=== PATIENT | male | born 1970 | race African-American/Black ===

== ENCOUNTER 2016-11-03 00:48 | Inpatient (IN) | payer BC, OTHER ==
[2016-11-02] MEDS: NORTRIPTYLINE 25 MG CAP PO SCH (21:00)
[~2016-11-03] VITALS: Ht 180.3 cm; Wt 87.7 kg
[~2016-11-03 00:48] MED LIST: LEVEMIR (INSULIN DETEMIR) 1 UNITS/0.01ML SC SCH
[2016-11-03] MEDS ORDERED: ONDANSETRON 4MG/2ML VIAL (J2405) As Ordered ONE ×2 (01:53→07:36)
[2016-11-03] MEDS ORDERED: MORPHINE 4 MG/ML 1ML SYRINGE As Ordered ONE ×2 (01:53→03:05)
[2016-11-03 01:57] LABS: BASO # 0.1 K/mm3 (0.0-0.2); BASO % 1.5 % (0.0-1.0); EOS # 0.1 K/mm3 (0.0-0.50); EOS % 1.6 % (0.0-3.0); LARGE UNSTAINED CELL # 0.1 K/mm3 (0.0-0.4); LARGE UNSTAINED CELL % 1.9 % (0.0-4.0); LYMPH # 1.8 K/mm3 (1.5-4.5); LYMPH % 32.6 % (24.0-44.0); MEAN CORPUSCULAR HEMOGLOBIN 28.8 pg (27.0-33.0); MEAN CORPUSCULAR HGB CONC 32.6 g/dl (32.0-36.5); MEAN CORPUSCULAR VOLUME 88.3 fl (80.0-96.0); MONO # 0.3 K/mm3 (0.0-0.8); MONO % 5.5 % (0.0-5.0); NEUTROPHILS # 2.9 K/mm3 (1.8-7.7); NEUTROPHILS % 56.9 % (36.0-66.0); PLATELET COUNT, AUTOMATED 179 k/mm3 (150-450); RED CELL DISTRIBUTION WIDTH 12.8 % (11.5-14.5); WHITE BLOOD COUNT 5.2 K/mm3 (4.0-10.0)
[2016-11-03 02:07] LABS: ALBUMIN 3.5 GM/DL (3.2-5.2); ALKALINE PHOSPHATASE 119 U/L (45-117); ALT/SGPT 20 U/L (12-78); AMYLASE 33 U/L (25-115); ANION GAP 8 MEQ/L (8-16); AST/SGOT 14 U/L (15-37); BILIRUBIN,DIRECT < 0.1 MG/DL (0.0-0.2); BILIRUBIN,TOTAL 0.3 MG/DL (0.2-1.0); BLOOD UREA NITROGEN 16 MG/DL (7-18); CALCIUM LEVEL 8.6 MG/DL (8.5-10.1); CARBON DIOXIDE LEVEL 28 MEQ/L (21-32); CHLORIDE LEVEL 99 MEQ/L (98-107); CREATININE FOR GFR 1.43 MG/DL (0.70-1.30); GLOMERULAR FILTRATION RATE > 60.0 (>60); POTASSIUM SERUM 4.4 MEQ/L (3.5-5.1); SODIUM LEVEL 135 MEQ/L (136-145); TOTAL PROTEIN 7.4 GM/DL (6.4-8.2)
[2016-11-03 02:14] LABS: VENOUS BASE EXCESS 0.9 (-2.0-2.0); VENOUS O2 SATURATION 94.8 % (60.0-80.0); VENOUS PARTIAL PRESSURE CO2 46.1 mmHg (38.0-50.0); VENOUS PARTIAL PRESSURE O2 74.4 mmHg (30.0-50.0); VENOUS STANDARD HCO3 25.2 MEQ/L
[2016-11-03 02:20] LABS: GLUCOSE, FASTING 684 MG/DL (70-105)
[2016-11-03] MEDS ORDERED: ISOVUE-370 76% 100ML VIAL (Q9967) As Ordered ONE (02:52)
[2016-11-03] MEDS ORDERED: HumuLIN R (REGULAR) INSULIN (NovoLIN R) **100U/ML** PER UNIT As Ordered ONE ×3 (03:52→12:23)
[2016-11-03] MEDS ORDERED: METF500T PO (04:01)
[2016-11-03] MEDS ORDERED: CVS20TAB PO (04:01)
[2016-11-03] MEDS ORDERED: HUMA100I5 SC (04:01)
[2016-11-03] MEDS ORDERED: NORT25CA2 PO (04:01)
[2016-11-03] MEDS ORDERED: LISI10TA4 PO (04:01)
[2016-11-03] MEDS ORDERED: INSULADS SC (04:01)
--- NOTE | 2016-11-03 04:30 | REPUSA ---
CLINICAL HISTORY: Abdominal pain. TECHNIQUE: Multiple axial, sagittal and coronal CT images were obtained through the abdomen and pelvi s after administration of intravenous contrast material. COMMENTS: The liver is of uniform attenuation without mass or defect. There is no intra or extrahepatic biliary ductal dilatation. Well defined hypodense lesion of the spl een. The gallbladder contains gallstones. 5.9 cm peripherally calcified pancreatic tail cyst. There is no evidence of adrenal mass. 2.3 cm cyst of the right kidney. Both kidneys demonstrate prompt and equal nephrograms. There is no evidence of renal or ureteral mass . No renal or ureteral calculi are identified. There is no hydroureter or hydronephrosis. No evidence for appendicitis. There is no bowel wall thickening. No evidence for small or large karson l obstruction. There is no evidence of abdominal ascites or lymphadenopathy. Fluid-filled mildly dila aylin small bowel. There is no evidence of intrinsic or extrinsic bladder mass. There is no pelvic ascites or lymphadeno pita. Fecal stasis in the large bowels. Images of the lung bases show no evidence of pleural or parenchymal mass. There are no pleural effusi ons. The bony structures are free of lytic or blastic lesions. Multilevel degenerative changes are seen in volving the thoracolumbar spine. Scattered calcifications are seen involving the aorta and major bran ches compatible with atherosclerosis. IMPRESSION: Cholelithiasis. Simple cyst of the right kidney. Well defined hypodense lesion of the spleen. Peripherally calcified pancreatic tail cyst. Large bowel fecal stasis. Fluid-filled mildly dilated small bowel. Ileus versus developing partial small bowel obstruction. Thank you for your kind referral of this patient.
[2016-11-03] MEDS ORDERED: NS 1,000 ML IV SCH (05:03)
[2016-11-03] MEDS ORDERED: ONDANSETRON 4MG/2ML VIAL (J2405) IV PRN (05:15)
[2016-11-03] MEDS ORDERED: POTASSIUM CHLORIDE INJ 30 MEQ in D5W/0.45% SODIUM CHLORIDE 1,000 ML IV SCH (05:33)
[2016-11-03] MEDS ORDERED: LEVEMIR (INSULIN DETEMIR) 1 UNITS/0.01ML As Ordered ONE (05:34)
[2016-11-03] MEDS: HEPARIN SOD (PORCINE) 5000 UNITS/ML VIAL SC SCH ×3 (06:00→20:48)
[2016-11-03] MEDS ORDERED: DEXTROSE 50% 50 ML SYRINGE IV PRN (06:00)
[2016-11-03] MEDS ORDERED: GLUCOSE 4 GM CHEW TABLET PO PRN (06:00)
[2016-11-03] MEDS ORDERED: GLUCAGON FOR INJ 1 MG VIAL (J1610) SC PRN (06:00)
[2016-11-03 06:25] LABS: BASO # 0.1 K/mm3 (0.0-0.2); BASO % 1.1 % (0.0-1.0); EOS # 0.1 K/mm3 (0.0-0.50); EOS % 1.6 % (0.0-3.0); LARGE UNSTAINED CELL # 0.1 K/mm3 (0.0-0.4); LARGE UNSTAINED CELL % 1.6 % (0.0-4.0); LYMPH # 2.7 K/mm3 (1.5-4.5); LYMPH % 34.7 % (24.0-44.0); MEAN CORPUSCULAR HEMOGLOBIN 28.5 pg (27.0-33.0); MEAN CORPUSCULAR HGB CONC 33.7 g/dl (32.0-36.5); MEAN CORPUSCULAR VOLUME 84.6 fl (80.0-96.0); MONO # 0.4 K/mm3 (0.0-0.8); MONO % 5.4 % (0.0-5.0); NEUTROPHILS # 4.2 K/mm3 (1.8-7.7); NEUTROPHILS % 55.5 % (36.0-66.0); PLATELET COUNT, AUTOMATED 193 k/mm3 (150-450); RED CELL DISTRIBUTION WIDTH 12.9 % (11.5-14.5); WHITE BLOOD COUNT 7.6 K/mm3 (4.0-10.0)
[2016-11-03 06:48] LABS: ANION GAP 8 MEQ/L (8-16); BLOOD UREA NITROGEN 14 MG/DL (7-18); CALCIUM LEVEL 9.6 MG/DL (8.5-10.1); CARBON DIOXIDE LEVEL 29 MEQ/L (21-32); CHLORIDE LEVEL 109 MEQ/L (98-107); CREATININE FOR GFR 1.18 MG/DL (0.70-1.30); GLOMERULAR FILTRATION RATE > 60.0 (>60); GLUCOSE, FASTING 138 MG/DL (70-105); MAGNESIUM LEVEL 2.1 MG/DL (1.8-2.4); POTASSIUM SERUM 3.6 MEQ/L (3.5-5.1)
[2016-11-03 06:53] LABS: SODIUM LEVEL 146 MEQ/L (136-145)
[2016-11-03] MEDS: HumaLOG INSULIN (NovoLOG) PER UNIT SC SCH ×4 (07:26→20:32)
[2016-11-03 07:41] LABS: ANION GAP 8 MEQ/L (8-16); BLOOD UREA NITROGEN 15 MG/DL (7-18); CALCIUM LEVEL 9.6 MG/DL (8.5-10.1); CARBON DIOXIDE LEVEL 30 MEQ/L (21-32); CHLORIDE LEVEL 108 MEQ/L (98-107); CREATININE FOR GFR 1.21 MG/DL (0.70-1.30); GLOMERULAR FILTRATION RATE > 60.0 (>60); GLUCOSE, FASTING 147 MG/DL (70-105); POTASSIUM SERUM 3.7 MEQ/L (3.5-5.1); SODIUM LEVEL 146 MEQ/L (136-145)
[2016-11-03 08:00] VITALS: BP 93/64
--- NOTE | 2016-11-03 08:34 | REP ---
Chest x-ray: Two views. History: Acute respiratory distress . Comparison study: February 22, 2016 . Findings: The lungs are well inflated and free of infiltrate. The pleural angles are sharp. The heart size is normal. Pulmonary vasculature is not increased. No significant bony abnormality is seen. The previously noted peripherally calcified left upper quadrant lesion is just barely visible on PA chest radiograph. This is unchanged from February 22, 2016. This is seen on today's CT. Impression: Peripherally calcified lesion in the left upper quadrant of the abdomen, otherwise negative chest x-ray. Signed by Galdino Wilcox MD 11/03/2016 08:26 A
[2016-11-03] MEDS ORDERED: OMEPRAZOLE 20 MG CAP As Ordered ONE (08:45)
[2016-11-03] MEDS ORDERED: LISINOPRIL 10 MG TAB PO SCH (09:00)
--- NOTE | 2016-11-03 09:05 | HPE ---
DATE OF ADMISSION: 11/03/2016 ATTENDING PHYSICIAN: Ping Voss MD PRIMARY CARE PHYSICIAN: [facility], Dr. Sun CHIEF COMPLAINT: Vomiting, diarrhea, upper left quadrant abdominal pain. HISTORY OF PRESENT ILLNESS: Mr. Baptiste is a 45-year-old male with multiple past medical history, who presented due to experiencing severe left upper abdominal pain, as well as vomiting and diarrhea. The patient expressed that his symptoms started on Friday morning. When he woke up, he felt uncomfortable. The patient had one episode of diarrhea, and the patient expressed that he has Humalog, however, the patient did not eat. The patient expressed that he felt tired, so he went back to bed. However, the patient noticed that throughout the day, the patient's abdominal pain increased, as well as feeling nauseated. The patient had several episodes of vomiting, as well as diarrhea. However, the patient did not notice any abnormal color in his vomit or his stool. The patient denies any fever. However, the patient has chills and night sweats. The patient did not have any sick contact. The patient denies having any new diet. The patient is visiting from [place] his relative in [place]. The patient expressed that he is compliant with his insulin. The patient has his Lantus 30 units the night before. The patient has been diagnosed with pancreatis, and the patient had the pseudocyst of his pancreas, which was aspirated in 2003. The patient also experienced lightheadedness and headache. The patient expressed that the headache is continuing to bother him at this moment. The patient expressed that the abdominal pain when it started in the morning, it was 5/10. However, the patient expressed that the abdominal pain has increased to 8/10 or 9/10, and because of that, he could not tolerate anything by mouth. The patient expressed that around midnight, the patient could not tolerate the pain anymore, and he noticed that his symptoms became worse. Therefore, he called emergency medical care manager (EMT). At the emergency room (ER), the patient received normal saline bolus 1 liter. The patient also received Zofran, as well as Motrin for pain management. The patient started on insulin drip, and the hospitalist was called to admit the patient. ALLERGIES: TYLENOL causes hives. ASPIRIN causes hives. HOME MEDICATIONS: - Lantus 30 units subcutaneous nightly - Humalog 22 units subcutaneous three times a day - lisinopril 10 mg by mouth daily - metformin HCl 500 mg by mouth twice a day - nortriptyline 25 mg by mouth nightly - omeprazole 20 mg by mouth daily PAST MEDICAL HISTORY: 1. Diabetes, controlled. 2. Pancreatitis. 3. Gallstone. 4. Hypertension. 5. Pancreatic pseudocyst. PAST SURGICAL HISTORY: 1. Amputation of the 5th digit of the right foot. 2. Amputation of the 2nd digit of the left foot. REVIEW OF SYSTEMS: GENERAL: The patient denies fever. However, the patient has chills and night sweats. The patient denies weight loss, weight gain. HEENT: The patient denies acute vision or hearing changes. However, the patient experiencing headache and lightheadedness. The patient denies problem with chewing food. However, the patient could not tolerate solid food due to abdominal pain. NECK: The patient denies lumps, bumps, or decreased range of motion of his neck. CHEST: The patient denies palpitations, racing or skipping heartbeat, chest pain. LUNGS: The patient denies shortness of breath, coughing, or gasping for air. ABDOMEN: The patient experiences left upper quadrant abdominal pain. The patient has diarrhea and vomiting. However, the patient denies melena, hematochezia, hemoptysis. NEUROLOGIC: The patient denies history of transient ischemic attack (TIA), cerebrovascular accident (CVA), or seizure-type activities. PHYSICAL EXAMINATION: VITAL SIGNS: Blood pressure 127/88, pulse 94, respiratory rate 20,temperature 97, pulse oximetry 100% on room air, weight 87.09 kg, height 180.34 cm, body mass index (BMI) 26.78. GENERAL APPEARANCE: The patient was lying in bed, no acute distress. The patient was awake, alert, and oriented to time, place, and person. HEENT: Normocephalic, atraumatic. Pupils are equal. Oral mucosa is moist. NECK: Soft, supple. No lymphadenopathy. No thyromegaly. HEART: Regular rate and rhythm. Normal S1, S2. ABDOMEN: Soft. Tender to palpation, mostly on the upper quadrant, left upper quadrant more than the right upper quadrant. Positive bowel sounds in all quadrants. EXTREMITIES: No lower extremity edema. +2 pulses in both lower extremities. The patient has amputation of the 5th digit of the right foot and the 2nd digit of the left foot. NEUROLOGICAL: Cranial nerves II-XII was intact. The patient has sensation difficulties in both lower extremities in the feet bilaterally. LOWER EXTREMITIES: The patient has normal range of motion in both lower extremities. LABORATORY DATA: White blood cells 5.2, red blood cells 4.72, hemoglobin 13.6, hematocrit 41.6, MCV 88.3, MCH 28.8, MCHC 32.6, RDW 12.8, platelet count 179, neutrophil percentage 56.9, lymphocyte percentage 32.6, monocyte percentage 5.5, eosinophil percentage 1.6, basophil percentage 1.5, leukocyte percentage 1.9. VBG: pH 7.378, bicarbonate standard 25.2, VBG PCO2 46.1, VBG pO2 74.4, VBG HCO 3 26.5, VBG total CO2 28, VBG O2 saturation 94.8, VBG base excess 0.9. Sodium 135, potassium 4.4, chloride 99, carbon dioxide 28, anion gap 8, BUN 16, creatinine 1.43, glomerular filtration rate more than 60, fasting glucose 684, osmolality 325, calcium 8.6, total bilirubin 0.3, direct bilirubin less than 0.1, AST 14, ALT 20, alkaline phosphatase 119, total protein 7.4, albumin 3.5, amylase 33, lipase 197. Urine color straw, urine appearance clear, urine pH 5, urine specific gravity 1.029, urine protein negative, urine glucose 3+, urine ketones negative, urine blood negative, urine nitrite negative, urine bilirubin negative, urine urobilinogen 0.2, urine leukocyte esterase negative, urine white blood cells 0, urine red blood cells 1, urine hyaline cast 0, urine bacteria negative, urine squamous epithelial cells 0. Urine culture is pending. Blood culture is pending. CT of abdomen and pelvis with contrast, which shows cholelithiasis, simple cyst of the right kidney, well-defined hypodense lesion of the spleen, peripherally calcified pancreatic tail cyst, large bowel fecal stasis, fluid-filled mildly dilated small bowel, ileus versus developing partial small bowel obstruction. ASSESSMENT AND PLAN: 1. Hyperosmolar hyperglycemic state. At the time of admission, the patient's plasma osmolality was elevated, as well as glucose level. However, anion gap was closed. The patient was started on insulin drip, which decreased the glucose level to 325. At this time, we have stopped the drip, and we have started the patient on Levemir and sliding scale. However, we will continue the patient on potassium chloride plus sodium chloride at a rate of 150 mL/hour and make the patient nothing by mouth due to the patient is having abdominal pain. We will continue monitoring the patient's glucose level. At this time, however, the patient is stable. Also, we administered a dose of Levemir that the patient receives at home at this moment. Due to the possibility of infection, we have ordered a blood culture, as well as urine culture and urinalysis (UA). The results are pending at this time. 2. Abdominal pain. We have CT of abdomen, which shows possibility of ileus versus partial bowel obstruction. At this time, we make the patient nothing by mouth. Will continue the patient on intravenous (IV) fluids, and we will monitor the patient for any abnormal symptoms. 3. Diabetes. We will continue the patient on a sliding scale and the home dose of Levemir (30 units nightly subcutaneous). 4. Pancreatitis. This is a chronic issue. The patient's lipase today is in normal range. 5. Acute kidney injury. The patient's creatinine level has increased today to 1.46. However, the patient's glomerular filtration rate is normal. This is possibly secondary to dehydration versus medications versus other diseases (diabetes). At this time, we will continue the patient on IV fluid, and we will stop nephrogenic medication, and we will continue to monitor the patient for any abnormal symptoms. 6. Hypertension. At this time, the patient's blood pressure is stable. At home, the patient was on lisinopril. However, we have stopped lisinopril due to abnormal creatinine level. We will continue to monitor the patient for any abnormal symptoms. 7. Tobacco abuse. This is a chronic issue. At this time, the patient is stable. 8. Diabetic neuropathy. At this time, the patient is stable. The patient is also on nortriptyline. We will continue to monitor the patient for any abnormal symptoms. 9. Deep venous thrombosis (DVT) prophylaxis. The patient is on heparin 5000 units subcutaneous every 8. My preceptor for this patient encounter was Dr. Ping Voss. The preceptor was physically present in the building during the encounter and was fully available. As needed, all aspects of the patient interview, examination, medical decision making process, and medical care plan development were reviewed and approved by the preceptor. The preceptor is aware and concurs with the plan as stated in the body of this note and will attest to such by his/her cosignature.
[2016-11-03] MEDS: OMEPRAZOLE 20 MG CAP PO SCH (09:07)
[2016-11-03] MEDS ORDERED: METOCLOPRAMIDE INJ 10MG/2ML VIAL (J2765) IV PRN (09:15)
[2016-11-03 09:52] LABS: ANION GAP 10 MEQ/L (8-16); BLOOD UREA NITROGEN 14 MG/DL (7-18); CALCIUM LEVEL 8.7 MG/DL (8.5-10.1); CARBON DIOXIDE LEVEL 27 MEQ/L (21-32); CHLORIDE LEVEL 104 MEQ/L (98-107); CREATININE FOR GFR 1.23 MG/DL (0.70-1.30); GLOMERULAR FILTRATION RATE > 60.0 (>60); SODIUM LEVEL 141 MEQ/L (136-145)
[2016-11-03 09:55] LABS: GLUCOSE, FASTING 471 MG/DL (70-105)
[2016-11-03] MEDS ORDERED: HumaLOG INSULIN (NovoLOG) PER UNIT SC ONE ×2 (10:00→10:45)
[2016-11-03] MEDS: NICOTINE 14 MG/24 HR TRANSDERMAL TD SCH (10:13)
[2016-11-03] MEDS ORDERED: HumaLOG INSULIN (NovoLOG) PER UNIT As Ordered ONE (10:33)
[2016-11-03] MEDS ORDERED: METOCLOPRAMIDE INJ 10MG/2ML VIAL (J2765) As Ordered ONE (10:34)
[2016-11-03 11:27] LABS: ANION GAP 6 MEQ/L (8-16); BLOOD UREA NITROGEN 13 MG/DL (7-18); CALCIUM LEVEL 8.6 MG/DL (8.5-10.1); CARBON DIOXIDE LEVEL 28 MEQ/L (21-32); CHLORIDE LEVEL 105 MEQ/L (98-107); CREATININE FOR GFR 1.04 MG/DL (0.70-1.30); GLOMERULAR FILTRATION RATE > 60.0 (>60); POTASSIUM SERUM 4.2 MEQ/L (3.5-5.1); SODIUM LEVEL 139 MEQ/L (136-145)
[2016-11-03 11:35] LABS: GLUCOSE, FASTING 431 MG/DL (70-105)
[2016-11-03 12:00] VITALS: BP 92/58
[2016-11-03] MEDS ORDERED: HumuLIN R (REGULAR) INSULIN (NovoLIN R) **100U/ML** PER UNIT IV ONE (12:15)
[2016-11-03] MEDS ORDERED: KCL 40MEQ in NS 1000ML 1,000 ML IV SCH (12:15)
[2016-11-03] MEDS ORDERED: KCL 40MEQ IN 0.9%NACL 1000ML As Ordered ONE (12:23)
[2016-11-03 13:31] LABS: ANION GAP 6 MEQ/L (8-16); BLOOD UREA NITROGEN 12 MG/DL (7-18); CALCIUM LEVEL 9.2 MG/DL (8.5-10.1); CARBON DIOXIDE LEVEL 30 MEQ/L (21-32); CHLORIDE LEVEL 110 MEQ/L (98-107); CREATININE FOR GFR 0.93 MG/DL (0.70-1.30); GLOMERULAR FILTRATION RATE > 60.0 (>60); GLUCOSE, FASTING 83 MG/DL (70-105); POTASSIUM SERUM 3.7 MEQ/L (3.5-5.1); SODIUM LEVEL 146 MEQ/L (136-145)
[2016-11-03] MEDS ORDERED: HEPARIN SOD (PORCINE) 5000 UNITS/ML VIAL As Ordered ONE (14:03)
[2016-11-03] MEDS ORDERED: KETOROLAC TROMETHAMINE 10 MG TAB PO ONE (14:30)
[2016-11-03] MEDS ORDERED: KETOROLAC TROMETHAMINE 10 MG TAB As Ordered ONE (14:45)
[2016-11-03 16:00] VITALS: BP 102/68
[2016-11-03 16:33] VITALS: BP 102/69
--- NOTE | 2016-11-03 16:35 | EDDOCDS ---
Physician Documentation [facility] Name: Poppy Baptiste Age: 45 yrs Sex: Male : 1970 Arrival Date: 11/03/2016 Time: 00:48 Bed Admit Hold Private MD: NO PRIMARY PHYSICIAN, . Disposition: 11/03/16 05:16 Hospitalization ordered by Ping Voss for Inpatient Admission. Preliminary diagnosis is Diabetes mellitus due to underlying condition with hyperosmolarity. - Bed requested for PCU. - Status is Inpatient Admission. ar3 - Condition is Stable. - Problem is an acute exacerbation. - Symptoms have improved. Historical: - Allergies: tylenolhives; Aspirinhives; - Home Meds: 1. Humalog 100 unit/mL Sub-Q soln 22 unit three times a day (Last dose: 11/02/2016 08:00) 2. Lantus 100 unit/mL Sub-Q soln 30 unit nightly (Last dose: 11/01/2016 21:00) 3. metformin 500 mg oral tab 4. omeprazole 40 mg Oral cpDR 1 cap once daily (Last dose: 11/02/2016) 5. 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 Patient uses No barriers to communication noted, The patient speaks fluent Dutch, Speaks appropriately for age. - Family history: Not pertinent. - : The pt / caregiver states he / she is not on anticoagulants. Home medication list is obtained from the patient. - Exposure Risk Screening:: None identified. Vital Signs: 11/03 00:59 BP 127 / 88; Pulse 94; Resp 20; Temp 97(O); Pulse Ox 100% on R/A; Weight 87.09 kg / 192 jmv lbs (R); Height 5 ft. 11 in. (180.34 cm) (R); Pain 8/10; 01:00 BP 132 / 90 (auto/); ko2 01:00 Pulse Ox 100% ; ko2 01:15 BP 124 / 79 (auto/); ko2 01:15 Pulse Ox 99% ; ko2 01:29 Pulse Ox 98% ; ko2 01:30 BP 121 / 86 (auto/); ko2 01:45 BP 116 / 86 (auto/); ko2 01:45 Pulse Ox 99% ; ko2 02:00 Pulse Ox 98% ; ko2 02:00 BP 116 / 81 (auto/); ko2 02:05 Pulse Ox 98% ; ko2 02:15 BP 117 / 87 (auto/); ko2 02:30 BP 111 / 80 (auto/); ko2 02:30 Pulse Ox 99% ; ko2 02:44 Pulse Ox 100% ; ko2 02:45 BP 108 / 71 (auto/); ko2 03:00 BP 124 / 81 (auto/); ko2 03:00 Pulse Ox 99% ; ko2 03:15 BP 120 / 79 (auto/); ko2 03:15 Pulse Ox 99% ; ko2 03:29 Pulse Ox 98% ; ko2 03:30 BP 114 / 80 (auto/); ko2 03:45 Pulse Ox 97% ; ko2 03:45 BP 110 / 79 (auto/); ko2 04:00 BP 119 / 87 (auto/); ko2 04:00 Pulse Ox 98% ; ko2 04:15 BP 111 / 78 (auto/); ko2 04:15 Pulse Ox 99% ; ko2 04:45 BP 111 / 68 (auto/); ko2 04:45 Pulse Ox 98% ; ko2 05:00 BP 105 / 69 (auto/); ko2 05:00 Pulse Ox 99% ; ko2 05:15 BP 107 / 73 (auto/); ko2 05:15 Pulse Ox 98% ; ko2 05:30 BP 103 / 73 (auto/); ko2 05:30 Pulse Ox 98% ; ko2 05:44 Pulse Ox 97% ; ko2 05:45 BP 101 / 70 (auto/); ko2 06:00 BP 96 / 66 (auto/); ko2 06:00 Pulse Ox 98% ; ko2 06:15 BP 102 / 66 (auto/); ko2 06:15 Pulse Ox 97% ; ko2 07:18 BP 93 / 64 (auto/); kr3 07:27 Pulse 82 MON; Resp 16; Temp 97.1(O); Pulse Ox 99% ; kr3 08:15 BP 105 / 61 (auto/); kr3 08:15 Pulse Ox 100% ; kr3 00:59 Body Mass Index 26.78 (87.09 kg, 180.34 cm) jmv MDM: 01:49 NS 0.9% 1000 ml IV at bolus once ordered. mm11 01:49 Ondansetron 4 mg IVP once ordered. mm11 01:49 morphine 4 mg IVP every 30 minutes; Document pain score/vitals after each dose (Hold if mm11 SBP < 90mmHg) x2 ordered. 01:49 IV Saline Lock ordered. mm11 01:49 Undress patient appropriately for examination ordered. mm11 01:50 Amylase Ordered. EDMS 01:50 Basic Metabolic Profile Ordered. EDMS 01:50 CBC with Diff Ordered. EDMS 01:50 Lipase Ordered. EDMS 01:50 Liver Profile Ordered. EDMS 01:50 Urinalysis Ordered. EDMS 01:50 Urine Culture Ordered. EDMS 01:50 Venous Blood Gas (large pea green tube on ice) Ordered. EDMS 01:50 Osmolality, Serum Ordered. EDMS 02:23 CBC with Diff Reviewed. mm11 02:23 Urinalysis Reviewed. mm11 02:23 Venous Blood Gas (large pea green tube on ice) Reviewed. mm11 02:23 Osmolality, Serum Reviewed. mm11 02:24 Basic Metabolic Profile Reviewed. mm11 02:24 Liver Profile Reviewed. mm11 02:24 Amylase Reviewed. mm11 02:24 Lipase Reviewed. mm11 02:33 CT ABD & PELVIS: IV Contrast Only Ordered. EDMS 03:43 Insulin Regular Human (0.1 units/kg) 9 units IVP once ordered. mm11 03:43 Insulin Regular Human Infusion (0.1units/kg/hr) 9 units/hr IV at calculated rate Per mm11 protocol ordered. 03:44 BED REQUEST+ADM ordered. EDMS 04:56 Financial registration complete. hs2 05:07 Fingerstick Blood Sugar Ordered. EDMS 05:10 Admission / Observation Status ordered. EDMS 05:18 MAGNESIUM LEVEL Ordered. EDMS 05:18 BASIC METABOLIC PROFILE Ordered. EDMS 05:18 BASIC METABOLIC PROFILE Ordered. EDMS 05:19 BASIC METABOLIC PROFILE Ordered. EDMS 05:19 BASIC METABOLIC PROFILE Ordered. EDMS 05:19 BASIC METABOLIC PROFILE Ordered. EDMS 05:19 CARDIAC MARKER PANEL Ordered. EDMS 05:19 SPUTUM CULTURE AND GRAM STAIN Ordered. EDMS 05:19 BLOOD CULTURES Ordered. EDMS 05:19 GASTROINTESTINAL (GI) PANEL Ordered. EDMS 05:20 Chest, 2 view PA, Lat Ordered. EDMS 05:20 ELECTROCARDIOGRAM ADULT ordered. EDMS 05:21 CBC WITH DIFFERENTIAL Ordered. EDMS 05:24 Levemir - Insulin Detemir 100 unit/mL 30 units Sub-Q once ordered. mm11 05:30 [facility] Payment Agreement was scanned into [employer] and attached to record. hs2 06:17 BLOOD CULTURES Ordered. EDMS 07:49 T-Sheet-- Draft Copy was scanned into [employer] and attached to record. seh 10:08 NPO DIET ordered. EDMS 13:39 NM-Gastric Emptying Study Ordered. EDMS 13:42 COMPLETE COMPHRENSIVE METABOLI Ordered. EDMS 13:42 MAGNESIUM LEVEL Ordered. EDMS 13:42 PHOSPHOROUS LEVEL Ordered. EDMS 13:42 HEMOGLOBIN A1C Ordered. EDMS 14:59 Fingerstick Blood Sugar Ordered. EDMS Point of Care Testing: Blood Glucose: 05:06 Blood Glucose: 281 mg/dL; ko2 Ranges: Administered Medications: 02:11 Drug: NS 0.9% 1000 ml [sodium chloride 0.9 % intravenous solution] Route: IV; Rate: ko2 bolus; Site: left antecubital; 03:04 Follow up: IV Status: Completed infusion; IV Intake: 1000ml ko2 02:11 Drug: Ondansetron 4 mg [ondansetron HCl 2 mg/mL intravenous solution (2 mL)] Route: ko2 IVP; Site: left antecubital; 04:06 Follow up: Response: Nausea is resolved ko2 02:11 Drug: morphine 4 mg [morphine 4 mg/mL intravenous cartridge (1 mL)] Route: IVP; Site: ko2 left antecubital; 03:09 Drug: morphine 4 mg [morphine 4 mg/mL intravenous cartridge (1 mL)] Route: IVP; Site: ko2 left antecubital; 04:00 Drug: Insulin Regular Human (0.1 units/kg) 9 units [insulin regular human 100 unit/mL ko2 injection solution (0.09 mL)] {Co-Signature: malcom (Jailene Hoffmann RN).} Route: IVP; Site: left antecubital; 04:00 Drug: Insulin Regular Human Infusion (0.1units/kg/hr) 9 units/hr [insulin regular human ko2 100 unit/mL injection solution] {Co-Signature: malcom (Jailene Hoffmann RN).} Route: IV; Rate: calculated rate; Site: left antecubital; 05:37 Drug: Levemir - Insulin Detemir 30 units [insulin detemir 100 unit/mL subcutaneous ko2 solution (0.3 mL)] {Co-Signature: malcom (Jailene Hoffmann RN).} Route: Sub-Q; Site: left upper arm; Signatures: Dispatcher [employer] EDMS Man Shirley, DO DO mm11 Alesha Gonzales, FINANCIAL ASSISTANT FINANCIAL ASSISTANT ar3 Chey Mcintyre,ANTONIO RN ko2 Shobha Olsen, Reg Reg hs2 Abigail Jelly [facility] Jailene العراقي The chart was reviewed and I authenticate all verbal orders and agree with the evaluation and treatment provided.Corrections: (The following items were deleted from the chart) 05:19 05:19 GASTROINTESTINAL (GI) PANEL ordered. EDMS EDMS 05:19 05:19 GASTROINTESTINAL (GI) PANEL ordered. EDMS EDMS 05:59 05:10 CONSISTENT CARBOHYDRATES ordered. EDMS EDMS 06:04 05:19 URINE CULTURE ordered. EDMS EDMS 07:32 01:50 NOTHING BY MOUTH+DIET ordered. EDMS EDMS 07:32 05:59 NPO DIET ordered. EDMS EDMS 10:08 07:32 CLEAR LIQUIDS DIET ordered. EDMS EDMS 13:43 13:39 HEMOGLOBIN A1C ordered. EDMS EDMS Attachments: 05:30 [facility] Payment Agreement hs2 07:49 T-Sheet-- Draft Copy [facility]
--- NOTE | 2016-11-03 16:35 | EDDOCDS ---
Nurse's Notes [facility] Name: Poppy Baptiste Age: 45 yrs Sex: Male : 1970 Arrival Date: 11/03/2016 Time: 00:48 Bed Admit Hold Private MD: NO PRIMARY PHYSICIAN, . Diagnosis: Diabetes mellitus due to underlying condition with hyperosmolarity Presentation: 11/03 00:54 Presenting complaint: EMS states: nausea/vomiting/diarrhea that started earlier today, ko2 slight painful urination. Productive cough for a couple days. Dizziness and weakness. Suicide/Homicide risk assessment- the patient denies having any suicidal and/or homicidal ideations and does not present with any other emotional, behavioral or mental health complaints. Status: Patient is not a service technician or dependent. Transition of care: patient was not received from another setting of care. Care prior to arrival: See EMS report. Saline lock initiated. Glucose check. 592. 00:54 Acuity: FRANCESCO Level 3 ko2 00:54 Method Of Arrival: Ambulance ko2 02:12 Adult Sepsis Screening: The patient does not have new or worsening altered mentation. ko2 Patient's respiratory rate is less than 22. Systolic blood pressure is greater than 100. Patient has a qSOFA score of 0- Negative Sepsis Screen. Triage Assessment: 01:05 General: Appears in no apparent distress, Behavior is appropriate for age, cooperative. ko2 Pain: Location: posterior aspect of right lateral abdomen and left upper quadrant Pain currently is 8 out of 10 on a pain scale. HIV screening NA for this visit Offered previously. Neurological: No deficits noted. Respiratory: Airway is patent Respiratory effort is even, unlabored. GI: Abdomen is non- distended Bowel sounds present X 4 quads. Derm: Skin is normal. Musculoskeletal: Range of motion intact in all extremities. Historical: - Allergies: tylenolhives; Aspirinhives; - Home Meds: 1. Humalog 100 unit/mL Sub-Q soln 22 unit three times a day (Last dose: 11/02/2016 08:00) 2. Lantus 100 unit/mL Sub-Q soln 30 unit nightly (Last dose: 11/01/2016 21:00) 3. metformin 500 mg oral tab 4. omeprazole 40 mg Oral cpDR 1 cap once daily (Last dose: 11/02/2016) 5. 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 Patient uses No barriers to communication noted, The patient speaks fluent [place], Speaks appropriately for age. - Family history: Not pertinent. - : The pt / caregiver states he / she is not on anticoagulants. Home medication list is obtained from the patient. - Exposure Risk Screening:: None identified. Screenin:06 Screening information is obtained from the patient. Fall risk: No risks identified. ko2 Assistance ADL's: requires no assistance with activities of daily living. Abuse/DV Screen: The patient / caregiver reports he/she is: not in a situation that causes fear, pain or injury. Nutritional screening: No deficits noted. Advance Directives: Currently, there is no health care proxy. home support is adequate. Assessment: 01:06 General: See triage assessment. ko2 02:12 General: Appears comfortable, Behavior is appropriate for age, cooperative. Pain: ko2 Location: left upper quadrant and posterior aspect of right lateral abdomen Pain currently is 8 out of 10 on a pain scale. Neurological: Level of Consciousness is awake, alert. Respiratory: Airway is patent Respiratory effort is even, unlabored. GI: Abd is soft. Derm: Skin is normal. 02:59 General: Appears in no apparent distress, Behavior is cooperative. Pain: Location: left ko2 upper quadrant and posterior aspect of right lateral abdomen Pain currently is 5 out of 10 on a pain scale. Neurological: Level of Consciousness is awake, alert. Respiratory: Airway is patent Respiratory effort is even, unlabored. Derm: Skin is normal. 04:13 General: Appears in no apparent distress, comfortable, Behavior is appropriate for age, ko2 cooperative. Pain: Location: left upper quadrant and posterior aspect of right lateral abdomen. Neurological: Level of Consciousness is awake, alert. Respiratory: Airway is patent Respiratory effort is even, unlabored. Derm: Skin is normal. 05:05 General: Appears in no apparent distress, comfortable, Behavior is appropriate for age, ko2 cooperative. Pain: Location: left upper quadrant and posterior aspect of right lateral abdomen. Neurological: Level of Consciousness is awake, alert. Respiratory: Airway is patent Respiratory effort is even, unlabored. Derm: Skin is normal. 06:29 General: Appears in no apparent distress, comfortable, Behavior is appropriate for age, ko2 cooperative. Neurological: Level of Consciousness is awake, alert. Respiratory: Airway is patent Respiratory effort is even, unlabored. Derm: Skin is normal. 07:31 Reassessment: patient complains of nausea and abdominal discomfort. Patient had eaten kr3 eggs and 3/4 of muffin and OJ on breakfast tray. Per admission orders meal was cancelled and patient was suppose to be NPO. Provider notified that meal was given. [place] nurse aware of situation and will monitor patient. Cardiovascular: Rhythm is sinus rhythm No ectopy. 08:55 Reassessment: Patient appears in no apparent distress at this time. Cardiovascular: kr3 Rhythm is sinus rhythm No ectopy. GI: other tolerating PO fluids. Vital Signs: 00:59 BP 127 / 88; Pulse 94; Resp 20; Temp 97(O); Pulse Ox 100% on R/A; Weight 87.09 kg (R); jmv Height 5 ft. 11 in. (180.34 cm) (R); Pain 8/10; 01:00 BP 132 / 90 (auto/); ko2 01:00 Pulse Ox 100% ; ko2 01:15 BP 124 / 79 (auto/); ko2 01:15 Pulse Ox 99% ; ko2 01:29 Pulse Ox 98% ; ko2 01:30 BP 121 / 86 (auto/); ko2 01:45 BP 116 / 86 (auto/); ko2 01:45 Pulse Ox 99% ; ko2 02:00 Pulse Ox 98% ; ko2 02:00 BP 116 / 81 (auto/); ko2 02:05 Pulse Ox 98% ; ko2 02:15 BP 117 / 87 (auto/); ko2 02:30 BP 111 / 80 (auto/); ko2 02:30 Pulse Ox 99% ; ko2 02:44 Pulse Ox 100% ; ko2 02:45 BP 108 / 71 (auto/); ko2 03:00 BP 124 / 81 (auto/); ko2 03:00 Pulse Ox 99% ; ko2 03:15 BP 120 / 79 (auto/); ko2 03:15 Pulse Ox 99% ; ko2 03:29 Pulse Ox 98% ; ko2 03:30 BP 114 / 80 (auto/); ko2 03:45 Pulse Ox 97% ; ko2 03:45 BP 110 / 79 (auto/); ko2 04:00 BP 119 / 87 (auto/); ko2 04:00 Pulse Ox 98% ; ko2 04:15 BP 111 / 78 (auto/); ko2 04:15 Pulse Ox 99% ; ko2 04:45 BP 111 / 68 (auto/); ko2 04:45 Pulse Ox 98% ; ko2 05:00 BP 105 / 69 (auto/); ko2 05:00 Pulse Ox 99% ; ko2 05:15 BP 107 / 73 (auto/); ko2 05:15 Pulse Ox 98% ; ko2 05:30 BP 103 / 73 (auto/); ko2 05:30 Pulse Ox 98% ; ko2 05:44 Pulse Ox 97% ; ko2 05:45 BP 101 / 70 (auto/); ko2 06:00 BP 96 / 66 (auto/); ko2 06:00 Pulse Ox 98% ; ko2 06:15 BP 102 / 66 (auto/); ko2 06:15 Pulse Ox 97% ; ko2 07:18 BP 93 / 64 (auto/); kr3 07:27 Pulse 82 MON; Resp 16; Temp 97.1(O); Pulse Ox 99% ; kr3 08:15 BP 105 / 61 (auto/); kr3 08:15 Pulse Ox 100% ; kr3 00:59 Body Mass Index 26.78 (87.09 kg, 180.34 cm) [facility] Vitals: 02:13 Log In Time N/A - ambulance arrival. ko2 ED Course: 00:49 Patient visited by Guilherme Ruiz, Airconditioning Engineer. ml3 00:49 NO PRIMARY PHYSICIAN, . is Private Physician. ml3 00:49 Patient moved to Waiting ml3 00:50 Chey Mcintyre,RN is Primary Nurse. ml3 00:50 Patient moved to 18 ml3 00:55 Triage Initiated ko2 01:00 Patient visited by Wilson Gibbs PCA. v 01:00 Pt greeted and oriented to ED. Patient advised of names of staff involved in care, [facility] location of call nam, wait times and NPO status. Patient has correct armband on for positive identification. Placed in gown. Bed in low position. Call light in reach. Side rails up X2. Pulse ox on. NIBP on. 01:06 Patient visited by Chey Mcintyre RN. ko2 01:40 Man Shirley DO is Attending Physician. mm11 01:40 Patient visited by Man Shirley DO. mm11 01:48 Patient visited by Man Shirley DO. mm11 01:51 Liver Profile Sent. ko2 01:51 Lipase Sent. ko2 01:51 CBC with Diff Sent. ko2 01:51 Basic Metabolic Profile Sent. ko2 01:51 Amylase Sent. ko2 01:51 Osmolality, Serum Sent. ko2 02:09 Urinalysis Sent. jmv 02:09 Urine Culture Sent. jmv 02:10 Venous Blood Gas (large pea green tube on ice) Sent. jmv 02:13 Maintain field IV. Dressing intact. Good blood return noted. Site clean & dry. Gauge & ko2 site: 18 gauge left AC. 02:14 Patient visited by Chey Mcintyre RN. ko2 02:25 Notified attending ED physician of Critical lab value. Dr Shirley notified of glucose malcom of 684mg/dl. 02:59 Patient visited by Chey Mcintyre RN. ko2 03:00 The patient / caregiver is instructed regarding the plan of care and ED course. ko2 03:37 Patient visited by Man Shirley DO. mm11 04:42 Patient visited by Chey Mcintyre RN. ko2 04:53 Ping Voss transportation department supervisor. ys2 04:54 CT ABD & PELVIS: IV Contrast Only Returned. EDMS 05:05 Patient visited by Chey Mcintyre RN. ko2 05:16 Ping Voss is Hospitalizing Provider. mm11 05:30 [facility] Payment Agreement was scanned into [employer] and attached to record. hs2 05:38 Patient moved to Admit Hold ml3 07:06 Yola Cooley,ANTONIO is Primary Nurse. kr3 07:34 No procedures done that require assistance. kr3 07:49 T-Sheet-- Draft Copy was scanned into [employer] and attached to record. seh 08:49 Chest, 2 view PA, Lat Returned. EDMS 09:07 Patient moved to 20 js13 10:01 Patient moved to Admit Hold [facility] 11:50 Primary Nurse role handed off by Chey Mcintyre,ANTONIO ct3 Administered Medications: 02:11 Drug: NS 0.9% 1000 ml [sodium chloride 0.9 % intravenous solution] Route: IV; Rate: ko2 bolus; Site: left antecubital; 03:04 Follow up: IV Status: Completed infusion; IV Intake: 1000ml ko2 02:11 Drug: Ondansetron 4 mg [ondansetron HCl 2 mg/mL intravenous solution (2 mL)] Route: ko2 IVP; Site: left antecubital; 04:06 Follow up: Response: Nausea is resolved ko2 02:11 Drug: morphine 4 mg [morphine 4 mg/mL intravenous cartridge (1 mL)] Route: IVP; Site: ko2 left antecubital; 03:09 Drug: morphine 4 mg [morphine 4 mg/mL intravenous cartridge (1 mL)] Route: IVP; Site: ko2 left antecubital; 04:00 Drug: Insulin Regular Human (0.1 units/kg) 9 units [insulin regular human 100 unit/mL ko2 injection solution (0.09 mL)] {Co-Signature: malcom (Jailene Hoffmann RN).} Route: IVP; Site: left antecubital; 04:00 Drug: Insulin Regular Human Infusion (0.1units/kg/hr) 9 units/hr [insulin regular human ko2 100 unit/mL injection solution] {Co-Signature: malcom (Jailene Hoffmann RN).} Route: IV; Rate: calculated rate; Site: left antecubital; 05:37 Drug: Levemir - Insulin Detemir 30 units [insulin detemir 100 unit/mL subcutaneous ko2 solution (0.3 mL)] {Co-Signature: malcom (Jailene Hoffmann RN).} Route: Sub-Q; Site: left upper arm; Point of Care Testing: Blood Glucose: 05:06 Blood Glucose: 281 mg/dL; ko2 Ranges: Intake: 03:04 IV: 1000.00ml; Total: 1000.00ml. ko2 Output: 07:31 Urine: 1000.00ml (Voided); Total: 1000.00ml. kr3 Order Results: Lab Order: Amylase; SPEC'M 11/03/16 01:25 Test: AMYLASE; Value: 33; Range: 25-115; Units: U/L; Status: F Lab Order: Basic Metabolic Profile; SPEC'11/03/16 01:25 Test: GLUCOSE, FASTING; Value: 684; Range: 70-105; Abnormal: Above upper panic limits; Units: MG/DL; Status: F Test: BLOOD UREA NITROGEN; Value: 16; Range: 7-18; Units: MG/DL; Status: F Test: CREATININE FOR GFR; Value: 1.43; Range: 0.70-1.30; Abnormal: Above high normal; Units: MG/DL; Status: F Test: GLOMERULAR FILTRATION RATE; Value: > 60.0; Range: >60; Status: F Test: SODIUM LEVEL; Value: 135; Range: 136-145; Abnormal: Below low normal; Units: MEQ/L; Status: F Test: POTASSIUM SERUM; Value: 4.4; Range: 3.5-5.1; Units: MEQ/L; Status: F Test: CHLORIDE LEVEL; Value: 99; Range: 98-107; Units: MEQ/L; Status: F Test: CARBON DIOXIDE LEVEL; Value: 28; Range: 21-32; Units: MEQ/L; Status: F Test: ANION GAP; Value: 8; Range: 8-16; Units: MEQ/L; Status: F Test: CALCIUM LEVEL; Value: 8.6; Range: 8.5-10.1; Units: MG/DL; Status: F Test Note: ; Units are mL/min/1.73 m2 Chronic Kidney Disease Staging per NKF: Stage I & II GFR >=60 Normal to Mildly Decreased Stage III GFR 30-59 Moderately Decreased Stage IV GFR 15-29 Severely Decreased Stage V GFR <15 Very Little GFR Left ESRD GFR <15 on FIRE ALARM MECHANIC Lab Order: CBC with Diff; SPEC'11/03/16 01:25 Test: WHITE BLOOD COUNT; Value: 5.2; Range: 4.0-10.0; Units: K/mm3; Status: F Test: RED BLOOD COUNT; Value: 4.72; Range: 4.30-6.10; Units: M/mm3; Status: F Test: HEMOGLOBIN; Value: 13.6; Range: 14.0-18.0; Abnormal: Below low normal; Units: g/dl; Status: F Test: HEMATOCRIT; Value: 41.6; Range: 42.0-52.0; Abnormal: Below low normal; Units: %; Status: F Test: MEAN CORPUSCULAR VOLUME; Value: 88.3; Range: 80.0-96.0; Units: fl; Status: F Test: MEAN CORPUSCULAR HEMOGLOBIN; Value: 28.8; Range: 27.0-33.0; Units: pg; Status: F Test: MEAN CORPUSCULAR HGB CONC; Value: 32.6; Range: 32.0-36.5; Units: g/dl; Status: F Test: RED CELL DISTRIBUTION WIDTH; Value: 12.8; Range: 11.5-14.5; Units: %; Status: F Test: PLATELET COUNT, AUTOMATED; Value: 179; Range: 150-450; Units: k/mm3; Status: F Test: NEUTROPHILS %; Value: 56.9; Range: 36.0-66.0; Units: %; Status: F Test: LYMPH %; Value: 32.6; Range: 24.0-44.0; Units: %; Status: F Test: MONO %; Value: 5.5; Range: 0.0-5.0; Abnormal: Above high normal; Units: %; Status: F Test: EOS %; Value: 1.6; Range: 0.0-3.0; Units: %; Status: F Test: BASO %; Value: 1.5; Range: 0.0-1.0; Abnormal: Above high normal; Units: %; Status: F Test: LARGE UNSTAINED CELL %; Value: 1.9; Range: 0.0-4.0; Units: %; Status: F Test: NEUTROPHILS #; Value: 2.9; Range: 1.8-7.7; Units: K/mm3; Status: F Test: LYMPH #; Value: 1.8; Range: 1.5-4.5; Units: K/mm3; Status: F Test: MONO #; Value: 0.3; Range: 0.0-0.8; Units: K/mm3; Status: F Test: EOS #; Value: 0.1; Range: 0.0-0.50; Units: K/mm3; Status: F Test: BASO #; Value: 0.1; Range: 0.0-0.2; Units: K/mm3; Status: F Test: LARGE UNSTAINED CELL #; Value: 0.1; Range: 0.0-0.4; Units: K/mm3; Status: F Lab Order: Lipase; [facility] 11/03/16 01:25 Test: LIPASE; Value: 197; Range: 73-393; Units: U/L; Status: F Lab Order: Liver Profile; [facility] 11/03/16 01:25 Test: AST/SGOT; Value: 14; Range: 15-37; Abnormal: Below low normal; Units: U/L; Status: F Test: ALT/SGPT; Value: 20; Range: 12-78; Units: U/L; Status: F Test: ALKALINE PHOSPHATASE; Value: 119; Range: 45-117; Abnormal: Above high normal; Units: U/L; Status: F Test: BILIRUBIN,TOTAL; Value: 0.3; Range: 0.2-1.0; Units: MG/DL; Status: F Test: BILIRUBIN,DIRECT; Value: < 0.1; Range: 0.0-0.2; Units: MG/DL; Status: F Test: TOTAL PROTEIN; Value: 7.4; Range: 6.4-8.2; Units: GM/DL; Status: F Test: ALBUMIN; Value: 3.5; Range: 3.2-5.2; Units: GM/DL; Status: F Test: ALBUMIN/GLOBULIN RATIO; Value: 0.90; Range: 1.00-1.93; Abnormal: Below low normal; Status: F Lab Order: Urinalysis; [facility] 11/03/16 02:09 Test: APPEARANCE, URINE; Value: CLEAR; Range: CLEAR; Status: F Test: COLOR, URINE; Value: STRAW; Range: YELLOW; Status: F Test: PH,URINE; Value: 5.0; Range: 5.0-9.0; Units: UNITS; Status: F Test: SPECIFIC GRAVITY URINE AUTO; Value: 1.029; Range: 1.002-1.035; Status: F Test: PROTEIN, URINE AUTO; Value: NEGATIVE; Range: NEGATIVE; Units: mg/dL; Status: F Test: GLUCOSE, URINE (UA) AUTO; Value: 3+; Range: NEGATIVE; Abnormal: Above high normal; Units: mg/dL; Status: F Test: KETONE, URINE AUTO; Value: NEGATIVE; Range: NEGATIVE; Units: mg/dL; Status: F Test: UROBILINOGEN, URINE AUTO; Value: 0.2; Range: 0.0-2.0; Units: mg/dL; Status: F Test: BILIRUBIN, URINE AUTO; Value: NEGATIVE; Range: NEGATIVE; Status: F Test: NITRITE, URINE AUTO; Value: NEGATIVE; Range: NEGATIVE; Status: F Test: LEUKOCYTE ESTERASE, URINE AUTO; Value: NEGATIVE; Range: NEGATIVE; Status: F Test: BLOOD, URINE BLOOD; Value: NEGATIVE; Range: NEGATIVE; Status: F Test: WBC, URINE AUTO; Value: 0; Range: 0-3; Units: /HPF; Status: F Test: RBC, URINE AUTO; Value: 1; Range: 0-3; Units: /HPF; Status: F Test: BACTERIA, URINE AUTO; Value: NEGATIVE; Range: NEGATIVE; Status: F Test: SQUAMOUS EPITHELIAL CELL UR AU; Value: 0; Range: 0-6; Units: /HPF; Status: F Test: MUCUS, URINE; Value: SMALL; Range: NEGATIVE; Status: F Test: HYALINE CAST, URINE AUTO; Value: 0; Range: 0-1; Units: /LPF; Status: F Lab Order: Venous Blood Gas (large pea green tube on ice); SPEC'M 11/03/16 02:02 Test: VENOUS PH; Value: 7.378; Range: 7.330-7.430; Units: UNITS; Status: F Test: VENOUS PARTIAL PRESSURE CO2; Value: 46.1; Range: 38.0-50.0; Units: mmHg; Status: F Test: VENOUS PARTIAL PRESSURE O2; Value: 74.4; Range: 30.0-50.0; Abnormal: Above high normal; Units: mmHg; Status: F Test: VENOUS TOTAL CO2; Value: 28.0; Range: 24.0-28.0; Units: MEQ/L; Status: F Test: VENOUS HCO3; Value: 26.5; Range: 23.0-27.0; Units: MEQ/L; Status: F Test: VENOUS BASE EXCESS; Value: 0.9; Range: -2.0-2.0; Status: F Test: VENOUS STANDARD HCO3; Value: 25.2; Units: MEQ/L; Status: F Test: VENOUS O2 SATURATION; Value: 94.8; Range: 60.0-80.0; Abnormal: Above high normal; Units: %; Status: F Lab Order: Osmolality, Serum; [facility] 11/03/16 01:25 Test: OSMOLALITY SERUM; Value: 325; Range: 275-295; Abnormal: Above high normal; Units: MOSM/KG; Status: F Lab Order: Fingerstick Blood Sugar; 11/03/16 04:59 Test: BEDSIDE GLUCOSE; Value: 281; Range: 70-105; Abnormal: Above high normal; Units: MG/DL; Status: F Lab Order: MAGNESIUM LEVEL; 11/03/16 06:08 Test: MAGNESIUM LEVEL; Value: 2.1; Range: 1.8-2.4; Units: MG/DL; Status: F Lab Order: BASIC METABOLIC PROFILE; 11/03/16 06:08 Test: GLUCOSE, FASTING; Value: 138; Range: 70-105; Abnormal: Above high normal; Units: MG/DL; Status: F Test: BLOOD UREA NITROGEN; Value: 14; Range: 7-18; Units: MG/DL; Status: F Test: CREATININE FOR GFR; Value: 1.18; Range: 0.70-1.30; Units: MG/DL; Status: F Test: GLOMERULAR FILTRATION RATE; Value: > 60.0; Range: >60; Status: F Test: SODIUM LEVEL; Value: 146; Range: 136-145; Abnormal: High; Units: MEQ/L; Status: F Test: POTASSIUM SERUM; Value: 3.6; Range: 3.5-5.1; Units: MEQ/L; Status: F Test: CHLORIDE LEVEL; Value: 109; Range: 98-107; Abnormal: Above high normal; Units: MEQ/L; Status: F Test: CARBON DIOXIDE LEVEL; Value: 29; Range: 21-32; Units: MEQ/L; Status: F Test: ANION GAP; Value: 8; Range: 8-16; Units: MEQ/L; Status: F Test: CALCIUM LEVEL; Value: 9.6; Range: 8.5-10.1; Units: MG/DL; Status: F Test Note: ; Units are mL/min/1.73 m2 Chronic Kidney Disease Staging per NKF: Stage I & II GFR >=60 Normal to Mildly Decreased Stage III GFR 30-59 Moderately Decreased Stage IV GFR 15-29 Severely Decreased Stage V GFR <15 Very Little GFR Left ESRD GFR <15 on [employer] MECH[employer]IC Lab Order: BASIC METABOLIC PROFILE; SPEC'M 11/03/16 07:18 Test: GLUCOSE, FASTING; Value: 147; Range: 70-105; Abnormal: Above high normal; Units: MG/DL; Status: F Test: BLOOD UREA NITROGEN; Value: 15; Range: 7-18; Units: MG/DL; Status: F Test: CREATININE FOR GFR; Value: 1.21; Range: 0.70-1.30; Units: MG/DL; Status: F Test: GLOMERULAR FILTRATION RATE; Value: > 60.0; Range: >60; Status: F Test: SODIUM LEVEL; Value: 146; Range: 136-145; Abnormal: Above high normal; Units: MEQ/L; Status: F Test: POTASSIUM SERUM; Value: 3.7; Range: 3.5-5.1; Units: MEQ/L; Status: F Test: CHLORIDE LEVEL; Value: 108; Range: 98-107; Abnormal: Above high normal; Units: MEQ/L; Status: F Test: CARBON DIOXIDE LEVEL; Value: 30; Range: 21-32; Units: MEQ/L; Status: F Test: ANION GAP; Value: 8; Range: 8-16; Units: MEQ/L; Status: F Test: CALCIUM LEVEL; Value: 9.6; Range: 8.5-10.1; Units: MG/DL; Status: F Test Note: ; Units are mL/min/1.73 m2 Chronic Kidney Disease Staging per NKF: Stage I & II GFR >=60 Normal to Mildly Decreased Stage III GFR 30-59 Moderately Decreased Stage IV GFR 15-29 Severely Decreased Stage V GFR <15 Very Little GFR Left ESRD GFR <15 on [employer]RE [employer] MECH[employer]IC Lab Order: BASIC METABOLIC PROFILE; SPEC'M 11/03/16 09:25 Test: GLUCOSE, FASTING; Value: 471; Range: 70-105; Abnormal: Above upper panic limits; Units: MG/DL; Status: F Test: BLOOD UREA NITROGEN; Value: 14; Range: 7-18; Units: MG/DL; Status: F Test: CREATININE FOR GFR; Value: 1.23; Range: 0.70-1.30; Units: MG/DL; Status: F Test: GLOMERULAR FILTRATION RATE; Value: > 60.0; Range: >60; Status: F Test: SODIUM LEVEL; Value: 141; Range: 136-145; Units: MEQ/L; Status: F Test: POTASSIUM SERUM; Value: 4.0; Range: 3.5-5.1; Units: MEQ/L; Status: F Test: CHLORIDE LEVEL; Value: 104; Range: 98-107; Units: MEQ/L; Status: F Test: CARBON DIOXIDE LEVEL; Value: 27; Range: 21-32; Units: MEQ/L; Status: F Test: ANION GAP; Value: 10; Range: 8-16; Units: MEQ/L; Status: F Test: CALCIUM LEVEL; Value: 8.7; Range: 8.5-10.1; Units: MG/DL; Status: F Test Note: ; Units are mL/min/1.73 m2 Chronic Kidney Disease Staging per NKF: Stage I & II GFR >=60 Normal to Mildly Decreased Stage III GFR 30-59 Moderately Decreased Stage IV GFR 15-29 Severely Decreased Stage V GFR <15 Very Little GFR Left ESRD GFR <15 on FIRE [employer] MECH[employer]IC Lab Order: BASIC METABOLIC PROFILE; [facility] 11/03/16 10:57 Test: GLUCOSE, FASTING; Value: 431; Range: 70-105; Abnormal: Above upper panic limits; Units: MG/DL; Status: F Test: BLOOD UREA NITROGEN; Value: 13; Range: 7-18; Units: MG/DL; Status: F Test: CREATININE FOR GFR; Value: 1.04; Range: 0.70-1.30; Units: MG/DL; Status: F Test: GLOMERULAR FILTRATION RATE; Value: > 60.0; Range: >60; Status: F Test: SODIUM LEVEL; Value: 139; Range: 136-145; Units: MEQ/L; Status: F Test: POTASSIUM SERUM; Value: 4.2; Range: 3.5-5.1; Units: MEQ/L; Status: F Test: CHLORIDE LEVEL; Value: 105; Range: 98-107; Units: MEQ/L; Status: F Test: CARBON DIOXIDE LEVEL; Value: 28; Range: 21-32; Units: MEQ/L; Status: F Test: ANION GAP; Value: 6; Range: 8-16; Abnormal: Below low normal; Units: MEQ/L; Status: F Test: CALCIUM LEVEL; Value: 8.6; Range: 8.5-10.1; Units: MG/DL; Status: F Test Note: ; Units are mL/min/1.73 m2 Chronic Kidney Disease Staging per NKF: Stage I & II GFR >=60 Normal to Mildly Decreased Stage III GFR 30-59 Moderately Decreased Stage IV GFR 15-29 Severely Decreased Stage V GFR <15 Very Little GFR Left ESRD GFR <15 on [employer]RE [employer] MECH[employer]IC Lab Order: BASIC METABOLIC PROFILE; [facility] 11/03/16 13:10 Test: GLUCOSE, FASTING; Value: 83; Range: 70-105; Units: MG/DL; Status: F Test: BLOOD UREA NITROGEN; Value: 12; Range: 7-18; Units: MG/DL; Status: F Test: CREATININE FOR GFR; Value: 0.93; Range: 0.70-1.30; Units: MG/DL; Status: F Test: GLOMERULAR FILTRATION RATE; Value: > 60.0; Range: >60; Status: F Test: SODIUM LEVEL; Value: 146; Range: 136-145; Abnormal: High; Units: MEQ/L; Status: F Test: POTASSIUM SERUM; Value: 3.7; Range: 3.5-5.1; Units: MEQ/L; Status: F Test: CHLORIDE LEVEL; Value: 110; Range: 98-107; Abnormal: Above high normal; Units: MEQ/L; Status: F Test: CARBON DIOXIDE LEVEL; Value: 30; Range: 21-32; Units: MEQ/L; Status: F Test: ANION GAP; Value: 6; Range: 8-16; Abnormal: Below low normal; Units: MEQ/L; Status: F Test: CALCIUM LEVEL; Value: 9.2; Range: 8.5-10.1; Units: MG/DL; Status: F Test Note: ; Units are mL/min/1.73 m2 Chronic Kidney Disease Staging per NKF: Stage I & II GFR >=60 Normal to Mildly Decreased Stage III GFR 30-59 Moderately Decreased Stage IV GFR 15-29 Severely Decreased Stage V GFR <15 Very Little GFR Left ESRD GFR <15 on [employer] MECH[employer]IC Lab Order: CARDIAC MARKER PANEL; SPEC'M 11/03/16 06:08 Test: CPK CREATINE PHOSPHOKINASE; Value: 59; Range: 39-308; Units: U/L; Status: F Test: CK-MB VALUE MASS; Value: 1.0; Range: 0.0-3.6; Units: NG/ML; Status: F Test: MB/CK RELATIVE INDEX; Value: 1.69; Range: < OR =4; Status: F Test: TROPONIN I; Value: < 0.02; Range: < 0.10; Units: NG/ML; Status: F Test Note: ; DIAGNOSIS CRITERIA MMB ng/ml Relative Index (RI) NON-AMI < or = 5 N/A [place] > 5 < or = 4 AMI > 5 > 4 Lab Order: CBC WITH DIFFERENTIAL; [facility]/03[facility] 06:08 Test: WHITE BLOOD COUNT; Value: 7.6; Range: 4.0-10.0; Units: K/mm3; Status: F Test: RED BLOOD COUNT; Value: 4.92; Range: 4.30-6.10; Units: M/mm3; Status: F Test: HEMOGLOBIN; Value: 14.0; Range: 14.0-18.0; Units: g/dl; Status: F Test: HEMATOCRIT; Value: 41.6; Range: 42.0-52.0; Abnormal: Below low normal; Units: %; Status: F Test: MEAN CORPUSCULAR VOLUME; Value: 84.6; Range: 80.0-96.0; Units: fl; Status: F Test: MEAN CORPUSCULAR HEMOGLOBIN; Value: 28.5; Range: 27.0-33.0; Units: pg; Status: F Test: MEAN CORPUSCULAR HGB CONC; Value: 33.7; Range: 32.0-36.5; Units: g/dl; Status: F Test: RED CELL DISTRIBUTION WIDTH; Value: 12.9; Range: 11.5-14.5; Units: %; Status: F Test: PLATELET COUNT, AUTOMATED; Value: 193; Range: 150-450; Units: k/mm3; Status: F Test: NEUTROPHILS %; Value: 55.5; Range: 36.0-66.0; Units: %; Status: F Test: LYMPH %; Value: 34.7; Range: 24.0-44.0; Units: %; Status: F Test: MONO %; Value: 5.4; Range: 0.0-5.0; Abnormal: Above high normal; Units: %; Status: F Test: EOS %; Value: 1.6; Range: 0.0-3.0; Units: %; Status: F Test: BASO %; Value: 1.1; Range: 0.0-1.0; Abnormal: Above high normal; Units: %; Status: F Test: LARGE UNSTAINED CELL %; Value: 1.6; Range: 0.0-4.0; Units: %; Status: F Test: NEUTROPHILS #; Value: 4.2; Range: 1.8-7.7; Units: K/mm3; Status: F Test: LYMPH #; Value: 2.7; Range: 1.5-4.5; Units: K/mm3; Status: F Test: MONO #; Value: 0.4; Range: 0.0-0.8; Units: K/mm3; Status: F Test: EOS #; Value: 0.1; Range: 0.0-0.50; Units: K/mm3; Status: F Test: BASO #; Value: 0.1; Range: 0.0-0.2; Units: K/mm3; Status: F Test: LARGE UNSTAINED CELL #; Value: 0.1; Range: 0.0-0.4; Units: K/mm3; Status: F Lab Order: HEMOGLOBIN A1C; [facility] 11/03/16 16:02 Test: HEMOGLOBIN A1c; Value: 9.4; Range: 4.5-6.2; Abnormal: Above high normal; Units: %; Status: F Test: ESTIMATED AVERAGE GLUCOSE; Value: 223; Range: 60-110; Abnormal: Above high normal; Units: MG/DL; Status: F Lab Order: Fingerstick Blood Sugar; [facility] 11/03/16 14:50 Test: BEDSIDE GLUCOSE; Value: 41; Range: 70-105; Abnormal: Below low normal; Units: MG/DL; Status: F Lab Order: Fingerstick Blood Sugar; [facility] 11/03/16 15:15 Test: BEDSIDE GLUCOSE; Value: 82; Range: 70-105; Units: MG/DL; Status: F Radiology Order: CT ABD & PELVIS: IV Contrast Only Test: CT ABD & PELVIS: IV Contrast Only REASON FOR EXAMINATION: LUQ pain; ; CLINICAL HISTORY: Abdominal pain.; TECHNIQUE: Multiple axial, sagittal and coronal CT images were obtained through the abdomen and pelvi; s after administration of intravenous contrast material.; COMMENTS:; The liver is of uniform attenuation without mass or defect.; There is no intra or extrahepatic biliary ductal dilatation. Well defined hypodense lesion of the spl; een.; The gallbladder contains gallstones. 5.9 cm peripherally calcified pancreatic tail cyst.; There is no evidence of adrenal mass.; 2.3 cm cyst of the right kidney.; Both kidneys demonstrate prompt and equal nephrograms. There is no evidence of renal or ureteral mass; . No renal or ureteral calculi are identified. There is no hydroureter or hydronephrosis.; No evidence for appendicitis. There is no bowel wall thickening. No evidence for small or large karson; l obstruction. There is no evidence of abdominal ascites or lymphadenopathy. Fluid-filled mildly dila; aylin small bowel.; There is no evidence of intrinsic or extrinsic bladder mass. There is no pelvic ascites or lymphadeno; pita.; Fecal stasis in the large bowels.; Images of the lung bases show no evidence of pleural or parenchymal mass. There are no pleural effusi; ons.; The bony structures are free of lytic or blastic lesions. Multilevel degenerative changes are seen in; volving the thoracolumbar spine. Scattered calcifications are seen involving the aorta and major bran; ches compatible with atherosclerosis.; IMPRESSION:; Cholelithiasis.; Simple cyst of the right kidney.; Well defined hypodense lesion of the spleen.; Peripherally calcified pancreatic tail cyst.; Large bowel fecal stasis.; Fluid-filled mildly dilated small bowel. Ileus versus developing partial small bowel obstruction.; Thank you for your kind referral of this patient.; ; Radiology Order: Chest, 2 view PA, Lat Test: Chest, 2 view PA, Lat REASON FOR EXAMINATION: acute respiratory distress; Chest x-ray: Two views.; ; History: Acute respiratory distress .; ; Comparison study: February 22, 2016 .; ; Findings: The lungs are well inflated and free of infiltrate. The pleural; angles are sharp. The heart size is normal. Pulmonary vasculature is not; increased. No significant bony abnormality is seen. The previously noted; peripherally calcified left upper quadrant lesion is just barely visible on PA; chest radiograph. This is unchanged from February 22, 2016. This is seen on today's; CT.; ; Impression:; ; Peripherally calcified lesion in the left upper quadrant of the abdomen,; otherwise negative chest x-ray.; ; ; Signed by; Galdino Wilcox MD 11/03/2016 08:26 A; Outcome: 03:00 CT Study completed. ko2 05:16 Decision to Hospitalize by Provider. mm11 16:33 Patient left the ED. ar3 Signatures: Dispatcher [employer] EDMS Cynthia Head, RN ANTONIO Hoffmann, Jailene Walker, RN RN malcom Ruiz, Crbeth, Airconditioning Engineer Unit ml3 Yola Cooley,RN RN liz3 Man Shirley, DO DO mm11 Alesha Gonzales, BLACKJACK SUPERVISOR BLACKJACK SUPERVISOR ar3 Barby Soriano, BLACKJACK SUPERVISOR BLACKJACK SUPERVISOR ct3 Mary Sepulveda,RN RN js13 Chey Mcintyre,RN RN beatriz2 Ping Voss ys2 Shobha Olsen, Reg Reg hs2 Jelly Hayes Jose, BLACKJACK SUPERVISOR BLACKJACK SUPERVISOR jmv Jailene العراقي MTDD
[2016-11-03 16:40] LABS: ALBUMIN 3.6 GM/DL (3.2-5.2); ALBUMIN/GLOBULIN RATIO 1.09 (1.00-1.93); ALKALINE PHOSPHATASE 100 U/L (45-117); ALT/SGPT 13 U/L (12-78); ANION GAP 8 MEQ/L (8-16); AST/SGOT 10 U/L (15-37); BILIRUBIN,TOTAL 0.5 MG/DL (0.2-1.0); BLOOD UREA NITROGEN 12 MG/DL (7-18); CARBON DIOXIDE LEVEL 28 MEQ/L (21-32); CHLORIDE LEVEL 109 MEQ/L (98-107); CREATININE FOR GFR 0.88 MG/DL (0.70-1.30); GLOMERULAR FILTRATION RATE > 60.0 (>60); GLUCOSE, FASTING 77 MG/DL (70-105); MAGNESIUM LEVEL 1.8 MG/DL (1.8-2.4); PHOSPHORUS LEVEL 3.3 MG/DL (2.5-4.9); POTASSIUM SERUM 3.8 MEQ/L (3.5-5.1); SODIUM LEVEL 145 MEQ/L (136-145); TOTAL PROTEIN 6.9 GM/DL (6.4-8.2)
[2016-11-03] MEDS: NORTRIPTYLINE 25 MG CAP PO SCH (20:48)
[2016-11-03] MEDS: LEVEMIR (INSULIN DETEMIR) 1 UNITS/0.01ML SC SCH (20:48)
[2016-11-03] MEDS: MORPHINE 4 MG/ML 1ML SYRINGE IV PRN (20:49)
[2016-11-03 21:03] VITALS: BP 103/67
[2016-11-03 23:59] VITALS: BP 118/76
[2016-11-04] MEDS: MORPHINE 4 MG/ML 1ML SYRINGE IV PRN ×5 (02:13→20:44)
[2016-11-04 05:34] LABS: BASO % 0.4 % (0.0-1.0); EOS # 0.1 K/mm3 (0.0-0.50); EOS % 1.9 % (0.0-3.0); LARGE UNSTAINED CELL # 0.1 K/mm3 (0.0-0.4); LARGE UNSTAINED CELL % 2.3 % (0.0-4.0); LYMPH # 2.2 K/mm3 (1.5-4.5); LYMPH % 43.6 % (24.0-44.0); MEAN CORPUSCULAR HEMOGLOBIN 28.2 pg (27.0-33.0); MEAN CORPUSCULAR HGB CONC 33.5 g/dl (32.0-36.5); MEAN CORPUSCULAR VOLUME 84.3 fl (80.0-96.0); MONO # 0.2 K/mm3 (0.0-0.8); MONO % 3.3 % (0.0-5.0); NEUTROPHILS # 2.5 K/mm3 (1.8-7.7); NEUTROPHILS % 48.5 % (36.0-66.0); PLATELET COUNT, AUTOMATED 163 k/mm3 (150-450); WHITE BLOOD COUNT 5.1 K/mm3 (4.0-10.0)
[2016-11-04 05:45] LABS: ANION GAP 8 MEQ/L (8-16); BLOOD UREA NITROGEN 10 MG/DL (7-18); CALCIUM LEVEL 8.3 MG/DL (8.5-10.1); CARBON DIOXIDE LEVEL 29 MEQ/L (21-32); CHLORIDE LEVEL 109 MEQ/L (98-107); CREATININE FOR GFR 0.79 MG/DL (0.70-1.30); GLOMERULAR FILTRATION RATE > 60.0 (>60); GLUCOSE, FASTING 54 MG/DL (70-105); POTASSIUM SERUM 3.4 MEQ/L (3.5-5.1); SODIUM LEVEL 146 MEQ/L (136-145)
[2016-11-04] MEDS: HEPARIN SOD (PORCINE) 5000 UNITS/ML VIAL SC SCH ×3 (05:49→20:42)
[2016-11-04 05:50] VITALS: BP 118/74
[2016-11-04] MEDS ORDERED: POTASSIUM CHLORIDE 10 MEQ SR TABLET PO ONE (07:15)
[2016-11-04] MEDS: HumaLOG INSULIN (NovoLOG) PER UNIT SC SCH ×4 (07:30→20:44)
[2016-11-04 08:00] VITALS: BP 102/64
[2016-11-04] MEDS: OMEPRAZOLE 20 MG CAP PO SCH (09:11)
[2016-11-04] MEDS: NICOTINE 14 MG/24 HR TRANSDERMAL TD SCH (09:12)
[2016-11-04 12:17] VITALS: BP 115/80
--- NOTE | 2016-11-04 12:29 | REP ---
Gastric emptying nuclear scintigraphy: History: Nausea and vomiting. Longstanding diabetes. Technique: 1.0 mCi of technetium-99m sulfur colloid was ingested in two scrambled eggs and 6 ounces of water and sequential anterior and posterior images are acquired for an 89-minute imaging observation period. Regions of interest are drawn around the stomach to plot gastric emptying. Scintigraphic findings: Expected T1/2 is 90 minutes. 0% % emptying is observed in this patient during the 89-minute imaging observation period. Impression: Markedly delayed gastric emptying. No observable gastric emptying during the 89-minute observation. Signed by Galdino Wilcox MD 11/04/2016 12:21 P
--- NOTE | 2016-11-04 14:55 | IPNPDOC ---
Text Note Date of Service The patient was seen on 11/04/16 at 14:31. NOTE Subjective: Patient is a 45 year old male with a PMHx of IDDM, History of pancreatitis, HTN, Hx of gallstones, and Hx of pancreatic pseudocysts who presented to the ER with abdominal pain in Left upper quadrant, associated with vomiting and diarrhea. In the ER patient received IV fluid hydration and was found to have an elevated glucose level, was started on insulin drip briefly. His glucose levels rapidly declined and insulin drip was discontinued. He was changed to D51/2 NS at 150 and his glucose begin to elevate. All fluids and insulin drips were discontinue and his glucose levels normalized. Patient was seen and examined at the bedside. Clinically he notes some abdominal discomfort. Has not had any more diarrhea or vomiting. Still complaints of nausea. Objective: Vitals (See below) General: Lying in bed, no acute distress, comfortable, AAOx3 HEENT: NC, AT CVS: RRR, +S1S2 Lungs: Fair air entry b/l, -w/r/r Abdomen: Soft, ND, Mild tenderness at left upper quadrant, +BSx4 Extremities: +PPx4, -Edema, - calf tenderness Assessment and plan: 1. Abdominal pain and nausea - likely 2/2 diabetic gastroparesis, possibly 2/2 gastroenteritis - Reports improvement in abdominal pain, no more vomiting or diarrhea, still reports nausea - Physical with some left upper quadrant tenderness - No significant lab abnormalities - CT abdomen / pelvis 11/03: possible SBO or ileus - Gastric emptying study is positive - shows significant delayed emptying - Has been on clear liquid diet; will advance as tolerated - Will require frequent small meals 4-5x daily, and avoid large meals (avoid fatty, acidic, spicy and high roughage based foods) - c/w Reglan - will increase frequency and give with meals 2. Uncontrolled IDDM - HbA1c of 9.4 - Will send continue with insulin sliding scale and levemir - will increase dose of levemir as required 3. Hx of pancreatitis - no elevation in lipase / amylase at this time - no CT evidence of pancreatitis; only peripherally calcified pancreatic tail cyst 4. Acute kidney injury - likely 2/2 pre-renal etiology from nausea and vomiting - Cr normalized 5. Normocytic anemia - Hg stable - Will continue to monitor 6. Hypokalemia - s/p repletion 7. HTN - BP has been well controlled without medications - will continue to hold 8. Tobacco dependence 9. Diabetic neuropathy - c/w nortriptyline 10. DVT prophylaxis - c/w Heparin VS,Fishbone, I+O VS, Fishbone, I+O Laboratory Tests 11/03/16 16:02 Calcium Level 9.0, Phosphorus Level 3.3, Aspartate Amino Transf (AST/SGOT) 10 L , Alanine Aminotransferase (ALT/SGPT) 13, Alkaline Phosphatase 100, Total Bilirubin 0.5 #, Total Protein 6.9, Albumin 3.6 11/04/16 05:13 Calcium Level 8.3 L, Red Blood Count 4.43, Mean Corpuscular Volume 84.3, Mean Corpuscular Hemoglobin 28.2, Mean Corpuscular Hemoglobin Concent 33.5, Red Cell Distribution Width 12.0, Neutrophils (%) (Auto) 48.5, Lymphocytes (%) (Auto) 43.6, Monocytes (%) (Auto) 3.3, Eosinophils (%) (Auto) 1.9, Basophils (%) (Auto ) 0.4, Neutrophils # (Auto) 2.5, Lymphocytes # (Auto) 2.2, Monocytes # (Auto) 0.2, Eosinophils # (Auto) 0.1, Basophils # (Auto) 0.0 Vital Signs Date Time Temp Pulse Resp B/P Pulse Ox O2 Delivery O2 Flow Rate FiO2 11/04/16 12:17 96.4 84 18 115/80 100 Room Air I&O- Last 24 Hours up to 6 AM 11/04/16 06:00 Intake Total 2680 ml Output Total 2100 ml Balance 580 ml MARCIO VALENZUELA MD Nov 04, 2016 14:35
[2016-11-04 16:00] VITALS: BP 124/76
[2016-11-04] MEDS: METOCLOPRAMIDE INJ 10MG/2ML VIAL (J2765) IV SCH (16:52)
[2016-11-04 20:00] VITALS: BP 110/74
[2016-11-04] MEDS: NORTRIPTYLINE 25 MG CAP PO SCH (20:43)
[2016-11-04] MEDS: LEVEMIR (INSULIN DETEMIR) 1 UNITS/0.01ML SC SCH (20:43)
[2016-11-05] VITALS: BP 108/78
[2016-11-05] MEDS: MORPHINE 4 MG/ML 1ML SYRINGE IV PRN ×6 (01:17→21:57)
[2016-11-05 04:00] VITALS: BP 110/74
[2016-11-05] MEDS: HEPARIN SOD (PORCINE) 5000 UNITS/ML VIAL SC SCH ×3 (05:40→21:56)
[2016-11-05 06:02] LABS: BASO % 0.8 % (0.0-1.0); EOS # 0.2 K/mm3 (0.0-0.50); EOS % 4.7 % (0.0-3.0); LARGE UNSTAINED CELL # 0.1 K/mm3 (0.0-0.4); LARGE UNSTAINED CELL % 3.6 % (0.0-4.0); LYMPH # 1.6 K/mm3 (1.5-4.5); LYMPH % 53.4 % (24.0-44.0); MEAN CORPUSCULAR HEMOGLOBIN 28.8 pg (27.0-33.0); MEAN CORPUSCULAR HGB CONC 33.7 g/dl (32.0-36.5); MEAN CORPUSCULAR VOLUME 85.3 fl (80.0-96.0); MONO # 0.1 K/mm3 (0.0-0.8); MONO % 3.8 % (0.0-5.0); NEUTROPHILS % 33.7 % (36.0-66.0); PLATELET COUNT, AUTOMATED 158 k/mm3 (150-450); RED CELL DISTRIBUTION WIDTH 11.8 % (11.5-14.5); WHITE BLOOD COUNT 3.1 K/mm3 (4.0-10.0)
[2016-11-05 06:26] LABS: ANION GAP 7 MEQ/L (8-16); BLOOD UREA NITROGEN 6 MG/DL (7-18); CALCIUM LEVEL 8.2 MG/DL (8.5-10.1); CARBON DIOXIDE LEVEL 29 MEQ/L (21-32); CHLORIDE LEVEL 104 MEQ/L (98-107); CREATININE FOR GFR 0.84 MG/DL (0.70-1.30); GLOMERULAR FILTRATION RATE > 60.0 (>60); GLUCOSE, FASTING 213 MG/DL (70-105); POTASSIUM SERUM 3.4 MEQ/L (3.5-5.1); SODIUM LEVEL 140 MEQ/L (136-145)
[2016-11-05 08:00] VITALS: BP 115/69
[2016-11-05] MEDS: METOCLOPRAMIDE INJ 10MG/2ML VIAL (J2765) IV SCH ×3 (08:03→16:56)
[2016-11-05] MEDS: HumaLOG INSULIN (NovoLOG) PER UNIT SC SCH ×4 (08:05→21:00)
[2016-11-05] MEDS: OMEPRAZOLE 20 MG CAP PO SCH (08:05)
[2016-11-05] MEDS: NICOTINE 14 MG/24 HR TRANSDERMAL TD SCH (08:06)
[2016-11-05] MEDS ORDERED: POTASSIUM CHLORIDE 10 MEQ SR TABLET PO ONE (08:30)
[2016-11-05 11:58] VITALS: BP 118/73
[2016-11-05 14:33] LABS: ANION GAP 7 MEQ/L (8-16); BLOOD UREA NITROGEN 5 MG/DL (7-18); CALCIUM LEVEL 8.2 MG/DL (8.5-10.1); CARBON DIOXIDE LEVEL 28 MEQ/L (21-32); CHLORIDE LEVEL 106 MEQ/L (98-107); CREATININE FOR GFR 0.97 MG/DL (0.70-1.30); GLOMERULAR FILTRATION RATE > 60.0 (>60); GLUCOSE, FASTING 257 MG/DL (70-105); MAGNESIUM LEVEL 1.5 MG/DL (1.8-2.4); POTASSIUM SERUM 4.2 MEQ/L (3.5-5.1); SODIUM LEVEL 141 MEQ/L (136-145)
--- NOTE | 2016-11-05 15:29 | IPNPDOC ---
Text Note Date of Service The patient was seen on 11/05/16 at 15:19. NOTE Subjective: Patient states his abdominal pain significantly improved. He did have a few episodes of diarrhea. Objective: Vitals: (see below) General: No acute distress, laying comfortably in bed. HEENT: Moist mucous membranes. Neck: No JVD or lymphadenopathy Cardiac: RRR, No murmurs Pulm: Clear to auscultation b/l. No wheezing, rhonchi Abd: NT/ND + BS Ext: No edema or cyanosis Labs (see below) Images: CT abdomen/pelvis on 11/03/16 IMPRESSION: Cholelithiasis. Simple cyst of the right kidney. Well defined hypodense lesion of the spleen. Peripherally calcified pancreatic tail cyst. Large bowel fecal stasis. Fluid-filled mildly dilated small bowel. Ileus versus developing partial small bowel obstruction. Chest x-ray on 11/03/16 Impression: Peripherally calcified lesion in the left upper quadrant of the abdomen, otherwise negative chest x-ray. Gastric emptying study 11/04/16 Impression: Markedly delayed gastric emptying. No observable gastric emptying during the 89-minute observation. Assessment/Plan 1. Status post HHNK, off of insulin drip, on Levemir. Sliding scale insulin. It appears the patient's has features consistent with delayed gastric emptying. Patient likely has gastroparesis from his uncontrolled diabetes. He was started on Reglan, however he's starting to have a few episodes of diarrhea. We will decrease dose of the Reglan. Patient was started on clear diet which is been advanced to full liquids. Will obtain an obstructive series in the a.m. Given the CT findings with SBO versus ileus. 2. Nonsustained V. tach- patient had an episode of 3 beats followed by 4 beats of nonsustained V. tach on 11/04/16. Magnesium and potassium have been replaced. Echocardiogram pending. No recurrent episodes since then. No chest pain/ palpitations. 2. History of pancreatitis, with drainage of a pancreatic pseudocyst 3. MARISELA- resolved, likely secondary to the above 4. Normocytic anemia- stable, continue to monitor hemoglobin 5. Hypertension- controlled without his home meds. 6. Diabetic neuropathy- continue nortriptyline 7. Tobacco dependence- cessation counseling DVT prophy: Heparin subcutaneous VS,Fishbone, I+O VS, Fishbone, I+O Laboratory Tests 11/05/16 05:25 Calcium Level 8.2 L, Red Blood Count 4.26 L, Mean Corpuscular Volume 85.3, Mean Corpuscular Hemoglobin 28.8, Mean Corpuscular Hemoglobin Concent 33.7, Red Cell Distribution Width 11.8, Neutrophils (%) (Auto) 33.7 L, Lymphocytes (%) (Auto) 53.4 H, Monocytes (%) (Auto) 3.8, Eosinophils (%) (Auto) 4.7 H, Basophils (%) ( Auto) 0.8, Neutrophils # (Auto) 1.0 L, Lymphocytes # (Auto) 1.6, Monocytes # ( Auto) 0.1, Eosinophils # (Auto) 0.2, Basophils # (Auto) 0.0 11/05/16 13:42 Calcium Level 8.2 L Vital Signs Date Time Temp Pulse Resp B/P Pulse Ox O2 Delivery O2 Flow Rate FiO2 11/05/16 13:46 18 11/05/16 11:58 96.0 83 118/73 99 Room Air I&O- Last 24 Hours up to 6 AM 11/05/16 06:00 Intake Total 2690 ml Output Total 1650 ml Balance 1040 ml SOFIA VIRGEN MD Nov 05, 2016 15:29
[2016-11-05] MEDS: MAG SULF 1GM/100ML (MAG RUN) 1 GM in APPROPRIATE DILUENT 1 EA IV SCH ×2 (15:48→16:59)
[2016-11-05 16:00] VITALS: BP 127/75
--- NOTE | 2016-11-05 17:35 | EDDOCDS ---
Physician Documentation [facility] Name: Poppy Baptiste Age: 45 yrs Sex: Male : 1970 Arrival Date: 11/03/2016 Time: 00:48 Bed Admit Hold Private MD: NO PRIMARY PHYSICIAN, . Disposition: 11/03/16 05:16 Hospitalization ordered by Ping Voss for Inpatient Admission. Preliminary diagnosis is Diabetes mellitus due to underlying condition with hyperosmolarity. - Bed requested for PCU. - Status is Inpatient Admission. ar3 - Condition is Stable. - Problem is an acute exacerbation. - Symptoms have improved. Historical: - Allergies: tylenolhives; Aspirinhives; - Home Meds: 1. Humalog 100 unit/mL Sub-Q soln 22 unit three times a day (Last dose: 11/02/2016 08:00) 2. Lantus 100 unit/mL Sub-Q soln 30 unit nightly (Last dose: 11/01/2016 21:00) 3. metformin 500 mg oral tab 4. omeprazole 40 mg Oral cpDR 1 cap once daily (Last dose: 11/02/2016) 5. 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 Patient uses No barriers to communication noted, The patient speaks fluent Ghanaian, Speaks appropriately for age. - Family history: Not pertinent. - : The pt / caregiver states he / she is not on anticoagulants. Home medication list is obtained from the patient. - Exposure Risk Screening:: None identified. Vital Signs: 11/03 00:59 BP 127 / 88; Pulse 94; Resp 20; Temp 97(O); Pulse Ox 100% on R/A; Weight 87.09 kg / 192 jmv lbs (R); Height 5 ft. 11 in. (180.34 cm) (R); Pain 8/10; 01:00 BP 132 / 90 (auto/); ko2 01:00 Pulse Ox 100% ; ko2 01:15 BP 124 / 79 (auto/); ko2 01:15 Pulse Ox 99% ; ko2 01:29 Pulse Ox 98% ; ko2 01:30 BP 121 / 86 (auto/); ko2 01:45 BP 116 / 86 (auto/); ko2 01:45 Pulse Ox 99% ; ko2 02:00 Pulse Ox 98% ; ko2 02:00 BP 116 / 81 (auto/); ko2 02:05 Pulse Ox 98% ; ko2 02:15 BP 117 / 87 (auto/); ko2 02:30 BP 111 / 80 (auto/); ko2 02:30 Pulse Ox 99% ; ko2 02:44 Pulse Ox 100% ; ko2 02:45 BP 108 / 71 (auto/); ko2 03:00 BP 124 / 81 (auto/); ko2 03:00 Pulse Ox 99% ; ko2 03:15 BP 120 / 79 (auto/); ko2 03:15 Pulse Ox 99% ; ko2 03:29 Pulse Ox 98% ; ko2 03:30 BP 114 / 80 (auto/); ko2 03:45 Pulse Ox 97% ; ko2 03:45 BP 110 / 79 (auto/); ko2 04:00 BP 119 / 87 (auto/); ko2 04:00 Pulse Ox 98% ; ko2 04:15 BP 111 / 78 (auto/); ko2 04:15 Pulse Ox 99% ; ko2 04:45 BP 111 / 68 (auto/); ko2 04:45 Pulse Ox 98% ; ko2 05:00 BP 105 / 69 (auto/); ko2 05:00 Pulse Ox 99% ; ko2 05:15 BP 107 / 73 (auto/); ko2 05:15 Pulse Ox 98% ; ko2 05:30 BP 103 / 73 (auto/); ko2 05:30 Pulse Ox 98% ; ko2 05:44 Pulse Ox 97% ; ko2 05:45 BP 101 / 70 (auto/); ko2 06:00 BP 96 / 66 (auto/); ko2 06:00 Pulse Ox 98% ; ko2 06:15 BP 102 / 66 (auto/); ko2 06:15 Pulse Ox 97% ; ko2 07:18 BP 93 / 64 (auto/); kr3 07:27 Pulse 82 MON; Resp 16; Temp 97.1(O); Pulse Ox 99% ; kr3 08:15 BP 105 / 61 (auto/); kr3 08:15 Pulse Ox 100% ; kr3 00:59 Body Mass Index 26.78 (87.09 kg, 180.34 cm) jmv MDM: 01:49 NS 0.9% 1000 ml IV at bolus once ordered. mm11 01:49 Ondansetron 4 mg IVP once ordered. mm11 01:49 morphine 4 mg IVP every 30 minutes; Document pain score/vitals after each dose (Hold if mm11 SBP < 90mmHg) x2 ordered. 01:49 IV Saline Lock ordered. mm11 01:49 Undress patient appropriately for examination ordered. mm11 01:50 Amylase Ordered. EDMS 01:50 Basic Metabolic Profile Ordered. EDMS 01:50 CBC with Diff Ordered. EDMS 01:50 Lipase Ordered. EDMS 01:50 Liver Profile Ordered. EDMS 01:50 Urinalysis Ordered. EDMS 01:50 Urine Culture Ordered. EDMS 01:50 Venous Blood Gas (large pea green tube on ice) Ordered. EDMS 01:50 Osmolality, Serum Ordered. EDMS 02:23 CBC with Diff Reviewed. mm11 02:23 Urinalysis Reviewed. mm11 02:23 Venous Blood Gas (large pea green tube on ice) Reviewed. mm11 02:23 Osmolality, Serum Reviewed. mm11 02:24 Basic Metabolic Profile Reviewed. mm11 02:24 Liver Profile Reviewed. mm11 02:24 Amylase Reviewed. mm11 02:24 Lipase Reviewed. mm11 02:33 CT ABD & PELVIS: IV Contrast Only Ordered. EDMS 03:43 Insulin Regular Human (0.1 units/kg) 9 units IVP once ordered. mm11 03:43 Insulin Regular Human Infusion (0.1units/kg/hr) 9 units/hr IV at calculated rate Per mm11 protocol ordered. 03:44 BED REQUEST+ADM ordered. EDMS 04:56 Financial registration complete. hs2 05:07 Fingerstick Blood Sugar Ordered. EDMS 05:10 Admission / Observation Status ordered. EDMS 05:18 MAGNESIUM LEVEL Ordered. EDMS 05:18 BASIC METABOLIC PROFILE Ordered. EDMS 05:18 BASIC METABOLIC PROFILE Ordered. EDMS 05:19 BASIC METABOLIC PROFILE Ordered. EDMS 05:19 BASIC METABOLIC PROFILE Ordered. EDMS 05:19 BASIC METABOLIC PROFILE Ordered. EDMS 05:19 CARDIAC MARKER PANEL Ordered. EDMS 05:19 SPUTUM CULTURE AND GRAM STAIN Ordered. EDMS 05:19 BLOOD CULTURES Ordered. EDMS 05:19 GASTROINTESTINAL (GI) PANEL Ordered. EDMS 05:20 Chest, 2 view PA, Lat Ordered. EDMS 05:20 ELECTROCARDIOGRAM ADULT ordered. EDMS 05:21 CBC WITH DIFFERENTIAL Ordered. EDMS 05:24 Levemir - Insulin Detemir 100 unit/mL 30 units Sub-Q once ordered. mm11 05:30 [facility] Payment Agreement was scanned into [employer] and attached to record. hs2 06:17 BLOOD CULTURES Ordered. EDMS 07:49 T-Sheet-- Draft Copy was scanned into [employer] and attached to record. seh 10:08 NPO DIET ordered. EDMS 13:39 NM-Gastric Emptying Study Ordered. EDMS 13:42 COMPLETE COMPHRENSIVE METABOLI Ordered. EDMS 13:42 MAGNESIUM LEVEL Ordered. EDMS 13:42 PHOSPHOROUS LEVEL Ordered. EDMS 13:42 HEMOGLOBIN A1C Ordered. EDMS 14:59 Fingerstick Blood Sugar Ordered. EDMS Point of Care Testing: Blood Glucose: 05:06 Blood Glucose: 281 mg/dL; ko2 Ranges: Administered Medications: 02:11 Drug: NS 0.9% 1000 ml [sodium chloride 0.9 % intravenous solution] Route: IV; Rate: ko2 bolus; Site: left antecubital; 03:04 Follow up: IV Status: Completed infusion; IV Intake: 1000ml ko2 02:11 Drug: Ondansetron 4 mg [ondansetron HCl 2 mg/mL intravenous solution (2 mL)] Route: ko2 IVP; Site: left antecubital; 04:06 Follow up: Response: Nausea is resolved ko2 02:11 Drug: morphine 4 mg [morphine 4 mg/mL intravenous cartridge (1 mL)] Route: IVP; Site: ko2 left antecubital; 03:09 Drug: morphine 4 mg [morphine 4 mg/mL intravenous cartridge (1 mL)] Route: IVP; Site: ko2 left antecubital; 04:00 Drug: Insulin Regular Human (0.1 units/kg) 9 units [insulin regular human 100 unit/mL ko2 injection solution (0.09 mL)] {Co-Signature: malcom (Jailene Hoffmann RN).} Route: IVP; Site: left antecubital; 04:00 Drug: Insulin Regular Human Infusion (0.1units/kg/hr) 9 units/hr [insulin regular human ko2 100 unit/mL injection solution] {Co-Signature: malcom (Jailene Hoffmann RN).} Route: IV; Rate: calculated rate; Site: left antecubital; 05:37 Drug: Levemir - Insulin Detemir 30 units [insulin detemir 100 unit/mL subcutaneous ko2 solution (0.3 mL)] {Co-Signature: malcom (Jailene Hoffmann RN).} Route: Sub-Q; Site: left upper arm; Signatures: Dispatcher [employer] EDMS Man Shirley, DO DO mm11 Alesha Gonzales, DIRECTOR OF FAMILY SERVICE CENTER DIRECTOR OF FAMILY SERVICE CENTER ar3 Chey Mcintyre,ANTONIO RN ko2 Shobha Olsen, Reg Reg hs2 Abigail Jelly [facility] Jailene العراقي The chart was reviewed and I authenticate all verbal orders and agree with the evaluation and treatment provided.Corrections: (The following items were deleted from the chart) 05:19 05:19 GASTROINTESTINAL (GI) PANEL ordered. EDMS EDMS 05:19 05:19 GASTROINTESTINAL (GI) PANEL ordered. EDMS EDMS 05:59 05:10 CONSISTENT CARBOHYDRATES ordered. EDMS EDMS 06:04 05:19 URINE CULTURE ordered. EDMS EDMS 07:32 01:50 NOTHING BY MOUTH+DIET ordered. EDMS EDMS 07:32 05:59 NPO DIET ordered. EDMS EDMS 10:08 07:32 CLEAR LIQUIDS DIET ordered. EDMS EDMS 13:43 13:39 HEMOGLOBIN A1C ordered. EDMS EDMS Attachments: 05:30 [facility] Payment Agreement hs2 07:49 T-Sheet-- Draft Copy [facility] Chart Complete MTDD
--- NOTE | 2016-11-05 17:35 | EDDOCDS ---
Nurse's Notes [facility] Name: Poppy Baptiste Age: 45 yrs Sex: Male : 1970 Arrival Date: 11/03/2016 Time: 00:48 Bed Admit Hold Private MD: NO PRIMARY PHYSICIAN, . Diagnosis: Diabetes mellitus due to underlying condition with hyperosmolarity Presentation: 11/03 00:54 Presenting complaint: EMS states: nausea/vomiting/diarrhea that started earlier today, ko2 slight painful urination. Productive cough for a couple days. Dizziness and weakness. Suicide/Homicide risk assessment- the patient denies having any suicidal and/or homicidal ideations and does not present with any other emotional, behavioral or mental health complaints. Status: Patient is not a director of consulting services or dependent. Transition of care: patient was not received from another setting of care. Care prior to arrival: See EMS report. Saline lock initiated. Glucose check. 592. 00:54 Acuity: FRANCESCO Level 3 ko2 00:54 Method Of Arrival: Ambulance ko2 02:12 Adult Sepsis Screening: The patient does not have new or worsening altered mentation. ko2 Patient's respiratory rate is less than 22. Systolic blood pressure is greater than 100. Patient has a qSOFA score of 0- Negative Sepsis Screen. Triage Assessment: 01:05 General: Appears in no apparent distress, Behavior is appropriate for age, cooperative. ko2 Pain: Location: posterior aspect of right lateral abdomen and left upper quadrant Pain currently is 8 out of 10 on a pain scale. HIV screening NA for this visit Offered previously. Neurological: No deficits noted. Respiratory: Airway is patent Respiratory effort is even, unlabored. GI: Abdomen is non- distended Bowel sounds present X 4 quads. Derm: Skin is normal. Musculoskeletal: Range of motion intact in all extremities. Historical: - Allergies: tylenolhives; Aspirinhives; - Home Meds: 1. Humalog 100 unit/mL Sub-Q soln 22 unit three times a day (Last dose: 11/02/2016 08:00) 2. Lantus 100 unit/mL Sub-Q soln 30 unit nightly (Last dose: 11/01/2016 21:00) 3. metformin 500 mg oral tab 4. omeprazole 40 mg Oral cpDR 1 cap once daily (Last dose: 11/02/2016) 5. 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 Patient uses No barriers to communication noted, The patient speaks fluent Kyrgyz, Speaks appropriately for age. - Family history: Not pertinent. - : The pt / caregiver states he / she is not on anticoagulants. Home medication list is obtained from the patient. - Exposure Risk Screening:: None identified. Screenin:06 Screening information is obtained from the patient. Fall risk: No risks identified. ko2 Assistance ADL's: requires no assistance with activities of daily living. Abuse/DV Screen: The patient / caregiver reports he/she is: not in a situation that causes fear, pain or injury. Nutritional screening: No deficits noted. Advance Directives: Currently, there is no health care proxy. home support is adequate. Assessment: 01:06 General: See triage assessment. ko2 02:12 General: Appears comfortable, Behavior is appropriate for age, cooperative. Pain: ko2 Location: left upper quadrant and posterior aspect of right lateral abdomen Pain currently is 8 out of 10 on a pain scale. Neurological: Level of Consciousness is awake, alert. Respiratory: Airway is patent Respiratory effort is even, unlabored. GI: Abd is soft. Derm: Skin is normal. 02:59 General: Appears in no apparent distress, Behavior is cooperative. Pain: Location: left ko2 upper quadrant and posterior aspect of right lateral abdomen Pain currently is 5 out of 10 on a pain scale. Neurological: Level of Consciousness is awake, alert. Respiratory: Airway is patent Respiratory effort is even, unlabored. Derm: Skin is normal. 04:13 General: Appears in no apparent distress, comfortable, Behavior is appropriate for age, ko2 cooperative. Pain: Location: left upper quadrant and posterior aspect of right lateral abdomen. Neurological: Level of Consciousness is awake, alert. Respiratory: Airway is patent Respiratory effort is even, unlabored. Derm: Skin is normal. 05:05 General: Appears in no apparent distress, comfortable, Behavior is appropriate for age, ko2 cooperative. Pain: Location: left upper quadrant and posterior aspect of right lateral abdomen. Neurological: Level of Consciousness is awake, alert. Respiratory: Airway is patent Respiratory effort is even, unlabored. Derm: Skin is normal. 06:29 General: Appears in no apparent distress, comfortable, Behavior is appropriate for age, ko2 cooperative. Neurological: Level of Consciousness is awake, alert. Respiratory: Airway is patent Respiratory effort is even, unlabored. Derm: Skin is normal. 07:31 Reassessment: patient complains of nausea and abdominal discomfort. Patient had eaten kr3 eggs and 3/4 of muffin and OJ on breakfast tray. Per admission orders meal was cancelled and patient was suppose to be NPO. Provider notified that meal was given. [place] nurse aware of situation and will monitor patient. Cardiovascular: Rhythm is sinus rhythm No ectopy. 08:55 Reassessment: Patient appears in no apparent distress at this time. Cardiovascular: kr3 Rhythm is sinus rhythm No ectopy. GI: other tolerating PO fluids. Vital Signs: 00:59 BP 127 / 88; Pulse 94; Resp 20; Temp 97(O); Pulse Ox 100% on R/A; Weight 87.09 kg (R); jmv Height 5 ft. 11 in. (180.34 cm) (R); Pain 8/10; 01:00 BP 132 / 90 (auto/); ko2 01:00 Pulse Ox 100% ; ko2 01:15 BP 124 / 79 (auto/); ko2 01:15 Pulse Ox 99% ; ko2 01:29 Pulse Ox 98% ; ko2 01:30 BP 121 / 86 (auto/); ko2 01:45 BP 116 / 86 (auto/); ko2 01:45 Pulse Ox 99% ; ko2 02:00 Pulse Ox 98% ; ko2 02:00 BP 116 / 81 (auto/); ko2 02:05 Pulse Ox 98% ; ko2 02:15 BP 117 / 87 (auto/); ko2 02:30 BP 111 / 80 (auto/); ko2 02:30 Pulse Ox 99% ; ko2 02:44 Pulse Ox 100% ; ko2 02:45 BP 108 / 71 (auto/); ko2 03:00 BP 124 / 81 (auto/); ko2 03:00 Pulse Ox 99% ; ko2 03:15 BP 120 / 79 (auto/); ko2 03:15 Pulse Ox 99% ; ko2 03:29 Pulse Ox 98% ; ko2 03:30 BP 114 / 80 (auto/); ko2 03:45 Pulse Ox 97% ; ko2 03:45 BP 110 / 79 (auto/); ko2 04:00 BP 119 / 87 (auto/); ko2 04:00 Pulse Ox 98% ; ko2 04:15 BP 111 / 78 (auto/); ko2 04:15 Pulse Ox 99% ; ko2 04:45 BP 111 / 68 (auto/); ko2 04:45 Pulse Ox 98% ; ko2 05:00 BP 105 / 69 (auto/); ko2 05:00 Pulse Ox 99% ; ko2 05:15 BP 107 / 73 (auto/); ko2 05:15 Pulse Ox 98% ; ko2 05:30 BP 103 / 73 (auto/); ko2 05:30 Pulse Ox 98% ; ko2 05:44 Pulse Ox 97% ; ko2 05:45 BP 101 / 70 (auto/); ko2 06:00 BP 96 / 66 (auto/); ko2 06:00 Pulse Ox 98% ; ko2 06:15 BP 102 / 66 (auto/); ko2 06:15 Pulse Ox 97% ; ko2 07:18 BP 93 / 64 (auto/); kr3 07:27 Pulse 82 MON; Resp 16; Temp 97.1(O); Pulse Ox 99% ; kr3 08:15 BP 105 / 61 (auto/); kr3 08:15 Pulse Ox 100% ; kr3 00:59 Body Mass Index 26.78 (87.09 kg, 180.34 cm) [facility] Vitals: 02:13 Log In Time N/A - ambulance arrival. ko2 ED Course: 00:49 Patient visited by Guilherme Ruiz, Pre Certification Specialist. ml3 00:49 NO PRIMARY PHYSICIAN, . is Private Physician. ml3 00:49 Patient moved to Waiting ml3 00:50 Chey Mcintyre,RN is Primary Nurse. ml3 00:50 Patient moved to 18 ml3 00:55 Triage Initiated ko2 01:00 Patient visited by Wilson Gibbs PCA. v 01:00 Pt greeted and oriented to ED. Patient advised of names of staff involved in care, [facility] location of call nam, wait times and NPO status. Patient has correct armband on for positive identification. Placed in gown. Bed in low position. Call light in reach. Side rails up X2. Pulse ox on. NIBP on. 01:06 Patient visited by Chey Mcintyre RN. ko2 01:40 Man Shirley DO is Attending Physician. mm11 01:40 Patient visited by Man Shirley DO. mm11 01:48 Patient visited by Man Shirley DO. mm11 01:51 Liver Profile Sent. ko2 01:51 Lipase Sent. ko2 01:51 CBC with Diff Sent. ko2 01:51 Basic Metabolic Profile Sent. ko2 01:51 Amylase Sent. ko2 01:51 Osmolality, Serum Sent. ko2 02:09 Urinalysis Sent. jmv 02:09 Urine Culture Sent. jmv 02:10 Venous Blood Gas (large pea green tube on ice) Sent. jmv 02:13 Maintain field IV. Dressing intact. Good blood return noted. Site clean & dry. Gauge & ko2 site: 18 gauge left AC. 02:14 Patient visited by Chey Mcintyre RN. ko2 02:25 Notified attending ED physician of Critical lab value. Dr Shirley notified of glucose malcom of 684mg/dl. 02:59 Patient visited by Chey Mcintyre RN. ko2 03:00 The patient / caregiver is instructed regarding the plan of care and ED course. ko2 03:37 Patient visited by Man Shirley DO. mm11 04:42 Patient visited by Chey Mcintyre RN. ko2 04:53 Ping Voss sales representative cash registers. ys2 04:54 CT ABD & PELVIS: IV Contrast Only Returned. EDMS 05:05 Patient visited by Chey Mcintyre RN. ko2 05:16 Ping Voss is Hospitalizing Provider. mm11 05:30 [facility] Payment Agreement was scanned into [employer] and attached to record. hs2 05:38 Patient moved to Admit Hold ml3 07:06 Yola Cooley,ANTONIO is Primary Nurse. kr3 07:34 No procedures done that require assistance. kr3 07:49 T-Sheet-- Draft Copy was scanned into [employer] and attached to record. seh 08:49 Chest, 2 view PA, Lat Returned. EDMS 09:07 Patient moved to 20 js13 10:01 Patient moved to Admit Hold [facility] 11:50 Primary Nurse role handed off by Chey Mcintyre,ANTONIO ct3 Administered Medications: 02:11 Drug: NS 0.9% 1000 ml [sodium chloride 0.9 % intravenous solution] Route: IV; Rate: ko2 bolus; Site: left antecubital; 03:04 Follow up: IV Status: Completed infusion; IV Intake: 1000ml ko2 02:11 Drug: Ondansetron 4 mg [ondansetron HCl 2 mg/mL intravenous solution (2 mL)] Route: ko2 IVP; Site: left antecubital; 04:06 Follow up: Response: Nausea is resolved ko2 02:11 Drug: morphine 4 mg [morphine 4 mg/mL intravenous cartridge (1 mL)] Route: IVP; Site: ko2 left antecubital; 03:09 Drug: morphine 4 mg [morphine 4 mg/mL intravenous cartridge (1 mL)] Route: IVP; Site: ko2 left antecubital; 04:00 Drug: Insulin Regular Human (0.1 units/kg) 9 units [insulin regular human 100 unit/mL ko2 injection solution (0.09 mL)] {Co-Signature: malcom (Jailene Hoffmann RN).} Route: IVP; Site: left antecubital; 04:00 Drug: Insulin Regular Human Infusion (0.1units/kg/hr) 9 units/hr [insulin regular human ko2 100 unit/mL injection solution] {Co-Signature: malcom (Jailene Hoffmann RN).} Route: IV; Rate: calculated rate; Site: left antecubital; 05:37 Drug: Levemir - Insulin Detemir 30 units [insulin detemir 100 unit/mL subcutaneous ko2 solution (0.3 mL)] {Co-Signature: malcom (Jailene Hoffmann RN).} Route: Sub-Q; Site: left upper arm; Point of Care Testing: Blood Glucose: 05:06 Blood Glucose: 281 mg/dL; ko2 Ranges: Intake: 03:04 IV: 1000.00ml; Total: 1000.00ml. ko2 Output: 07:31 Urine: 1000.00ml (Voided); Total: 1000.00ml. kr3 Order Results: Lab Order: Amylase; SPEC'M 11/03/16 01:25 Test: AMYLASE; Value: 33; Range: 25-115; Units: U/L; Status: F Lab Order: Basic Metabolic Profile; SPEC'11/03/16 01:25 Test: GLUCOSE, FASTING; Value: 684; Range: 70-105; Abnormal: Above upper panic limits; Units: MG/DL; Status: F Test: BLOOD UREA NITROGEN; Value: 16; Range: 7-18; Units: MG/DL; Status: F Test: CREATININE FOR GFR; Value: 1.43; Range: 0.70-1.30; Abnormal: Above high normal; Units: MG/DL; Status: F Test: GLOMERULAR FILTRATION RATE; Value: > 60.0; Range: >60; Status: F Test: SODIUM LEVEL; Value: 135; Range: 136-145; Abnormal: Below low normal; Units: MEQ/L; Status: F Test: POTASSIUM SERUM; Value: 4.4; Range: 3.5-5.1; Units: MEQ/L; Status: F Test: CHLORIDE LEVEL; Value: 99; Range: 98-107; Units: MEQ/L; Status: F Test: CARBON DIOXIDE LEVEL; Value: 28; Range: 21-32; Units: MEQ/L; Status: F Test: ANION GAP; Value: 8; Range: 8-16; Units: MEQ/L; Status: F Test: CALCIUM LEVEL; Value: 8.6; Range: 8.5-10.1; Units: MG/DL; Status: F Test Note: ; Units are mL/min/1.73 m2 Chronic Kidney Disease Staging per NKF: Stage I & II GFR >=60 Normal to Mildly Decreased Stage III GFR 30-59 Moderately Decreased Stage IV GFR 15-29 Severely Decreased Stage V GFR <15 Very Little GFR Left ESRD GFR <15 on SUBMARINE WORKER Lab Order: CBC with Diff; SPEC'11/03/16 01:25 Test: WHITE BLOOD COUNT; Value: 5.2; Range: 4.0-10.0; Units: K/mm3; Status: F Test: RED BLOOD COUNT; Value: 4.72; Range: 4.30-6.10; Units: M/mm3; Status: F Test: HEMOGLOBIN; Value: 13.6; Range: 14.0-18.0; Abnormal: Below low normal; Units: g/dl; Status: F Test: HEMATOCRIT; Value: 41.6; Range: 42.0-52.0; Abnormal: Below low normal; Units: %; Status: F Test: MEAN CORPUSCULAR VOLUME; Value: 88.3; Range: 80.0-96.0; Units: fl; Status: F Test: MEAN CORPUSCULAR HEMOGLOBIN; Value: 28.8; Range: 27.0-33.0; Units: pg; Status: F Test: MEAN CORPUSCULAR HGB CONC; Value: 32.6; Range: 32.0-36.5; Units: g/dl; Status: F Test: RED CELL DISTRIBUTION WIDTH; Value: 12.8; Range: 11.5-14.5; Units: %; Status: F Test: PLATELET COUNT, AUTOMATED; Value: 179; Range: 150-450; Units: k/mm3; Status: F Test: NEUTROPHILS %; Value: 56.9; Range: 36.0-66.0; Units: %; Status: F Test: LYMPH %; Value: 32.6; Range: 24.0-44.0; Units: %; Status: F Test: MONO %; Value: 5.5; Range: 0.0-5.0; Abnormal: Above high normal; Units: %; Status: F Test: EOS %; Value: 1.6; Range: 0.0-3.0; Units: %; Status: F Test: BASO %; Value: 1.5; Range: 0.0-1.0; Abnormal: Above high normal; Units: %; Status: F Test: LARGE UNSTAINED CELL %; Value: 1.9; Range: 0.0-4.0; Units: %; Status: F Test: NEUTROPHILS #; Value: 2.9; Range: 1.8-7.7; Units: K/mm3; Status: F Test: LYMPH #; Value: 1.8; Range: 1.5-4.5; Units: K/mm3; Status: F Test: MONO #; Value: 0.3; Range: 0.0-0.8; Units: K/mm3; Status: F Test: EOS #; Value: 0.1; Range: 0.0-0.50; Units: K/mm3; Status: F Test: BASO #; Value: 0.1; Range: 0.0-0.2; Units: K/mm3; Status: F Test: LARGE UNSTAINED CELL #; Value: 0.1; Range: 0.0-0.4; Units: K/mm3; Status: F Lab Order: Lipase; [facility] 11/03/16 01:25 Test: LIPASE; Value: 197; Range: 73-393; Units: U/L; Status: F Lab Order: Liver Profile; [facility] 11/03/16 01:25 Test: AST/SGOT; Value: 14; Range: 15-37; Abnormal: Below low normal; Units: U/L; Status: F Test: ALT/SGPT; Value: 20; Range: 12-78; Units: U/L; Status: F Test: ALKALINE PHOSPHATASE; Value: 119; Range: 45-117; Abnormal: Above high normal; Units: U/L; Status: F Test: BILIRUBIN,TOTAL; Value: 0.3; Range: 0.2-1.0; Units: MG/DL; Status: F Test: BILIRUBIN,DIRECT; Value: < 0.1; Range: 0.0-0.2; Units: MG/DL; Status: F Test: TOTAL PROTEIN; Value: 7.4; Range: 6.4-8.2; Units: GM/DL; Status: F Test: ALBUMIN; Value: 3.5; Range: 3.2-5.2; Units: GM/DL; Status: F Test: ALBUMIN/GLOBULIN RATIO; Value: 0.90; Range: 1.00-1.93; Abnormal: Below low normal; Status: F Lab Order: Urinalysis; [facility] 11/03/16 02:09 Test: APPEARANCE, URINE; Value: CLEAR; Range: CLEAR; Status: F Test: COLOR, URINE; Value: STRAW; Range: YELLOW; Status: F Test: PH,URINE; Value: 5.0; Range: 5.0-9.0; Units: UNITS; Status: F Test: SPECIFIC GRAVITY URINE AUTO; Value: 1.029; Range: 1.002-1.035; Status: F Test: PROTEIN, URINE AUTO; Value: NEGATIVE; Range: NEGATIVE; Units: mg/dL; Status: F Test: GLUCOSE, URINE (UA) AUTO; Value: 3+; Range: NEGATIVE; Abnormal: Above high normal; Units: mg/dL; Status: F Test: KETONE, URINE AUTO; Value: NEGATIVE; Range: NEGATIVE; Units: mg/dL; Status: F Test: UROBILINOGEN, URINE AUTO; Value: 0.2; Range: 0.0-2.0; Units: mg/dL; Status: F Test: BILIRUBIN, URINE AUTO; Value: NEGATIVE; Range: NEGATIVE; Status: F Test: NITRITE, URINE AUTO; Value: NEGATIVE; Range: NEGATIVE; Status: F Test: LEUKOCYTE ESTERASE, URINE AUTO; Value: NEGATIVE; Range: NEGATIVE; Status: F Test: BLOOD, URINE BLOOD; Value: NEGATIVE; Range: NEGATIVE; Status: F Test: WBC, URINE AUTO; Value: 0; Range: 0-3; Units: /HPF; Status: F Test: RBC, URINE AUTO; Value: 1; Range: 0-3; Units: /HPF; Status: F Test: BACTERIA, URINE AUTO; Value: NEGATIVE; Range: NEGATIVE; Status: F Test: SQUAMOUS EPITHELIAL CELL UR AU; Value: 0; Range: 0-6; Units: /HPF; Status: F Test: MUCUS, URINE; Value: SMALL; Range: NEGATIVE; Status: F Test: HYALINE CAST, URINE AUTO; Value: 0; Range: 0-1; Units: /LPF; Status: F Lab Order: Venous Blood Gas (large pea green tube on ice); SPEC'M 11/03/16 02:02 Test: VENOUS PH; Value: 7.378; Range: 7.330-7.430; Units: UNITS; Status: F Test: VENOUS PARTIAL PRESSURE CO2; Value: 46.1; Range: 38.0-50.0; Units: mmHg; Status: F Test: VENOUS PARTIAL PRESSURE O2; Value: 74.4; Range: 30.0-50.0; Abnormal: Above high normal; Units: mmHg; Status: F Test: VENOUS TOTAL CO2; Value: 28.0; Range: 24.0-28.0; Units: MEQ/L; Status: F Test: VENOUS HCO3; Value: 26.5; Range: 23.0-27.0; Units: MEQ/L; Status: F Test: VENOUS BASE EXCESS; Value: 0.9; Range: -2.0-2.0; Status: F Test: VENOUS STANDARD HCO3; Value: 25.2; Units: MEQ/L; Status: F Test: VENOUS O2 SATURATION; Value: 94.8; Range: 60.0-80.0; Abnormal: Above high normal; Units: %; Status: F Lab Order: Osmolality, Serum; [facility] 11/03/16 01:25 Test: OSMOLALITY SERUM; Value: 325; Range: 275-295; Abnormal: Above high normal; Units: MOSM/KG; Status: F Lab Order: Fingerstick Blood Sugar; 11/03/16 04:59 Test: BEDSIDE GLUCOSE; Value: 281; Range: 70-105; Abnormal: Above high normal; Units: MG/DL; Status: F Lab Order: MAGNESIUM LEVEL; 11/03/16 06:08 Test: MAGNESIUM LEVEL; Value: 2.1; Range: 1.8-2.4; Units: MG/DL; Status: F Lab Order: BASIC METABOLIC PROFILE; 11/03/16 06:08 Test: GLUCOSE, FASTING; Value: 138; Range: 70-105; Abnormal: Above high normal; Units: MG/DL; Status: F Test: BLOOD UREA NITROGEN; Value: 14; Range: 7-18; Units: MG/DL; Status: F Test: CREATININE FOR GFR; Value: 1.18; Range: 0.70-1.30; Units: MG/DL; Status: F Test: GLOMERULAR FILTRATION RATE; Value: > 60.0; Range: >60; Status: F Test: SODIUM LEVEL; Value: 146; Range: 136-145; Abnormal: High; Units: MEQ/L; Status: F Test: POTASSIUM SERUM; Value: 3.6; Range: 3.5-5.1; Units: MEQ/L; Status: F Test: CHLORIDE LEVEL; Value: 109; Range: 98-107; Abnormal: Above high normal; Units: MEQ/L; Status: F Test: CARBON DIOXIDE LEVEL; Value: 29; Range: 21-32; Units: MEQ/L; Status: F Test: ANION GAP; Value: 8; Range: 8-16; Units: MEQ/L; Status: F Test: CALCIUM LEVEL; Value: 9.6; Range: 8.5-10.1; Units: MG/DL; Status: F Test Note: ; Units are mL/min/1.73 m2 Chronic Kidney Disease Staging per NKF: Stage I & II GFR >=60 Normal to Mildly Decreased Stage III GFR 30-59 Moderately Decreased Stage IV GFR 15-29 Severely Decreased Stage V GFR <15 Very Little GFR Left ESRD GFR <15 on SUBMARINE WORKER Lab Order: BASIC METABOLIC PROFILE; SPEC'M 11/03/16 07:18 Test: GLUCOSE, FASTING; Value: 147; Range: 70-105; Abnormal: Above high normal; Units: MG/DL; Status: F Test: BLOOD UREA NITROGEN; Value: 15; Range: 7-18; Units: MG/DL; Status: F Test: CREATININE FOR GFR; Value: 1.21; Range: 0.70-1.30; Units: MG/DL; Status: F Test: GLOMERULAR FILTRATION RATE; Value: > 60.0; Range: >60; Status: F Test: SODIUM LEVEL; Value: 146; Range: 136-145; Abnormal: Above high normal; Units: MEQ/L; Status: F Test: POTASSIUM SERUM; Value: 3.7; Range: 3.5-5.1; Units: MEQ/L; Status: F Test: CHLORIDE LEVEL; Value: 108; Range: 98-107; Abnormal: Above high normal; Units: MEQ/L; Status: F Test: CARBON DIOXIDE LEVEL; Value: 30; Range: 21-32; Units: MEQ/L; Status: F Test: ANION GAP; Value: 8; Range: 8-16; Units: MEQ/L; Status: F Test: CALCIUM LEVEL; Value: 9.6; Range: 8.5-10.1; Units: MG/DL; Status: F Test Note: ; Units are mL/min/1.73 m2 Chronic Kidney Disease Staging per NKF: Stage I & II GFR >=60 Normal to Mildly Decreased Stage III GFR 30-59 Moderately Decreased Stage IV GFR 15-29 Severely Decreased Stage V GFR <15 Very Little GFR Left ESRD GFR <15 on SUBMARINE WORKER Lab Order: BASIC METABOLIC PROFILE; SPEC'M 11/03/16 09:25 Test: GLUCOSE, FASTING; Value: 471; Range: 70-105; Abnormal: Above upper panic limits; Units: MG/DL; Status: F Test: BLOOD UREA NITROGEN; Value: 14; Range: 7-18; Units: MG/DL; Status: F Test: CREATININE FOR GFR; Value: 1.23; Range: 0.70-1.30; Units: MG/DL; Status: F Test: GLOMERULAR FILTRATION RATE; Value: > 60.0; Range: >60; Status: F Test: SODIUM LEVEL; Value: 141; Range: 136-145; Units: MEQ/L; Status: F Test: POTASSIUM SERUM; Value: 4.0; Range: 3.5-5.1; Units: MEQ/L; Status: F Test: CHLORIDE LEVEL; Value: 104; Range: 98-107; Units: MEQ/L; Status: F Test: CARBON DIOXIDE LEVEL; Value: 27; Range: 21-32; Units: MEQ/L; Status: F Test: ANION GAP; Value: 10; Range: 8-16; Units: MEQ/L; Status: F Test: CALCIUM LEVEL; Value: 8.7; Range: 8.5-10.1; Units: MG/DL; Status: F Test Note: ; Units are mL/min/1.73 m2 Chronic Kidney Disease Staging per NKF: Stage I & II GFR >=60 Normal to Mildly Decreased Stage III GFR 30-59 Moderately Decreased Stage IV GFR 15-29 Severely Decreased Stage V GFR <15 Very Little GFR Left ESRD GFR <15 on SUBMARINE WORKER Lab Order: BASIC METABOLIC PROFILE; [facility] 11/03/16 10:57 Test: GLUCOSE, FASTING; Value: 431; Range: 70-105; Abnormal: Above upper panic limits; Units: MG/DL; Status: F Test: BLOOD UREA NITROGEN; Value: 13; Range: 7-18; Units: MG/DL; Status: F Test: CREATININE FOR GFR; Value: 1.04; Range: 0.70-1.30; Units: MG/DL; Status: F Test: GLOMERULAR FILTRATION RATE; Value: > 60.0; Range: >60; Status: F Test: SODIUM LEVEL; Value: 139; Range: 136-145; Units: MEQ/L; Status: F Test: POTASSIUM SERUM; Value: 4.2; Range: 3.5-5.1; Units: MEQ/L; Status: F Test: CHLORIDE LEVEL; Value: 105; Range: 98-107; Units: MEQ/L; Status: F Test: CARBON DIOXIDE LEVEL; Value: 28; Range: 21-32; Units: MEQ/L; Status: F Test: ANION GAP; Value: 6; Range: 8-16; Abnormal: Below low normal; Units: MEQ/L; Status: F Test: CALCIUM LEVEL; Value: 8.6; Range: 8.5-10.1; Units: MG/DL; Status: F Test Note: ; Units are mL/min/1.73 m2 Chronic Kidney Disease Staging per NKF: Stage I & II GFR >=60 Normal to Mildly Decreased Stage III GFR 30-59 Moderately Decreased Stage IV GFR 15-29 Severely Decreased Stage V GFR <15 Very Little GFR Left ESRD GFR <15 on SUBMARINE WORKER Lab Order: BASIC METABOLIC PROFILE; [facility] 11/03/16 13:10 Test: GLUCOSE, FASTING; Value: 83; Range: 70-105; Units: MG/DL; Status: F Test: BLOOD UREA NITROGEN; Value: 12; Range: 7-18; Units: MG/DL; Status: F Test: CREATININE FOR GFR; Value: 0.93; Range: 0.70-1.30; Units: MG/DL; Status: F Test: GLOMERULAR FILTRATION RATE; Value: > 60.0; Range: >60; Status: F Test: SODIUM LEVEL; Value: 146; Range: 136-145; Abnormal: High; Units: MEQ/L; Status: F Test: POTASSIUM SERUM; Value: 3.7; Range: 3.5-5.1; Units: MEQ/L; Status: F Test: CHLORIDE LEVEL; Value: 110; Range: 98-107; Abnormal: Above high normal; Units: MEQ/L; Status: F Test: CARBON DIOXIDE LEVEL; Value: 30; Range: 21-32; Units: MEQ/L; Status: F Test: ANION GAP; Value: 6; Range: 8-16; Abnormal: Below low normal; Units: MEQ/L; Status: F Test: CALCIUM LEVEL; Value: 9.2; Range: 8.5-10.1; Units: MG/DL; Status: F Test Note: ; Units are mL/min/1.73 m2 Chronic Kidney Disease Staging per NKF: Stage I & II GFR >=60 Normal to Mildly Decreased Stage III GFR 30-59 Moderately Decreased Stage IV GFR 15-29 Severely Decreased Stage V GFR <15 Very Little GFR Left ESRD GFR <15 on SUBMARINE WORKER Lab Order: CARDIAC MARKER PANEL; SPEC'M 11/03/16 06:08 Test: CPK CREATINE PHOSPHOKINASE; Value: 59; Range: 39-308; Units: U/L; Status: F Test: CK-MB VALUE MASS; Value: 1.0; Range: 0.0-3.6; Units: NG/ML; Status: F Test: MB/CK RELATIVE INDEX; Value: 1.69; Range: < OR =4; Status: F Test: TROPONIN I; Value: < 0.02; Range: < 0.10; Units: NG/ML; Status: F Test Note: ; DIAGNOSIS CRITERIA MMB ng/ml Relative Index (RI) NON-AMI < or = 5 N/A [place] > 5 < or = 4 AMI > 5 > 4 Lab Order: CBC WITH DIFFERENTIAL; [facility] 11/03/16 06:08 Test: WHITE BLOOD COUNT; Value: 7.6; Range: 4.0-10.0; Units: K/mm3; Status: F Test: RED BLOOD COUNT; Value: 4.92; Range: 4.30-6.10; Units: M/mm3; Status: F Test: HEMOGLOBIN; Value: 14.0; Range: 14.0-18.0; Units: g/dl; Status: F Test: HEMATOCRIT; Value: 41.6; Range: 42.0-52.0; Abnormal: Below low normal; Units: %; Status: F Test: MEAN CORPUSCULAR VOLUME; Value: 84.6; Range: 80.0-96.0; Units: fl; Status: F Test: MEAN CORPUSCULAR HEMOGLOBIN; Value: 28.5; Range: 27.0-33.0; Units: pg; Status: F Test: MEAN CORPUSCULAR HGB CONC; Value: 33.7; Range: 32.0-36.5; Units: g/dl; Status: F Test: RED CELL DISTRIBUTION WIDTH; Value: 12.9; Range: 11.5-14.5; Units: %; Status: F Test: PLATELET COUNT, AUTOMATED; Value: 193; Range: 150-450; Units: k/mm3; Status: F Test: NEUTROPHILS %; Value: 55.5; Range: 36.0-66.0; Units: %; Status: F Test: LYMPH %; Value: 34.7; Range: 24.0-44.0; Units: %; Status: F Test: MONO %; Value: 5.4; Range: 0.0-5.0; Abnormal: Above high normal; Units: %; Status: F Test: EOS %; Value: 1.6; Range: 0.0-3.0; Units: %; Status: F Test: BASO %; Value: 1.1; Range: 0.0-1.0; Abnormal: Above high normal; Units: %; Status: F Test: LARGE UNSTAINED CELL %; Value: 1.6; Range: 0.0-4.0; Units: %; Status: F Test: NEUTROPHILS #; Value: 4.2; Range: 1.8-7.7; Units: K/mm3; Status: F Test: LYMPH #; Value: 2.7; Range: 1.5-4.5; Units: K/mm3; Status: F Test: MONO #; Value: 0.4; Range: 0.0-0.8; Units: K/mm3; Status: F Test: EOS #; Value: 0.1; Range: 0.0-0.50; Units: K/mm3; Status: F Test: BASO #; Value: 0.1; Range: 0.0-0.2; Units: K/mm3; Status: F Test: LARGE UNSTAINED CELL #; Value: 0.1; Range: 0.0-0.4; Units: K/mm3; Status: F Lab Order: HEMOGLOBIN A1C; [facility]' 11/03/16 16:02 Test: HEMOGLOBIN A1c; Value: 9.4; Range: 4.5-6.2; Abnormal: Above high normal; Units: %; Status: F Test: ESTIMATED AVERAGE GLUCOSE; Value: 223; Range: 60-110; Abnormal: Above high normal; Units: MG/DL; Status: F Lab Order: Fingerstick Blood Sugar; [facility]' 11/03/16 14:50 Test: BEDSIDE GLUCOSE; Value: 41; Range: 70-105; Abnormal: Below low normal; Units: MG/DL; Status: F Lab Order: Fingerstick Blood Sugar; [facility] 11/03/16 15:15 Test: BEDSIDE GLUCOSE; Value: 82; Range: 70-105; Units: MG/DL; Status: F Radiology Order: CT ABD & PELVIS: IV Contrast Only Test: CT ABD & PELVIS: IV Contrast Only REASON FOR EXAMINATION: LUQ pain; ; CLINICAL HISTORY: Abdominal pain.; TECHNIQUE: Multiple axial, sagittal and coronal CT images were obtained through the abdomen and pelvi; s after administration of intravenous contrast material.; COMMENTS:; The liver is of uniform attenuation without mass or defect.; There is no intra or extrahepatic biliary ductal dilatation. Well defined hypodense lesion of the spl; een.; The gallbladder contains gallstones. 5.9 cm peripherally calcified pancreatic tail cyst.; There is no evidence of adrenal mass.; 2.3 cm cyst of the right kidney.; Both kidneys demonstrate prompt and equal nephrograms. There is no evidence of renal or ureteral mass; . No renal or ureteral calculi are identified. There is no hydroureter or hydronephrosis.; No evidence for appendicitis. There is no bowel wall thickening. No evidence for small or large karson; l obstruction. There is no evidence of abdominal ascites or lymphadenopathy. Fluid-filled mildly dila; aylin small bowel.; There is no evidence of intrinsic or extrinsic bladder mass. There is no pelvic ascites or lymphadeno; pita.; Fecal stasis in the large bowels.; Images of the lung bases show no evidence of pleural or parenchymal mass. There are no pleural effusi; ons.; The bony structures are free of lytic or blastic lesions. Multilevel degenerative changes are seen in; volving the thoracolumbar spine. Scattered calcifications are seen involving the aorta and major bran; ches compatible with atherosclerosis.; IMPRESSION:; Cholelithiasis.; Simple cyst of the right kidney.; Well defined hypodense lesion of the spleen.; Peripherally calcified pancreatic tail cyst.; Large bowel fecal stasis.; Fluid-filled mildly dilated small bowel. Ileus versus developing partial small bowel obstruction.; Thank you for your kind referral of this patient.; ; Radiology Order: Chest, 2 view PA, Lat Test: Chest, 2 view PA, Lat REASON FOR EXAMINATION: acute respiratory distress; Chest x-ray: Two views.; ; History: Acute respiratory distress .; ; Comparison study: February 22, 2016 .; ; Findings: The lungs are well inflated and free of infiltrate. The pleural; angles are sharp. The heart size is normal. Pulmonary vasculature is not; increased. No significant bony abnormality is seen. The previously noted; peripherally calcified left upper quadrant lesion is just barely visible on PA; chest radiograph. This is unchanged from February 22, 2016. This is seen on today's; CT.; ; Impression:; ; Peripherally calcified lesion in the left upper quadrant of the abdomen,; otherwise negative chest x-ray.; ; ; Signed by; Galdino Wilcox MD 11/03/2016 08:26 A; Outcome: 03:00 CT Study completed. ko2 05:16 Decision to Hospitalize by Provider. mm11 16:33 Patient left the ED. ar3 Signatures: Dispatcher [employer] EDMS Cynthia Head, RN ANTONIO Hoffmann, Jailene Walker, RN RN malcom Ruiz, Crbeth, Pre Certification Specialist Unit ml3 Yola Cooley,RN RN liz3 Man Shirley, DO DO mm11 Alesha Gonzales, PROJECT DEVELOPMENT COORDINATOR PROJECT DEVELOPMENT COORDINATOR ar3 Barby Soriano, PROJECT DEVELOPMENT COORDINATOR PROJECT DEVELOPMENT COORDINATOR ct3 Mary Sepulveda,RN RN js13 Chey Mcintyre,RN RN beatriz2 Ping Voss 2 Shobha Olsen, Reg Reg hs2 Jelly Hayes Jose, PROJECT DEVELOPMENT COORDINATOR PROJECT DEVELOPMENT COORDINATOR jmv Jailene العراقي Chart Complete MTDD
--- NOTE | 2016-11-05 17:35 | EDDOCDS ---
Physician Documentation [facility] Name: Poppy Baptiste Age: 45 yrs Sex: Male : 1970 Arrival Date: 11/03/2016 Time: 00:48 Bed Admit Hold Private MD: NO PRIMARY PHYSICIAN, . Disposition: 11/03/16 05:16 Hospitalization ordered by Ping Voss for Inpatient Admission. Preliminary diagnosis is Diabetes mellitus due to underlying condition with hyperosmolarity. - Bed requested for PCU. - Status is Inpatient Admission. ar3 - Condition is Stable. - Problem is an acute exacerbation. - Symptoms have improved. Historical: - Allergies: tylenolhives; Aspirinhives; - Home Meds: 1. Humalog 100 unit/mL Sub-Q soln 22 unit three times a day (Last dose: 11/02/2016 08:00) 2. Lantus 100 unit/mL Sub-Q soln 30 unit nightly (Last dose: 11/01/2016 21:00) 3. metformin 500 mg oral tab 4. omeprazole 40 mg Oral cpDR 1 cap once daily (Last dose: 11/02/2016) 5. 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 Patient uses No barriers to communication noted, The patient speaks fluent Mauritanian, Speaks appropriately for age. - Family history: Not pertinent. - : The pt / caregiver states he / she is not on anticoagulants. Home medication list is obtained from the patient. - Exposure Risk Screening:: None identified. Vital Signs: 11/03 00:59 BP 127 / 88; Pulse 94; Resp 20; Temp 97(O); Pulse Ox 100% on R/A; Weight 87.09 kg / 192 jmv lbs (R); Height 5 ft. 11 in. (180.34 cm) (R); Pain 8/10; 01:00 BP 132 / 90 (auto/); ko2 01:00 Pulse Ox 100% ; ko2 01:15 BP 124 / 79 (auto/); ko2 01:15 Pulse Ox 99% ; ko2 01:29 Pulse Ox 98% ; ko2 01:30 BP 121 / 86 (auto/); ko2 01:45 BP 116 / 86 (auto/); ko2 01:45 Pulse Ox 99% ; ko2 02:00 Pulse Ox 98% ; ko2 02:00 BP 116 / 81 (auto/); ko2 02:05 Pulse Ox 98% ; ko2 02:15 BP 117 / 87 (auto/); ko2 02:30 BP 111 / 80 (auto/); ko2 02:30 Pulse Ox 99% ; ko2 02:44 Pulse Ox 100% ; ko2 02:45 BP 108 / 71 (auto/); ko2 03:00 BP 124 / 81 (auto/); ko2 03:00 Pulse Ox 99% ; ko2 03:15 BP 120 / 79 (auto/); ko2 03:15 Pulse Ox 99% ; ko2 03:29 Pulse Ox 98% ; ko2 03:30 BP 114 / 80 (auto/); ko2 03:45 Pulse Ox 97% ; ko2 03:45 BP 110 / 79 (auto/); ko2 04:00 BP 119 / 87 (auto/); ko2 04:00 Pulse Ox 98% ; ko2 04:15 BP 111 / 78 (auto/); ko2 04:15 Pulse Ox 99% ; ko2 04:45 BP 111 / 68 (auto/); ko2 04:45 Pulse Ox 98% ; ko2 05:00 BP 105 / 69 (auto/); ko2 05:00 Pulse Ox 99% ; ko2 05:15 BP 107 / 73 (auto/); ko2 05:15 Pulse Ox 98% ; ko2 05:30 BP 103 / 73 (auto/); ko2 05:30 Pulse Ox 98% ; ko2 05:44 Pulse Ox 97% ; ko2 05:45 BP 101 / 70 (auto/); ko2 06:00 BP 96 / 66 (auto/); ko2 06:00 Pulse Ox 98% ; ko2 06:15 BP 102 / 66 (auto/); ko2 06:15 Pulse Ox 97% ; ko2 07:18 BP 93 / 64 (auto/); kr3 07:27 Pulse 82 MON; Resp 16; Temp 97.1(O); Pulse Ox 99% ; kr3 08:15 BP 105 / 61 (auto/); kr3 08:15 Pulse Ox 100% ; kr3 00:59 Body Mass Index 26.78 (87.09 kg, 180.34 cm) jmv MDM: 01:49 NS 0.9% 1000 ml IV at bolus once ordered. mm11 01:49 Ondansetron 4 mg IVP once ordered. mm11 01:49 morphine 4 mg IVP every 30 minutes; Document pain score/vitals after each dose (Hold if mm11 SBP < 90mmHg) x2 ordered. 01:49 IV Saline Lock ordered. mm11 01:49 Undress patient appropriately for examination ordered. mm11 01:50 Amylase Ordered. EDMS 01:50 Basic Metabolic Profile Ordered. EDMS 01:50 CBC with Diff Ordered. EDMS 01:50 Lipase Ordered. EDMS 01:50 Liver Profile Ordered. EDMS 01:50 Urinalysis Ordered. EDMS 01:50 Urine Culture Ordered. EDMS 01:50 Venous Blood Gas (large pea green tube on ice) Ordered. EDMS 01:50 Osmolality, Serum Ordered. EDMS 02:23 CBC with Diff Reviewed. mm11 02:23 Urinalysis Reviewed. mm11 02:23 Venous Blood Gas (large pea green tube on ice) Reviewed. mm11 02:23 Osmolality, Serum Reviewed. mm11 02:24 Basic Metabolic Profile Reviewed. mm11 02:24 Liver Profile Reviewed. mm11 02:24 Amylase Reviewed. mm11 02:24 Lipase Reviewed. mm11 02:33 CT ABD & PELVIS: IV Contrast Only Ordered. EDMS 03:43 Insulin Regular Human (0.1 units/kg) 9 units IVP once ordered. mm11 03:43 Insulin Regular Human Infusion (0.1units/kg/hr) 9 units/hr IV at calculated rate Per mm11 protocol ordered. 03:44 BED REQUEST+ADM ordered. EDMS 04:56 Financial registration complete. hs2 05:07 Fingerstick Blood Sugar Ordered. EDMS 05:10 Admission / Observation Status ordered. EDMS 05:18 MAGNESIUM LEVEL Ordered. EDMS 05:18 BASIC METABOLIC PROFILE Ordered. EDMS 05:18 BASIC METABOLIC PROFILE Ordered. EDMS 05:19 BASIC METABOLIC PROFILE Ordered. EDMS 05:19 BASIC METABOLIC PROFILE Ordered. EDMS 05:19 BASIC METABOLIC PROFILE Ordered. EDMS 05:19 CARDIAC MARKER PANEL Ordered. EDMS 05:19 SPUTUM CULTURE AND GRAM STAIN Ordered. EDMS 05:19 BLOOD CULTURES Ordered. EDMS 05:19 GASTROINTESTINAL (GI) PANEL Ordered. EDMS 05:20 Chest, 2 view PA, Lat Ordered. EDMS 05:20 ELECTROCARDIOGRAM ADULT ordered. EDMS 05:21 CBC WITH DIFFERENTIAL Ordered. EDMS 05:24 Levemir - Insulin Detemir 100 unit/mL 30 units Sub-Q once ordered. mm11 05:30 [facility] Payment Agreement was scanned into Jingit and attached to record. hs2 06:17 BLOOD CULTURES Ordered. EDMS 07:49 T-Sheet-- Draft Copy was scanned into Jing[employer] and attached to record. seh 10:08 NPO DIET ordered. EDMS 13:39 NM-Gastric Emptying Study Ordered. EDMS 13:42 COMPLETE COMPHRENSIVE METABOLI Ordered. EDMS 13:42 MAGNESIUM LEVEL Ordered. EDMS 13:42 PHOSPHOROUS LEVEL Ordered. EDMS 13:42 HEMOGLOBIN A1C Ordered. EDMS 14:59 Fingerstick Blood Sugar Ordered. EDMS Point of Care Testing: Blood Glucose: 05:06 Blood Glucose: 281 mg/dL; ko2 Ranges: Administered Medications: 02:11 Drug: NS 0.9% 1000 ml [sodium chloride 0.9 % intravenous solution] Route: IV; Rate: ko2 bolus; Site: left antecubital; 03:04 Follow up: IV Status: Completed infusion; IV Intake: 1000ml ko2 02:11 Drug: Ondansetron 4 mg [ondansetron HCl 2 mg/mL intravenous solution (2 mL)] Route: ko2 IVP; Site: left antecubital; 04:06 Follow up: Response: Nausea is resolved ko2 02:11 Drug: morphine 4 mg [morphine 4 mg/mL intravenous cartridge (1 mL)] Route: IVP; Site: ko2 left antecubital; 03:09 Drug: morphine 4 mg [morphine 4 mg/mL intravenous cartridge (1 mL)] Route: IVP; Site: ko2 left antecubital; 04:00 Drug: Insulin Regular Human (0.1 units/kg) 9 units [insulin regular human 100 unit/mL ko2 injection solution (0.09 mL)] {Co-Signature: malcom (Jailene Hoffmann RN).} Route: IVP; Site: left antecubital; 04:00 Drug: Insulin Regular Human Infusion (0.1units/kg/hr) 9 units/hr [insulin regular human ko2 100 unit/mL injection solution] {Co-Signature: malcom (Jailene Hoffmann RN).} Route: IV; Rate: calculated rate; Site: left antecubital; 05:37 Drug: Levemir - Insulin Detemir 30 units [insulin detemir 100 unit/mL subcutaneous ko2 solution (0.3 mL)] {Co-Signature: malcom (Jailene Hoffmann RN).} Route: Sub-Q; Site: left upper arm; Signatures: Dispatcher [employer] EDMS Man Shirley, DO DO mm11 Alesha Gonzales, ARTIST MODEL ARTIST MODEL ar3 Chey Mcintyre,ANTONIO RN ko2 Shobha Olsen, Reg Reg hs2 Abigail Jelly [facility] Jailene العراقي The chart was reviewed and I authenticate all verbal orders and agree with the evaluation and treatment provided.Corrections: (The following items were deleted from the chart) 05:19 05:19 GASTROINTESTINAL (GI) PANEL ordered. EDMS EDMS 05:19 05:19 GASTROINTESTINAL (GI) PANEL ordered. EDMS EDMS 05:59 05:10 CONSISTENT CARBOHYDRATES ordered. EDMS EDMS 06:04 05:19 URINE CULTURE ordered. EDMS EDMS 07:32 01:50 NOTHING BY MOUTH+DIET ordered. EDMS EDMS 07:32 05:59 NPO DIET ordered. EDMS EDMS 10:08 07:32 CLEAR LIQUIDS DIET ordered. EDMS EDMS 13:43 13:39 HEMOGLOBIN A1C ordered. EDMS EDMS Attachments: 05:30 [facility] Payment Agreement hs2 07:49 T-Sheet-- Draft Copy [facility] Chart Complete MTDD
[2016-11-05 20:00] VITALS: BP 99/67
--- NOTE | 2016-11-05 20:45 | ECGEPIP ---
Stationary ECG Study [facility] Test Date: 2016-11-05 Pat Name: VITA PAULA Department: Room: [place] [address] Gender: M Supervisor [employer] Department: : 1970 Requested By: SOFIA VIRGEN Order Number: [id number] Reading MD: Dario Miner Measurements Intervals Stebbins Rate: 85 P: 73 ND: 150 QRS: 47 QRSD: 87 T: 73 QT: 359 QTc: 428 Interpretive Statements SINUS RHYTHM Septal Q waves of uncertain significance Electronically Signed On 11-05-2016 20:44:54 EST by Dario Miner
[2016-11-05] MEDS: LEVEMIR (INSULIN DETEMIR) 1 UNITS/0.01ML SC SCH (21:56)
[2016-11-05] MEDS: NORTRIPTYLINE 25 MG CAP PO SCH (21:57)
[2016-11-06] VITALS: BP 130/78
[2016-11-06] MEDS: MORPHINE 4 MG/ML 1ML SYRINGE IV PRN ×3 (02:51→12:08)
[2016-11-06 04:00] VITALS: BP 115/78
[2016-11-06] MEDS: HEPARIN SOD (PORCINE) 5000 UNITS/ML VIAL SC SCH ×2 (04:21→14:00)
--- NOTE | 2016-11-06 05:45 | ECHO ---
DATE OF PROCEDURE: 11/05/2016 REFERRING PHYSICIAN: Dr. Horace Ortiz. INDICATION: Central tachycardia. HEIGHT: 180 cm. WEIGHT: 88 kg. MEASUREMENTS: Aortic root: 3.6 cm Left atrium: 3.4 cm Ventricular septum: 0.96 cm Posterior wall: 1.00 cm Left ventricle diastole: 4.3 cm LVOT: 2.6 cm Inferior vena cava: 1.5 cm DOPPLER MEASUREMENTS: Aortic valve velocity: 136 cm/s LVOT velocity: 76.7 cm/s Mitral E velocity: 65.6 cm/s Mitral A velocity: 63.7 cm/s Mitral deacceleration time: 211 ms. Pulmonary artery systolic pressure 16 mmHg. MITRAL ANNULAR TISSUE DOPPLER: E-prime septal: 7.7 cm/s E-prime lateral: 12.2 cm/s DESCRIPTION: Rhythm was sinus. Image quality was good. No pericardial effusion. This was a 2D, M-mode, color flow Doppler and pulsed wave Doppler examination and included mitral annular tissue Doppler. CONCLUSIONS: 1. Normal echocardiogram Doppler. 2. Normal left ventricle, internal dimensions and wall thickness. Normal LV wall motion and wall thickening. Normal LV systolic function. Normal LV diastolic function. LVEF 60% by visual estimate.
[2016-11-06 05:59] LABS: BASO % 0.9 % (0.0-1.0); EOS # 0.1 K/mm3 (0.0-0.50); EOS % 4.3 % (0.0-3.0); LARGE UNSTAINED CELL # 0.1 K/mm3 (0.0-0.4); LARGE UNSTAINED CELL % 2.5 % (0.0-4.0); LYMPH # 1.6 K/mm3 (1.5-4.5); LYMPH % 51.4 % (24.0-44.0); MEAN CORPUSCULAR HGB CONC 34.8 g/dl (32.0-36.5); MEAN CORPUSCULAR VOLUME 83.5 fl (80.0-96.0); MONO # 0.1 K/mm3 (0.0-0.8); MONO % 4.4 % (0.0-5.0); NEUTROPHILS # 1.1 K/mm3 (1.8-7.7); NEUTROPHILS % 36.4 % (36.0-66.0); PLATELET COUNT, AUTOMATED 151 k/mm3 (150-450); RED CELL DISTRIBUTION WIDTH 11.9 % (11.5-14.5); WHITE BLOOD COUNT 3.1 K/mm3 (4.0-10.0)
[2016-11-06 06:18] LABS: ANION GAP 5 MEQ/L (8-16); BLOOD UREA NITROGEN 3 MG/DL (7-18); CALCIUM LEVEL 8.4 MG/DL (8.5-10.1); CARBON DIOXIDE LEVEL 31 MEQ/L (21-32); CHLORIDE LEVEL 105 MEQ/L (98-107); CREATININE FOR GFR 0.79 MG/DL (0.70-1.30); GLOMERULAR FILTRATION RATE > 60.0 (>60); GLUCOSE, FASTING 129 MG/DL (70-105); POTASSIUM SERUM 3.6 MEQ/L (3.5-5.1); SODIUM LEVEL 141 MEQ/L (136-145)
[2016-11-06 08:00] VITALS: BP 128/83
[2016-11-06] MEDS: HumaLOG INSULIN (NovoLOG) PER UNIT SC SCH ×2 (08:16→11:46)
[2016-11-06] MEDS: NICOTINE 14 MG/24 HR TRANSDERMAL TD SCH (08:17)
[2016-11-06] MEDS: OMEPRAZOLE 20 MG CAP PO SCH (08:17)
[2016-11-06] MEDS: METOCLOPRAMIDE INJ 10MG/2ML VIAL (J2765) IV SCH ×2 (08:17→12:06)
[2016-11-06] MEDS ORDERED: POTASSIUM CHLORIDE 10 MEQ SR TABLET PO ONE (08:30)
[2016-11-06 08:57] VITALS: BP 128/83
[2016-11-06] MEDS ORDERED: CARVedilol 3.125 MG TAB PO SCH (09:00)
[2016-11-06 12:00] VITALS: BP 107/64
[2016-11-06] MEDS ORDERED: REGL5TAB2 PO (13:30)
[2016-11-06] MEDS ORDERED: CARV3.12 PO (13:30)
[2016-11-06] MEDS ORDERED: FLAG500T PO (13:30)
[2016-11-06] MEDS ORDERED: metroNIDAZOLE (FLAGYL) 500 MG TAB PO SCH (14:00)
--- NOTE | 2016-11-06 18:16 | DS.PDOC ---
Discharge Summary General Date of Admission Nov 04, 2016 at 05:03 Date of Discharge Nov 06, 2016 at 15:06 Attending Physician: SOFIA VIRGEN MD Discharge Summary PROCEDURES PERFORMED DURING STAY: None. COMPLICATIONS/CHIEF COMPLAINT: Hyperosmalarity Due To Secondary Diabetes ADMISSION/DISCHARGE DIAGNOSES: 1. Hyperosmolar Hyperglycemic state with h/o Type 1 Diabetes 2. Non-sustained V. Tach 3. Clostridium difficile 4. H/o Pancreatitis/Gallstones. 5. Hypertension. 6. H/o Pancreatic pseudocyst. HISTORY OF PRESENT ILLNESS/HOSPITAL COURSE: This is a 45-year-old male with a past medical history of type 1 diabetes mellitus who presents complaining of severe left upper quadrant abdominal pain with associated nausea, vomiting and diarrhea. Patient states that his symptoms started inserted prior to admission. He was initially feeling uncomfortable had an episode of diarrhea felt increasing fatigue and noticed that his pain had increased throughout the day. Patient's states that he denies any fevers however had chills and night sweats. The patient had no sick contacts. Patient is visiting from [place] as his relative lives in [place]. Of note patient does have a history of pancreatitis had a pancreatic pseudocyst that was aspirated into thousand 4. Patient's asystole hasn't had any significant changes. Upon presentation patient was found to have hyperosmolar hyper glycemic states. Patient's was placed on insulin drip and transition to Levemir. The patient continues to have abdominal pain and had a gastric Dating study which was positive. Patient was then started on Reglan. Of note the patient said diarrhea had not subsided since presentation and the patient had a C. difficile toxin that was noted to be positive. Patient was then started on Reglan prior to discharge which he'll continue for a total 10 days. With the course of hospitalization patient also had nonsustained V. tach, although the patient was asymptomatic. Patient had a 3 beat run, followed by a 4 beat run, however had no additional episodes. Patient's electrolytes were replaced and the patient was started on low-dose beta maritza. Echocardiogram is relatively unremarkable. I did speak with Dr. Jeff with falling up shortly with the patient on outpatient basis. DISCHARGE MEDICATIONS: Please see below. ALLERGIES: Please see below. PHYSICAL EXAMINATION ON DISCHARGE: VITAL SIGNS: Please see below. General: No acute distress, laying comfortably in bed. HEENT: Moist mucous membranes. Neck: No JVD or lymphadenopathy Cardiac: RRR, No murmurs Pulm: Clear to auscultation b/l. No wheezing, rhonchi Abd: NT/ND + BS Ext: No edema or cyanosis LABORATORY DATA: Please see below. IMAGING: CT abdomen/pelvis on 11/03/16 IMPRESSION: Cholelithiasis. Simple cyst of the right kidney. Well defined hypodense lesion of the spleen. Peripherally calcified pancreatic tail cyst. Large bowel fecal stasis. Fluid-filled mildly dilated small bowel. Ileus versus developing partial small bowel obstruction. Chest x-ray on 11/03/16 Impression: Peripherally calcified lesion in the left upper quadrant of the abdomen, otherwise negative chest x-ray. Gastric emptying study 11/04/16 Impression: Markedly delayed gastric emptying. No observable gastric emptying during the 89-minute observation. VTE Prophylaxis ordered?: Yes DISCHARGE CONDITION: Stable DISPOSITION: 01 Home, Self-Care ACTIVITY: As tolerated DIET: Consistent carbohydrate diet ITEMS TO FOLLOWUP ON OUTPATIENT: DISCHARGE PLAN AND INSTRUCTIONS: 1. Follow-up with PCP, as well as Dr. Jeff in one week. Finish course of Flagyl for Clostridium difficile. If patient decides to go back to [place], he states he will have his PCP refer him to a pharmaceutical engineer. TIME SPENT ON DISCHARGE: Greater than 30a minutes. Vital Signs/I&Os Vital Signs Date Time Temp Pulse Resp B/P Pulse Ox O2 Delivery O2 Flow Rate FiO2 11/06/16 12:18 18 11/06/16 12:00 95.2 80 107/64 98 Room Air I&O- Last 24 Hours up to 6 AM 11/06/16 06:00 Intake Total 3270 ml Output Total 1975 ml Balance 1295 ml Laboratory Data Labs 24H Laboratory Tests 2 11/05/16 21:24: Bedside Glucose (Misc Panel) 167H 11/05/16 22:24: Troponin I < 0.02 11/06/16 05:42: Anion Gap 5L, White Blood Count 3.1L, Red Blood Count 4.14L, Hemoglobin 12.0L, Hematocrit 34.6L, Mean Corpuscular Volume 83.5, Mean Corpuscular Hemoglobin 29.0 , Mean Corpuscular Hemoglobin Concent 34.8, Red Cell Distribution Width 11.9, Platelet Count 151, Neutrophils (%) (Auto) 36.4, Lymphocytes (%) (Auto) 51.4H, Monocytes (%) (Auto) 4.4, Eosinophils (%) (Auto) 4.3H, Basophils (%) (Auto) 0.9 , Neutrophils # (Auto) 1.1L, Lymphocytes # (Auto) 1.6, Monocytes # (Auto) 0.1, Eosinophils # (Auto) 0.1, Basophils # (Auto) 0.0, Blood Urea Nitrogen 3L, Creatinine 0.79, Sodium Level 141, Potassium Level 3.6, Chloride Level 105, Carbon Dioxide Level 31, Calcium Level 8.4L, Glomerular Filtration Rate > 60.0, Large Unclassified Cells # 0.1, Large Unclassified Cells % 2.5, Magnesium Level 2.0 11/06/16 11:38: Bedside Glucose (Misc Panel) 99 CBC/BMP Laboratory Tests 11/06/16 05:42 Calcium Level 8.4 L, Red Blood Count 4.14 L, Mean Corpuscular Volume 83.5, Mean Corpuscular Hemoglobin 29.0, Mean Corpuscular Hemoglobin Concent 34.8, Red Cell Distribution Width 11.9, Neutrophils (%) (Auto) 36.4, Lymphocytes (%) (Auto) 51.4 H, Monocytes (%) (Auto) 4.4, Eosinophils (%) (Auto) 4.3 H, Basophils (%) ( Auto) 0.9, Neutrophils # (Auto) 1.1 L, Lymphocytes # (Auto) 1.6, Monocytes # ( Auto) 0.1, Eosinophils # (Auto) 0.1, Basophils # (Auto) 0.0 FSBS Laboratory Tests Test 11/05/16 21:24 11/06/16 11:38 Range/Units Bedside Glucose (Misc Panel) 167 99 70-105 MG/DL Microbiology Microbiology 11/03/16 Blood Culture - Preliminary, Resulted No Growth after 72 hours. All specime... 11/03/16 Blood Culture - Preliminary, Resulted No Growth after 72 hours. All specime... 11/06/16 Clostridium difficile (PCR) - Final, Complete 11/06/16 Gastrointestinal Tract Panel (PCR), Received Pending 11/03/16 Urine Culture - Final, Complete Medications Scheduled Carvedilol (Carvedilol) 3.125 Mg Tab 3.125 MG PO BID Insulin Glargine (Lantus) 100 U/Ml Susp 30 UNITS SC QHS Insulin Human Lispro (Humalog Kwikpen) 100 Unit/Ml Inj 22 UNITS SC TID Metformin Hydrochloride (Metformin HCl) 500 Mg Tab 500 MG PO BID Metoclopramide Hcl (Reglan) 5 Mg Tab 5 MG PO AC Metronidazole (Flagyl) 500 Mg Tab 500 MG PO Q8H Nortriptyline HCl (Nortriptyline HCl) 25 Mg Cap 25 MG PO QHS Omeprazole ([facility] Omeprazole) 20 Mg Tab 20 MG PO DAILY Allergies Coded Allergies: Acetaminophen (Unverified Allergy, Mild, hives, 11/03/16) Aspirin (Unverified Allergy, Mild, hives, 11/03/16) has had toradol in the past SOFIA VIRGEN MD Nov 06, 2016 18:16
== END 2016-11-06 15:06 | disposition home or self-care (01) | DRG 420 ==
LOC: M ED 00:48 → M ED INP 05:03 → M PCU 16:00 → OBSVTOIN 11-04 05:03
PROVIDERS: ADMIT Internal Medicine; ATTEND Internal Medicine
DX: E10.69 Type 1 diabetes mellitus with other specified complication (principal); A04.7 Enterocolitis due to Clostridium difficile; K86.1 Other chronic pancreatitis; K56.7 Ileus, unspecified; K31.84 Gastroparesis; E10.65 Type 1 diabetes mellitus with hyperglycemia; I47.2 Ventricular tachycardia; E10.43 Type 1 diabetes mellitus with diabetic autonomic (poly)neuropathy; I10 Essential (primary) hypertension; E87.6 Hypokalemia; D64.9 Anemia, unspecified; E86.0 Dehydration; F17.210 Nicotine dependence, cigarettes, uncomplicated; Z89.422 Acquired absence of other left toe(s); Z89.421 Acquired absence of other right toe(s); Z79.4 Long term (current) use of insulin

== ENCOUNTER 2016-11-23 20:21 | Emergency (ER) | payer BC ==
[~2016-11-23 20:21] MED LIST changes: +CARV3.12 PO; +CVS20TAB PO; +FLAG500T PO; +HUMA100I5 SC; +INSULADS SC; -LEVEMIR (INSULIN DETEMIR) 1 UNITS/0.01ML SC SCH; +LISI10TA4 PO; +METF500T PO; +NORT25CA2 PO; +REGL5TAB2 PO
[2016-11-23] MEDS ORDERED: ONDANSETRON 4MG/2ML VIAL (J2405) As Ordered ONE (21:24)
[2016-11-23] MEDS ORDERED: MORPHINE 4 MG/ML 1ML SYRINGE As Ordered ONE ×2 (21:40→22:56)
[2016-11-23 21:58] LABS: VENOUS BASE EXCESS -1.1 (-2.0-2.0); VENOUS PARTIAL PRESSURE CO2 39.6 mmHg (38.0-50.0); VENOUS PARTIAL PRESSURE O2 42.3 mmHg (30.0-50.0); VENOUS STANDARD HCO3 23.2 MEQ/L; VENOUS TOTAL CO2 24.9 MEQ/L (24.0-28.0)
[2016-11-23 22:01] LABS: BASO # 0.1 K/mm3 (0.0-0.2); BASO % 0.7 % (0.0-1.0); EOS % 0.3 % (0.0-3.0); LARGE UNSTAINED CELL # 0.1 K/mm3 (0.0-0.4); LYMPH # 0.9 K/mm3 (1.5-4.5); LYMPH % 10.4 % (24.0-44.0); MEAN CORPUSCULAR HEMOGLOBIN 27.9 pg (27.0-33.0); MEAN CORPUSCULAR HGB CONC 33.7 g/dl (32.0-36.5); MEAN CORPUSCULAR VOLUME 82.9 fl (80.0-96.0); MONO # 0.5 K/mm3 (0.0-0.8); MONO % 5.7 % (0.0-5.0); NEUTROPHILS # 6.6 K/mm3 (1.8-7.7); NEUTROPHILS % 81.8 % (36.0-66.0); PLATELET COUNT, AUTOMATED 118 k/mm3 (150-450); RED CELL DISTRIBUTION WIDTH 12.7 % (11.5-14.5); WHITE BLOOD COUNT 8.1 K/mm3 (4.0-10.0)
[2016-11-23 22:20] LABS: OSMOLALITY SERUM 293 MOSM/KG (275-295)
[2016-11-23 22:31] LABS: ALKALINE PHOSPHATASE 126 U/L (45-117); ALT/SGPT 37 U/L (12-78); AMYLASE 42 U/L (25-115); ANION GAP 10 MEQ/L (8-16); AST/SGOT 48 U/L (15-37); BILIRUBIN,DIRECT 0.4 MG/DL (0.0-0.2); BILIRUBIN,TOTAL 1.5 MG/DL (0.2-1.0); BLOOD UREA NITROGEN 14 MG/DL (7-18); CARBON DIOXIDE LEVEL 28 MEQ/L (21-32); CHLORIDE LEVEL 101 MEQ/L (98-107); GLOMERULAR FILTRATION RATE > 60.0 (>60); GLUCOSE, FASTING 127 MG/DL (70-105); POTASSIUM SERUM 3.3 MEQ/L (3.5-5.1); SODIUM LEVEL 139 MEQ/L (136-145)
[2016-11-23 22:32] LABS: ALBUMIN 3.4 GM/DL (3.2-5.2); ALBUMIN/GLOBULIN RATIO 0.83 (1.00-1.93); TOTAL PROTEIN 7.5 GM/DL (6.4-8.2)
[2016-11-24] MEDS ORDERED: ISOVUE-370 76% 100ML VIAL (Q9967) As Ordered ONE (00:47)
[2016-11-24] MEDS ORDERED: GI COCKTAIL 50ML BTL(HYOSCYAMINE/MAALOX/LIDOCAINE VISCOUS)(1:3:1) As Ordered ONE (01:10)
--- NOTE | 2016-11-24 02:40 | REPUSA ---
CLINICAL HISTORY: Abdominal pain. TECHNIQUE: Multiple axial, sagittal and coronal CT images were obtained through the abdomen and pelvi s after administration of intravenous contrast material. COMMENTS: The liver is of uniform attenuation without mass or defect. There is no intra or extrahepatic biliary ductal dilatation. Well defined hypodense lesion of the spleen. The gallbladder contains gallstones. 6 x 4.5 cm peripherally calcified pancreatic tail cyst. There is no evidence of adrenal mass. Both kidneys demonstrate prompt and equal nephrograms. There is no evidence of renal or ureteral mass. No renal or ureteral calculi are identified. There is no hydr oureter or hydronephrosis. 2.3 cm cyst of the right kidney. No evidence for appendicitis. There is no bowel wall thickening. No evidence for small or large bowel obstruction. There is no evidence of abdominal ascites or lymphadenopathy. Fluid-filled mildly thick -walled small bowel compatible with mild enteritis versus ileus. There is no evidence of intrinsic or extrinsic bladder mass. There is no pelvic ascites or lymphadeno pita. Images of the lung bases show no evidence of pleural or parenchymal mass. There are no pleural effusi ons. The bony structures are free of lytic or blastic lesions. Multilevel degenerative changes are seen in volving the thoracolumbar spine. Scattered calcifications are seen involving the aorta and major bran ches compatible with atherosclerosis. Impression: Cholelithiasis. 6 x 4.5 cm peripherally calcified pancreatic tail cyst. Fluid-filled mildly thick-walled small bowel compatible with mild enteritis versus ileus.
--- NOTE | 2016-11-24 05:34 | EDDOCDS ---
Nurse's Notes [facility] Name: Poppy Baptiste Age: 45 yrs Sex: Male : 1970 Arrival Date: 11/23/2016 Time: 20:21 Bed OBSERVATION Private MD: NO PRIMARY PHYSICIAN, . Diagnosis: Noninfective gastroenteritis and colitis, unspecified Presentation: 11/23 20:24 Presenting complaint: EMS states: per EMS pt has had reproducable CP for the past 36 tm5 hours now, BG FS 142, #18 Left forearm, no ASA given, left sided abdominal pain also, VSS, Sinus tach per EMS, no NTG given. Aspirin was not taken prior to arrival. Adult Sepsis Screening: The patient does not have new or worsening altered mentation. Patient's respiratory rate is less than 22. Systolic blood pressure is greater than 100. Patient has a qSOFA score of 0- Negative Sepsis Screen. Suicide/Homicide risk assessment- the patient denies having any suicidal and/or homicidal ideations and does not present with any other emotional, behavioral or mental health complaints. Status: Patient is not a nutrition services worker or dependent. Transition of care: patient was not received from another setting of care. 20:24 Acuity: FRANCESCO Level 3 tm5 20:24 Method Of Arrival: Ambulance tm5 Triage Assessment: 20:32 General: Appears in no apparent distress, Behavior is appropriate for age, cooperative. tm5 Pain: Location: chest, left upper quadrant and left lower quadrant Pain currently is 8 out of 10 on a pain scale. Quality of pain is described as aching, pressure. Pt Declines HIV testing. The patient is triaged at the bedside. See Assessment in Nurses Notes section of ED record. Neurological: Level of Consciousness is awake, alert, Oriented to person, place, time. Cardiovascular: Rhythm is sinus tachycardia No ectopy. Chest pain is described as mild, quality is burning, pressure, radiates Does not radiate. episodes are intermittent began 36 hours ago. Respiratory: Airway is patent Respiratory effort is even, unlabored, Respiratory pattern is regular, symmetrical, Breath sounds are clear bilaterally. GI: Abdomen is flat, non- distended Bowel sounds present X 4 quads. Abd is soft X 4 quads Abd is tender to palpation in left upper quadrant and left lower quadrant. : No deficits noted. Derm: Skin is pink, warm & dry. normal. Historical: - Allergies: Aspirinhives; tylenolhives; - Home Meds: 1. Lantus 100 unit/mL Sub-Q soln 30 unit nightly 2. Humalog 100 unit/mL Sub-Q soln 22 unit three times a day 3. Lisinopril Oral 4. metformin 500 mg Oral tab 2 times per day 5. omeprazole 40 mg Oral cpDR 1 cap once daily 6. Reglan 5 mg Oral tab 1 tab once daily 7. Creon 12,000-38,000 -60,000 unit oral cpDR 1 caps 3 times per day 8. nortriptyline 25 mg Oral cap nightly - PMHx: Diabetes - IDDM: controlled; gall stones; Hypertension; Pancreatitis; pseudocyst on pancreas; - PSHx: Pseudo cyst removed; toes amputated; - Social history: Smoking status: Patient uses tobacco products, current every day smoker. No barriers to communication noted. - Family history: Not pertinent. - : The pt / caregiver states he / she is not on anticoagulants. Home medication list is obtained from pill bottles. - Exposure Risk Screening:: None identified. Screenin:36 Screening information is obtained from the patient. Fall risk: No risks identified. tm5 Assistance ADL's: requires no assistance with activities of daily living. Abuse/DV Screen: The patient / caregiver reports he/she is: not in a situation that causes fear, pain or injury. Nutritional screening: No deficits noted. Advance Directives: Currently, there is no health care proxy. There is no active DNR order. home support is adequate. Assessment: 20:36 General: see triage assessment . Cardiovascular: Rhythm is sinus tachycardia. tm5 21:37 General: Pt returned from Xray, per flight test data acquisition technician pt almost " fell onto floor" was assisted sls1 back to bed, pt reports " I almost lost consciousness" vital signs obtained, provider aware. 22:58 Reassessment: pt asking for another dose of pain medications at this time, complains of tm5 Left sided abdominal pain 05/05, denies Nausea at this time. 11/24 00:17 Reassessment: Patient appears in no apparent distress at this time. Patient states tm5 symptoms have improved. pt resting with eyes closed, resp easy, no s/s of any distress. 00:17 Cardiovascular: Rhythm is sinus rhythm No ectopy. tm5 01:05 General: pt complains of Left sided abdominal pain, MD aware orders received . tm5 04:12 General: pt provided with Hortensia sandor for Fluid challenge. tm5 05:31 Reassessment: Patient appears in no apparent distress at this time. Patient states tm5 symptoms have improved. pt consumed hortensia sandor without any complaints . Vital Signs: 11/23 20:32 BP 118 / 79; Pulse 119; Resp 20; Temp 100.8(O); Pulse Ox 96% on R/A; Weight 87.09 kg; tm5 Height 5 ft. 11 in. (180.34 cm); Pain 8/10; 21:35 BP 118 / 78 (auto/); tm5 21:35 Pulse 122 MON; Pulse Ox 100% ; tm5 21:43 BP 127 / 83 (auto/); tm5 21:43 Pulse 116 MON; Resp 20 S; Pulse Ox 100% on R/A; tm5 21:43 BP 129 / 87 (auto/); tm5 21:44 Pulse 118 MON; Pulse Ox 100% ; tm5 11/24 00:18 BP 122 / 58; Pulse 112; Resp 18; Temp 99.6(O); Pulse Ox 98% on R/A; tm5 01:06 BP 129 / 80 (auto/); tm5 01:06 Pulse 116 MON; Resp 18 S; Pulse Ox 95% on R/A; tm5 05:31 BP 122 / 78; Pulse 74; Resp 20; Temp 99.0(O); Pulse Ox 99% on R/A; Pain 0/10; tm5 11/23 20:32 Body Mass Index 26.78 (87.09 kg, 180.34 cm) tm5 Vitals: 11/23 20:32 Log In Time N/A - ambulance arrival. tm5 ED Course: 20:22 Hiral Sauceda,ANTONIO is Primary Nurse. [facility] 20:22 Patient visited by Gregoria Rider, Motor Vehicle Representative. jl 20:22 NO PRIMARY PHYSICIAN, . is Private Physician. jl 20:22 Patient moved to [facility] 20:24 Patient visited by Tsering Bowen RN. tm5 20:28 Triage Initiated tm5 20:36 Awaiting ED physician evaluation. tm5 20:36 The patient / caregiver is instructed regarding the plan of care and ED course. Cardiac tm5 monitor on. Pulse ox on. NIBP on. Warm blanket given. Pillow given. 20:36 Maintain field IV. Dressing intact. Good blood return noted. Site clean & dry. Gauge & tm5 site: #18 left forearm . EKG done. (by ED staff). Reviewed by Man Shirley DO. 20:37 EKG done. (by ED staff). Reviewed by Man Shirley DO. jmv 20:38 Patient visited by Wilson Gibbs PCA. jmv 20:38 Pt greeted and oriented to ED. Patient advised of names of staff involved in care, [facility] location of call nam, wait times and NPO status. Patient has correct armband on for positive identification. Placed in gown. Bed in low position. Call light in reach. Side rails up X2. 20:39 Patient visited by Wilson Gibbs PCA. jmv 20:49 Man Shirley DO is Attending Physician. mm11 20:49 Patient visited by Man Shirley DO. mm11 21:04 Patient visited by Man Shirley DO. mm11 21:05 Patient moved to OBSERVATION mm11 21:06 Patient moved to 4 mm11 21:37 Patient moved to OBSERVATION mm11 21:39 Patient visited by Judit Rivera RN. sls1 21:51 Patient visited by Tsering Bowen,ANTONIO. tm5 21:52 Osmolality, Serum Sent. tm5 21:52 Venous Blood Gas (large pea green tube on ice) Sent. tm5 21:52 Amylase Sent. tm5 21:52 Basic Metabolic Profile Sent. tm5 21:52 CBC with Diff Sent. tm5 21:52 Cardiac Injury Profile Sent. tm5 21:52 Lipase Sent. tm5 21:53 Liver Profile Sent. tm5 21:53 Troponin Sent. tm5 22:32 Patient visited by Tsering Bowen,ANTONIO. tm5 22:57 Primary Nurse role handed off by Hiral Sauceda,ANTONIO ms18 22:58 Patient visited by Tsering Bowen,ANTONIO. tm5 11/24 00:17 Patient visited by Tsering Bowen,ANTONIO. tm5 00:55 Patient visited by Tsering Bowen,ANTONIO. tm5 00:[address] tm5 01:01 [facility] Payment Agreement was scanned into [employer] and attached to record. ks16 01:14 Patient moved back from [address]. tm5 02:47 CT ABD & PELVIS: IV Contrast Only Returned. EDMS 05:31 Patient visited by Tsering Bowen RN. tm5 05:31 Discontinued lock intact, bleeding controlled, pressure dressing applied, No tm5 redness/swelling at site. No procedures done that require assistance. Administered Medications: 11/23 21:30 Drug: NS 0.9% 1000 ml [sodium chloride 0.9 % intravenous solution] Route: IV; Rate: sls1 bolus; Site: left forearm; 22:59 Follow up: IV Status: Completed infusion; IV Intake: 1000ml tm5 21:31 Drug: Ondansetron 4 mg [ondansetron HCl 2 mg/mL intravenous solution (2 mL)] Route: sls1 IVP; Site: left forearm; 22:00 Follow up: Response: Nausea is decreased; No Adverse Reaction tm5 21:45 Drug: morphine 4 mg [morphine 4 mg/mL intravenous cartridge (1 mL)] Route: IVP; Site: tm5 left forearm; 22:15 Follow up: Response: No Adverse Reaction; Pain is decreased tm5 22:59 Drug: morphine 4 mg [morphine 4 mg/mL intravenous cartridge (1 mL)] Route: IVP; Site: tm5 left forearm; 23:30 Follow up: Response: No Adverse Reaction; Pain is decreased tm5 11/24 01:14 Drug: GI Cocktail - (Alum-Mag Hydroxide-Simeth Suspension 225 mg-200 mg-25 mg/5 mL 30 tm5 ml, Lidocaine Liquid 2 % 10 ml, Hyoscyamine Liquid 10 ml) Route: PO; 04:07 Follow up: Response: No Adverse Reaction; Pain is decreased tm5 Intake: 11/23 22:59 IV: 1000.00ml; Total: 1000.00ml. tm5 Order Results: Lab Order: Amylase; SPEC'M 11/23/16 21:50 Test: AMYLASE; Value: 42; Range: 25-115; Units: U/L; Status: F Lab Order: Basic Metabolic Profile; SPEC'M 11/23/16 21:50 Test: GLUCOSE, FASTING; Value: 127; Range: 70-105; Abnormal: Above high normal; Units: MG/DL; Status: F Test: BLOOD UREA NITROGEN; Value: 14; Range: 7-18; Units: MG/DL; Status: F Test: CREATININE FOR GFR; Value: 1.10; Range: 0.70-1.30; Units: MG/DL; Status: F Test: SODIUM LEVEL; Range: 136-145; Units: MEQ/L; Status: I Test: POTASSIUM SERUM; Range: 3.5-5.1; Units: MEQ/L; Status: I Test: CHLORIDE LEVEL; Range: 98-107; Units: MEQ/L; Status: I Test: CARBON DIOXIDE LEVEL; Range: 21-32; Units: MEQ/L; Status: I Test: ANION GAP; Range: 8-16; Units: MEQ/L; Status: I Test: CALCIUM LEVEL; Range: 8.5-10.1; Units: MG/DL; Status: I Test: GLOMERULAR FILTRATION RATE; Value: > 60.0; Range: >60; Status: F Test: SODIUM LEVEL; Value: 139; Range: 136-145; Units: MEQ/L; Status: F Test: POTASSIUM SERUM; Value: 3.3; Range: 3.5-5.1; Abnormal: Below low normal; Units: MEQ/L; Status: F Test: CHLORIDE LEVEL; Value: 101; Range: 98-107; Units: MEQ/L; Status: F Test: CARBON DIOXIDE LEVEL; Value: 28; Range: 21-32; Units: MEQ/L; Status: F Test: ANION GAP; Value: 10; Range: 8-16; Units: MEQ/L; Status: F Test: CALCIUM LEVEL; Value: 8.0; Range: 8.5-10.1; Abnormal: Below low normal; Units: MG/DL; Status: F Test Note: ; Units are mL/min/1.73 m2 Chronic Kidney Disease Staging per NKF: Stage I & II GFR >=60 Normal to Mildly Decreased Stage III GFR 30-59 Moderately Decreased Stage IV GFR 15-29 Severely Decreased Stage V GFR <15 Very Little GFR Left ESRD GFR <15 on FELT TIPPING MACHINE TENDER Lab Order: CBC with Diff; SPEC'M 11/23/16 21:50 Test: WHITE BLOOD COUNT; Value: 8.1; Range: 4.0-10.0; Units: K/mm3; Status: F Test: RED BLOOD COUNT; Value: 4.20; Range: 4.30-6.10; Abnormal: Below low normal; Units: M/mm3; Status: F Test: HEMOGLOBIN; Value: 11.7; Range: 14.0-18.0; Abnormal: Below low normal; Units: g/dl; Status: F Test: HEMATOCRIT; Value: 34.9; Range: 42.0-52.0; Abnormal: Below low normal; Units: %; Status: F Test: MEAN CORPUSCULAR VOLUME; Value: 82.9; Range: 80.0-96.0; Units: fl; Status: F Test: MEAN CORPUSCULAR HEMOGLOBIN; Value: 27.9; Range: 27.0-33.0; Units: pg; Status: F Test: MEAN CORPUSCULAR HGB CONC; Value: 33.7; Range: 32.0-36.5; Units: g/dl; Status: F Test: RED CELL DISTRIBUTION WIDTH; Value: 12.7; Range: 11.5-14.5; Units: %; Status: F Test: PLATELET COUNT, AUTOMATED; Value: 118; Range: 150-450; Abnormal: Below low normal; Units: k/mm3; Status: F Test: NEUTROPHILS %; Value: 81.8; Range: 36.0-66.0; Abnormal: Above high normal; Units: %; Status: F Test: LYMPH %; Value: 10.4; Range: 24.0-44.0; Abnormal: Below low normal; Units: %; Status: F Test: MONO %; Value: 5.7; Range: 0.0-5.0; Abnormal: Above high normal; Units: %; Status: F Test: EOS %; Value: 0.3; Range: 0.0-3.0; Units: %; Status: F Test: BASO %; Value: 0.7; Range: 0.0-1.0; Units: %; Status: F Test: LARGE UNSTAINED CELL %; Value: 1.0; Range: 0.0-4.0; Units: %; Status: F Test: NEUTROPHILS #; Value: 6.6; Range: 1.8-7.7; Units: K/mm3; Status: F Test: LYMPH #; Value: 0.9; Range: 1.5-4.5; Abnormal: Below low normal; Units: K/mm3; Status: F Test: MONO #; Value: 0.5; Range: 0.0-0.8; Units: K/mm3; Status: F Test: EOS #; Value: 0.0; Range: 0.0-0.50; Units: K/mm3; Status: F Test: BASO #; Value: 0.1; Range: 0.0-0.2; Units: K/mm3; Status: F Test: LARGE UNSTAINED CELL #; Value: 0.1; Range: 0.0-0.4; Units: K/mm3; Status: F Lab Order: Cardiac Injury Profile; [facility]' 11/23/16 21:50 Test: CPK CREATINE PHOSPHOKINASE; Value: 318; Range: 39-308; Abnormal: Above high normal; Units: U/L; Status: F Test: CK-MB VALUE MASS; Value: 1.0; Range: 0.0-3.6; Units: NG/ML; Status: F Test: MB/CK RELATIVE INDEX; Value: 0.31; Range: < OR =4; Status: F Test Note: ; DIAGNOSIS CRITERIA MMB ng/ml Relative Index (RI) NON-AMI < or = 5 N/A [place] > 5 < or = 4 AMI > 5 > 4 Lab Order: Lipase; [facility] 11/23/16 21:50 Test: LIPASE; Value: 72; Range: 73-393; Abnormal: Below low normal; Units: U/L; Status: F Lab Order: Liver Profile; [facility] 11/23/16 21:50 Test: AST/SGOT; Value: 48; Range: 15-37; Abnormal: Above high normal; Units: U/L; Status: F Test: ALT/SGPT; Value: 37; Range: 12-78; Units: U/L; Status: F Test: ALKALINE PHOSPHATASE; Value: 126; Range: 45-117; Abnormal: Above high normal; Units: U/L; Status: F Test: BILIRUBIN,TOTAL; Value: 1.5; Range: 0.2-1.0; Abnormal: Above high normal; Units: MG/DL; Status: F Test: BILIRUBIN,DIRECT; Value: 0.4; Range: 0.0-0.2; Abnormal: Above high normal; Units: MG/DL; Status: F Test: TOTAL PROTEIN; Value: 7.5; Range: 6.4-8.2; Units: GM/DL; Status: F Test: ALBUMIN; Value: 3.4; Range: 3.2-5.2; Units: GM/DL; Status: F Test: ALBUMIN/GLOBULIN RATIO; Value: 0.83; Range: 1.00-1.93; Abnormal: Below low normal; Status: F Lab Order: Troponin; SPEC' 11/23/16 21:50 Test: TROPONIN I; Value: 0.07; Range: < 0.10; Units: NG/ML; Status: F Test Note: ; Troponin I Reference Interval for [employer] LOCI: 99th Percentile= 0.00-0.045 ng/ml Risk Stratification: <= 0.10 ng/ml Decreased Risk for Adverse Clinical Events. 0.10-1.50 ng/ml Increased Risk for Adverse Clinical Events. Evaluation of additional criterion and/or repeat testing in 2-6 hours is suggested to rule out myocardial damage. >= 1.50 ng/ml Indicative of Myocardial Injury. Lab Order: Venous Blood Gas (large pea green tube on ice); SPEC' 11/23/16 21:50 Test: VENOUS PH; Value: 7.394; Range: 7.330-7.430; Units: UNITS; Status: F Test: VENOUS PARTIAL PRESSURE CO2; Value: 39.6; Range: 38.0-50.0; Units: mmHg; Status: F Test: VENOUS PARTIAL PRESSURE O2; Value: 42.3; Range: 30.0-50.0; Units: mmHg; Status: F Test: VENOUS TOTAL CO2; Value: 24.9; Range: 24.0-28.0; Units: MEQ/L; Status: F Test: VENOUS HCO3; Value: 23.7; Range: 23.0-27.0; Units: MEQ/L; Status: F Test: VENOUS BASE EXCESS; Value: -1.1; Range: -2.0-2.0; Status: F Test: VENOUS STANDARD HCO3; Value: 23.2; Units: MEQ/L; Status: F Test: VENOUS O2 SATURATION; Value: 78.0; Range: 60.0-80.0; Units: %; Status: F Lab Order: Osmolality, Serum; SPEC' 11/23/16 21:50 Test: OSMOLALITY SERUM; Value: 293; Range: 275-295; Units: MOSM/KG; Status: F Radiology Order: CT ABD & PELVIS: IV Contrast Only Test: CT ABD & PELVIS: IV Contrast Only REASON FOR EXAMINATION: LUQ pain; ; CLINICAL HISTORY: Abdominal pain.; TECHNIQUE: Multiple axial, sagittal and coronal CT images were obtained through the abdomen and pelvi; s after administration of intravenous contrast material.; COMMENTS:; The liver is of uniform attenuation without mass or defect. There is no intra or extrahepatic biliary; ductal dilatation. Well defined hypodense lesion of the spleen. The gallbladder contains gallstones.; 6 x 4.5 cm peripherally calcified pancreatic tail cyst.; There is no evidence of adrenal mass. Both kidneys demonstrate prompt and equal nephrograms. There is; no evidence of renal or ureteral mass. No renal or ureteral calculi are identified. There is no hydr; oureter or hydronephrosis. 2.3 cm cyst of the right kidney.; No evidence for appendicitis. There is no bowel wall thickening. No evidence for small or large bowel; obstruction. There is no evidence of abdominal ascites or lymphadenopathy. Fluid-filled mildly thick; -walled small bowel compatible with mild enteritis versus ileus.; There is no evidence of intrinsic or extrinsic bladder mass. There is no pelvic ascites or lymphadeno; pita.; Images of the lung bases show no evidence of pleural or parenchymal mass. There are no pleural effusi; ons.; The bony structures are free of lytic or blastic lesions. Multilevel degenerative changes are seen in; volving the thoracolumbar spine. Scattered calcifications are seen involving the aorta and major bran; ches compatible with atherosclerosis.; Impression:; Cholelithiasis.; 6 x 4.5 cm peripherally calcified pancreatic tail cyst.; Fluid-filled mildly thick-walled small bowel compatible with mild enteritis versus ileus.; ; ; Outcome: 11/24 05:16 Discharge ordered by Provider. mm11 05:31 Discharge Assessment: Patient awake, alert and oriented x 3. No cognitive and/or tm5 functional deficits noted. Patient verbalized understanding of disposition instructions. patient administered narcotics - yes. Pt provided with safe discharge. The following High Risk Discharge criteria are identified: None. Discharged to home ambulatory. Condition: good Condition: stable Condition: improved. Discharge instructions given to patient, Instructed on discharge instructions, follow up and referral plans. medication usage, Demonstrated understanding of instructions, medications, Pt was receptive of discharge instructions/ teaching. Prescriptions given X 1. CT Study completed. Property :Personal belongings accompany Pt. 05:33 Patient left the ED. tm5 Signatures: Dispatcher [employer] EDMS Man Shirley, DO DO mm11 Judit Rivera, RN RN sls1 Gregoria Rider, Motor Vehicle Representative Unit Hiral De Leon,RN RN [id number] Sarahi Kwok, Reg Reg ks16 Wilson Gibbs, SQUARE SHEAR OPERATOR SQUARE SHEAR OPERATOR laurynv Tsering Bowen,RN RN tm5 MTDD
--- NOTE | 2016-11-24 05:34 | EDDOCDS ---
Physician Documentation [facility] Name: Poppy Baptiste Age: 45 yrs Sex: Male : 1970 Arrival Date: 11/23/2016 Time: 20:21 Bed OBSERVATION Private MD: NO PRIMARY PHYSICIAN, . Disposition: 11/24/16 05:16 Discharged to Home/Self Care. Impression: Noninfective gastroenteritis and colitis, unspecified. - Condition is Stable. - Discharge Instructions: Viral Gastroenteritis, Viral Gastroenteritis, [id number]. - Prescriptions for Zofran 4 mg Oral Tablet - take 1 tablet by ORAL route 4 times per day As needed; 10 tablet. - Medication Reconciliation, Local Pharmacy Hours form. - Follow up: Private Physician; When: Call to arrange an appointment; Reason: Continuance of care. - Problem is an acute exacerbation. - Symptoms have improved. - Notes: YOUR CT SHOWS MILD INFLAMMATION OF YOUR INTESTINES THAT INDICATES THAT YOU HAVE A VIRAL INFECTION OF THE INTESTINES. DRINK PLENTY OF FLUIDS AND [facility]: - Allergies: Aspirinhives; tylenolhives; - Home Meds: 1. Lantus 100 unit/mL Sub-Q soln 30 unit nightly 2. Humalog 100 unit/mL Sub-Q soln 22 unit three times a day 3. Lisinopril Oral 4. metformin 500 mg Oral tab 2 times per day 5. omeprazole 40 mg Oral cpDR 1 cap once daily 6. Reglan 5 mg Oral tab 1 tab once daily 7. Creon 12,000-38,000 -60,000 unit oral cpDR 1 caps 3 times per day 8. nortriptyline 25 mg Oral cap nightly - PMHx: Diabetes - IDDM: controlled; gall stones; Hypertension; Pancreatitis; pseudocyst on pancreas; - PSHx: Pseudo cyst removed; toes amputated; - Social history: Smoking status: Patient uses tobacco products, current every day smoker. No barriers to communication noted. - Family history: Not pertinent. - : The pt / caregiver states he / she is not on anticoagulants. Home medication list is obtained from pill bottles. - Exposure Risk Screening:: None identified. Vital Signs: 11/23 20:32 BP 118 / 79; Pulse 119; Resp 20; Temp 100.8(O); Pulse Ox 96% on R/A; Weight 87.09 kg / tm5 192 lbs; Height 5 ft. 11 in. (180.34 cm); Pain 8/10; 21:35 BP 118 / 78 (auto/); tm5 21:35 Pulse 122 MON; Pulse Ox 100% ; tm5 21:43 BP 127 / 83 (auto/); tm5 21:43 Pulse 116 MON; Resp 20 S; Pulse Ox 100% on R/A; tm5 21:43 BP 129 / 87 (auto/); tm5 21:44 Pulse 118 MON; Pulse Ox 100% ; tm5 11/24 00:18 BP 122 / 58; Pulse 112; Resp 18; Temp 99.6(O); Pulse Ox 98% on R/A; tm5 01:06 BP 129 / 80 (auto/); tm5 01:06 Pulse 116 MON; Resp 18 S; Pulse Ox 95% on R/A; tm5 05:31 BP 122 / 78; Pulse 74; Resp 20; Temp 99.0(O); Pulse Ox 99% on R/A; Pain 0/10; tm5 11/23 20:32 Body Mass Index 26.78 (87.09 kg, 180.34 cm) tm5 MDM: 11/23 20:26 ECG WITH READING ER PHYS+CARDIAG ordered. EDMS 21:05 NS 0.9% 1000 ml IV at bolus once ordered. mm11 21:05 Ondansetron 4 mg IVP once ordered. mm11 21:05 Undress patient appropriately for examination ordered. mm11 21:07 Amylase Ordered. EDMS 21:07 Basic Metabolic Profile Ordered. EDMS 21:07 CBC with Diff Ordered. EDMS 21:07 Cardiac Injury Profile Ordered. EDMS 21:07 Lipase Ordered. EDMS 21:07 Liver Profile Ordered. EDMS 21:07 Troponin Ordered. EDMS 21:07 Venous Blood Gas (large pea green tube on ice) Ordered. EDMS 21:07 Osmolality, Serum Ordered. EDMS 21:07 NOTHING BY MOUTH+DIET ordered. EDMS 21:30 morphine 4 mg IVP every 30 minutes; Document pain score/vitals after each dose (Hold if mm11 SBP < 90mmHg) x2 ordered. 21:39 Chest, 1 view Ordered. EDMS 21:40 The patient was assigned to Observation Status due to uncertainty of mm11 diagnosis/disposition, and remained under my care. Initial Observation Assessment: The working diagnosis being considered, that nessecitates further diagnostic evaluation and/or treatment, includes Pancreatitis, SBO, PNA, ACS The diagnostic and treatment plan, to secure diagnosis and/or to stabilize condition to procure safe disposition, includes BW, CT, Reval for pain. 22:19 CBC with Diff Reviewed. mm11 22:19 Venous Blood Gas (large pea green tube on ice) Reviewed. mm11 22:39 Basic Metabolic Profile Reviewed. mm11 22:39 Cardiac Injury Profile Reviewed. mm11 22:39 Lipase Reviewed. mm11 22:39 Liver Profile Reviewed. mm11 22:39 Amylase Reviewed. mm11 22:39 Troponin Reviewed. mm11 22:39 Osmolality, Serum Reviewed. mm11 23:56 CT ABD & PELVIS: IV Contrast Only Ordered. EDVT 11/24 00:55 Financial registration complete. [email or web address] 01:01 [facility] Payment Agreement was scanned into [employer] and attached to record. [email or web address] 01:13 GI Cocktail - (Alum-Mag Hydroxide-Simeth 30 ml, Lidocaine 10 ml, Hyoscyamine 10 ml) PO mm11 once; Pre-mixed 50mL unit dose ordered. 04:05 Fluid Challenge ordered. tm5 Administered Medications: 11/23 21:30 Drug: NS 0.9% 1000 ml [sodium chloride 0.9 % intravenous solution] Route: IV; Rate: sls1 bolus; Site: left forearm; 22:59 Follow up: IV Status: Completed infusion; IV Intake: 1000ml tm5 21:31 Drug: Ondansetron 4 mg [ondansetron HCl 2 mg/mL intravenous solution (2 mL)] Route: sls1 IVP; Site: left forearm; 22:00 Follow up: Response: Nausea is decreased; No Adverse Reaction tm5 21:45 Drug: morphine 4 mg [morphine 4 mg/mL intravenous cartridge (1 mL)] Route: IVP; Site: tm5 left forearm; 22:15 Follow up: Response: No Adverse Reaction; Pain is decreased tm5 22:59 Drug: morphine 4 mg [morphine 4 mg/mL intravenous cartridge (1 mL)] Route: IVP; Site: tm5 left forearm; 23:30 Follow up: Response: No Adverse Reaction; Pain is decreased tm5 11/24 01:14 Drug: GI Cocktail - (Alum-Mag Hydroxide-Simeth Suspension 225 mg-200 mg-25 mg/5 mL 30 tm5 ml, Lidocaine Liquid 2 % 10 ml, Hyoscyamine Liquid 10 ml) Route: PO; 04:07 Follow up: Response: No Adverse Reaction; Pain is decreased tm5 Signatures: Dispatcher [employer] EDMan Ma, DO mm11 Sarahi Kwok, Reg Reg ks16 Tsering Bowen RN RN tm5 Judit Rivera RN sls1 The chart was reviewed and I authenticate all verbal orders and agree with the evaluation and treatment provided.Corrections: (The following items were deleted from the chart) 11/23 21:39 21:07 Chest, 2 view (PA\E\Lat)+XR ordered. EDMS EDMS Attachments: 11/24 01:01 [facility] Payment Agreement [email or web address] MTDD
--- NOTE | 2016-11-24 15:47 | ECGEPIP ---
Stationary ECG Study [facility] - ED Test Date: 2016-11-23 Pat Name: VITA PAULA Department: Room: - Gender: M Stitching Machine Operator: katya : 1970 Requested By: HAROLDO Sy Order Number: [id number] Reading MD: Jelly Anderson Measurements Intervals [place] Rate: 120 P: 87 TX: 158 QRS: 70 QRSD: 80 T: 91 QT: 297 QTc: 421 Interpretive Statements SINUS TACHYCARDIA NONSPECIFIC T-WAVE ABNORMALITY ABNORMAL RHYTHM ECG INCREASED RATE 11/05/16 Electronically Signed On 11-24-2016 15:46:34 EST by Jelly Anderson
--- NOTE | 2016-11-25 11:09 | REP ---
Portable chest, single AP view, patient sitting: Comparison is 11/03/2016. The lung chapa are clear. Cardiac size is normal. The casie, mediastinum, bony thorax unremarkable. The faintly visible rim calcified pancreatic tail cyst noted in the left upper quadrant beneath the left hemidiaphragm on the comparison study excluded at the inferior film margin on the current study. Impression: Negative portable chest. Signed by Talat Dixon MD 11/24/2016 09:09 A
--- NOTE | 2016-11-26 06:34 | EDDOCDS ---
Physician Documentation [facility] Name: Poppy Baptiste Age: 45 yrs Sex: Male : 1970 Arrival Date: 11/23/2016 Time: 20:21 Bed OBSERVATION Private MD: NO PRIMARY PHYSICIAN, . Disposition: 11/24/16 05:16 Discharged to Home/Self Care. Impression: Noninfective gastroenteritis and colitis, unspecified. - Condition is Stable. - Discharge Instructions: Viral Gastroenteritis, Viral Gastroenteritis, [id number]. - Prescriptions for Zofran 4 mg Oral Tablet - take 1 tablet by ORAL route 4 times per day As needed; 10 tablet. - Medication Reconciliation, Local Pharmacy Hours form. - Follow up: Private Physician; When: Call to arrange an appointment; Reason: Continuance of care. - Problem is an acute exacerbation. - Symptoms have improved. - Notes: YOUR CT SHOWS MILD INFLAMMATION OF YOUR INTESTINES THAT INDICATES THAT YOU HAVE A VIRAL INFECTION OF THE INTESTINES. DRINK PLENTY OF FLUIDS AND [facility]: - Allergies: Aspirinhives; tylenolhives; - Home Meds: 1. Lantus 100 unit/mL Sub-Q soln 30 unit nightly 2. Humalog 100 unit/mL Sub-Q soln 22 unit three times a day 3. Lisinopril Oral 4. metformin 500 mg Oral tab 2 times per day 5. omeprazole 40 mg Oral cpDR 1 cap once daily 6. Reglan 5 mg Oral tab 1 tab once daily 7. Creon 12,000-38,000 -60,000 unit oral cpDR 1 caps 3 times per day 8. nortriptyline 25 mg Oral cap nightly - PMHx: Diabetes - IDDM: controlled; gall stones; Hypertension; Pancreatitis; pseudocyst on pancreas; - PSHx: Pseudo cyst removed; toes amputated; - Social history: Smoking status: Patient uses tobacco products, current every day smoker. No barriers to communication noted. - Family history: Not pertinent. - : The pt / caregiver states he / she is not on anticoagulants. Home medication list is obtained from pill bottles. - Exposure Risk Screening:: None identified. Vital Signs: 11/23 20:32 BP 118 / 79; Pulse 119; Resp 20; Temp 100.8(O); Pulse Ox 96% on R/A; Weight 87.09 kg / tm5 192 lbs; Height 5 ft. 11 in. (180.34 cm); Pain 8/10; 21:35 BP 118 / 78 (auto/); tm5 21:35 Pulse 122 MON; Pulse Ox 100% ; tm5 21:43 BP 127 / 83 (auto/); tm5 21:43 Pulse 116 MON; Resp 20 S; Pulse Ox 100% on R/A; tm5 21:43 BP 129 / 87 (auto/); tm5 21:44 Pulse 118 MON; Pulse Ox 100% ; tm5 11/24 00:18 BP 122 / 58; Pulse 112; Resp 18; Temp 99.6(O); Pulse Ox 98% on R/A; tm5 01:06 BP 129 / 80 (auto/); tm5 01:06 Pulse 116 MON; Resp 18 S; Pulse Ox 95% on R/A; tm5 05:31 BP 122 / 78; Pulse 74; Resp 20; Temp 99.0(O); Pulse Ox 99% on R/A; Pain 0/10; tm5 11/23 20:32 Body Mass Index 26.78 (87.09 kg, 180.34 cm) tm5 MDM: 11/23 20:26 ECG WITH READING ER PHYS+CARDIAG ordered. EDMS 21:05 NS 0.9% 1000 ml IV at bolus once ordered. mm11 21:05 Ondansetron 4 mg IVP once ordered. mm11 21:05 Undress patient appropriately for examination ordered. mm11 21:07 Amylase Ordered. EDMS 21:07 Basic Metabolic Profile Ordered. EDMS 21:07 CBC with Diff Ordered. EDMS 21:07 Cardiac Injury Profile Ordered. EDMS 21:07 Lipase Ordered. EDMS 21:07 Liver Profile Ordered. EDMS 21:07 Troponin Ordered. EDMS 21:07 Venous Blood Gas (large pea green tube on ice) Ordered. EDMS 21:07 Osmolality, Serum Ordered. EDMS 21:07 NOTHING BY MOUTH+DIET ordered. EDMS 21:30 morphine 4 mg IVP every 30 minutes; Document pain score/vitals after each dose (Hold if mm11 SBP < 90mmHg) x2 ordered. 21:39 Chest, 1 view Ordered. EDMS 21:40 The patient was assigned to Observation Status due to uncertainty of mm11 diagnosis/disposition, and remained under my care. Initial Observation Assessment: The working diagnosis being considered, that nessecitates further diagnostic evaluation and/or treatment, includes Pancreatitis, SBO, PNA, ACS The diagnostic and treatment plan, to secure diagnosis and/or to stabilize condition to procure safe disposition, includes BW, CT, Reval for pain. 22:19 CBC with Diff Reviewed. mm11 22:19 Venous Blood Gas (large pea green tube on ice) Reviewed. mm11 22:39 Basic Metabolic Profile Reviewed. mm11 22:39 Cardiac Injury Profile Reviewed. mm11 22:39 Lipase Reviewed. mm11 22:39 Liver Profile Reviewed. mm11 22:39 Amylase Reviewed. mm11 22:39 Troponin Reviewed. mm11 22:39 Osmolality, Serum Reviewed. mm11 23:56 CT ABD & PELVIS: IV Contrast Only Ordered. EDMS 11/24 00:55 Financial registration complete. [email or web address] 01:01 [facility] Payment Agreement was scanned into [employer] ([employer]) and attached to record. [email or web address] 01:13 GI Cocktail - (Alum-Mag Hydroxide-Simeth 30 ml, Lidocaine 10 ml, Hyoscyamine 10 ml) PO mm11 once; Pre-mixed 50mL unit dose ordered. 04:05 Fluid Challenge ordered. tm5 18:35 T-Sheet-- Draft Copy was scanned into [employer] ([employer]) and attached to record. klr 19:27 Radiology Report was scanned into [employer] ([employer]) and attached to record. kf3 19:27 ECG/EKG was scanned into [employer] ([employer]) and attached to record. kf3 11/25 00:28 ED course: certified letter sent to pt re formal read of ct abd/p for fu. no pcp ml listed. mlg. Administered Medications: 11/23 21:30 Drug: NS 0.9% 1000 ml [sodium chloride 0.9 % intravenous solution] Route: IV; Rate: sls1 bolus; Site: left forearm; 22:59 Follow up: IV Status: Completed infusion; IV Intake: 1000ml tm5 21:31 Drug: Ondansetron 4 mg [ondansetron HCl 2 mg/mL intravenous solution (2 mL)] Route: sls1 IVP; Site: left forearm; 22:00 Follow up: Response: Nausea is decreased; No Adverse Reaction tm5 21:45 Drug: morphine 4 mg [morphine 4 mg/mL intravenous cartridge (1 mL)] Route: IVP; Site: tm5 left forearm; 22:15 Follow up: Response: No Adverse Reaction; Pain is decreased tm5 22:59 Drug: morphine 4 mg [morphine 4 mg/mL intravenous cartridge (1 mL)] Route: IVP; Site: tm5 left forearm; 23:30 Follow up: Response: No Adverse Reaction; Pain is decreased tm5 11/24 01:14 Drug: GI Cocktail - (Alum-Mag Hydroxide-Simeth Suspension 225 mg-200 mg-25 mg/5 mL 30 tm5 ml, Lidocaine Liquid 2 % 10 ml, Hyoscyamine Liquid 10 ml) Route: PO; 04:07 Follow up: Response: No Adverse Reaction; Pain is decreased tm5 Signatures: Dispatcher [employer] EDMS Viry-Margy Mcdonnell MD MD Man Shirley, DO mm11 Tate Le, Reg Reg kf3 Sarahi Kwok, Reg Reg ks16 Flor Zavala Tonya, RN RN tm5 Judit Rivera RN sls1 The chart was reviewed and I authenticate all verbal orders and agree with the evaluation and treatment provided.Corrections: (The following items were deleted from the chart) 11/23 21:39 21:07 Chest, 2 view (PA\E\Lat)+XR ordered. EDMS EDMS Attachments: 11/24 01:01 [facility] Payment Agreement [email or web address] 18:35 T-Sheet-- Draft Copy klr 19:27 ECG/EKG kf3 Chart Complete MTDD
--- NOTE | 2016-11-26 06:34 | EDDOCDS ---
Nurse's Notes [facility] Name: Vita Paula Age: 45 yrs Sex: Male : 1970 Arrival Date: 11/23/2016 Time: 20:21 Bed OBSERVATION Private MD: NO PRIMARY PHYSICIAN, . Diagnosis: Noninfective gastroenteritis and colitis, unspecified Presentation: 11/23 20:24 Presenting complaint: EMS states: per EMS pt has had reproducable CP for the past 36 tm5 hours now, BG FS 142, #18 Left forearm, no ASA given, left sided abdominal pain also, VSS, Sinus tach per EMS, no NTG given. Aspirin was not taken prior to arrival. Adult Sepsis Screening: The patient does not have new or worsening altered mentation. Patient's respiratory rate is less than 22. Systolic blood pressure is greater than 100. Patient has a qSOFA score of 0- Negative Sepsis Screen. Suicide/Homicide risk assessment- the patient denies having any suicidal and/or homicidal ideations and does not present with any other emotional, behavioral or mental health complaints. Status: Patient is not a auto servicer or dependent. Transition of care: patient was not received from another setting of care. 20:24 Acuity: FRANCESCO Level 3 tm5 20:24 Method Of Arrival: Ambulance tm5 Triage Assessment: 20:32 General: Appears in no apparent distress, Behavior is appropriate for age, cooperative. tm5 Pain: Location: chest, left upper quadrant and left lower quadrant Pain currently is 8 out of 10 on a pain scale. Quality of pain is described as aching, pressure. Pt Declines HIV testing. The patient is triaged at the bedside. See Assessment in Nurses Notes section of ED record. Neurological: Level of Consciousness is awake, alert, Oriented to person, place, time. Cardiovascular: Rhythm is sinus tachycardia No ectopy. Chest pain is described as mild, quality is burning, pressure, radiates Does not radiate. episodes are intermittent began 36 hours ago. Respiratory: Airway is patent Respiratory effort is even, unlabored, Respiratory pattern is regular, symmetrical, Breath sounds are clear bilaterally. GI: Abdomen is flat, non- distended Bowel sounds present X 4 quads. Abd is soft X 4 quads Abd is tender to palpation in left upper quadrant and left lower quadrant. : No deficits noted. Derm: Skin is pink, warm & dry. normal. Historical: - Allergies: Aspirinhives; tylenolhives; - Home Meds: 1. Lantus 100 unit/mL Sub-Q soln 30 unit nightly 2. Humalog 100 unit/mL Sub-Q soln 22 unit three times a day 3. Lisinopril Oral 4. metformin 500 mg Oral tab 2 times per day 5. omeprazole 40 mg Oral cpDR 1 cap once daily 6. Reglan 5 mg Oral tab 1 tab once daily 7. Creon 12,000-38,000 -60,000 unit oral cpDR 1 caps 3 times per day 8. nortriptyline 25 mg Oral cap nightly - PMHx: Diabetes - IDDM: controlled; gall stones; Hypertension; Pancreatitis; pseudocyst on pancreas; - PSHx: Pseudo cyst removed; toes amputated; - Social history: Smoking status: Patient uses tobacco products, current every day smoker. No barriers to communication noted. - Family history: Not pertinent. - : The pt / caregiver states he / she is not on anticoagulants. Home medication list is obtained from pill bottles. - Exposure Risk Screening:: None identified. Screenin:36 Screening information is obtained from the patient. Fall risk: No risks identified. tm5 Assistance ADL's: requires no assistance with activities of daily living. Abuse/DV Screen: The patient / caregiver reports he/she is: not in a situation that causes fear, pain or injury. Nutritional screening: No deficits noted. Advance Directives: Currently, there is no health care proxy. There is no active DNR order. home support is adequate. Assessment: 20:36 General: see triage assessment . Cardiovascular: Rhythm is sinus tachycardia. tm5 21:37 General: Pt returned from Xray, per medical laboratory technician pt almost " fell onto floor" was assisted sls1 back to bed, pt reports " I almost lost consciousness" vital signs obtained, provider aware. 22:58 Reassessment: pt asking for another dose of pain medications at this time, complains of tm5 Left sided abdominal pain 05/05, denies Nausea at this time. 11/24 00:17 Reassessment: Patient appears in no apparent distress at this time. Patient states tm5 symptoms have improved. pt resting with eyes closed, resp easy, no s/s of any distress. 00:17 Cardiovascular: Rhythm is sinus rhythm No ectopy. tm5 01:05 General: pt complains of Left sided abdominal pain, MD aware orders received . tm5 04:12 General: pt provided with Hortensia sandor for Fluid challenge. tm5 05:31 Reassessment: Patient appears in no apparent distress at this time. Patient states tm5 symptoms have improved. pt consumed hortensia sandor without any complaints . Vital Signs: 11/23 20:32 BP 118 / 79; Pulse 119; Resp 20; Temp 100.8(O); Pulse Ox 96% on R/A; Weight 87.09 kg; tm5 Height 5 ft. 11 in. (180.34 cm); Pain 8/10; 21:35 BP 118 / 78 (auto/); tm5 21:35 Pulse 122 MON; Pulse Ox 100% ; tm5 21:43 BP 127 / 83 (auto/); tm5 21:43 Pulse 116 MON; Resp 20 S; Pulse Ox 100% on R/A; tm5 21:43 BP 129 / 87 (auto/); tm5 21:44 Pulse 118 MON; Pulse Ox 100% ; tm5 11/24 00:18 BP 122 / 58; Pulse 112; Resp 18; Temp 99.6(O); Pulse Ox 98% on R/A; tm5 01:06 BP 129 / 80 (auto/); tm5 01:06 Pulse 116 MON; Resp 18 S; Pulse Ox 95% on R/A; tm5 05:31 BP 122 / 78; Pulse 74; Resp 20; Temp 99.0(O); Pulse Ox 99% on R/A; Pain 0/10; tm5 11/23 20:32 Body Mass Index 26.78 (87.09 kg, 180.34 cm) tm5 Vitals: 11/23 20:32 Log In Time N/A - ambulance arrival. tm5 ED Course: 20:22 Hiral Sauceda,ANTONIO is Primary Nurse. [facility] 20:22 Patient visited by Gregoria Rider, Electrical Instrument Technician. jl 20:22 NO PRIMARY PHYSICIAN, . is Private Physician. jl 20:22 Patient moved to [facility] 20:24 Patient visited by Tsering Bowen RN. tm5 20:28 Triage Initiated tm5 20:36 Awaiting ED physician evaluation. tm5 20:36 The patient / caregiver is instructed regarding the plan of care and ED course. Cardiac tm5 monitor on. Pulse ox on. NIBP on. Warm blanket given. Pillow given. 20:36 Maintain field IV. Dressing intact. Good blood return noted. Site clean & dry. Gauge & tm5 site: #18 left forearm . EKG done. (by ED staff). Reviewed by Haroldo Shirley DO. 20:37 EKG done. (by ED staff). Reviewed by Haroldo Shirley DO. jmv 20:38 Patient visited by Wilson Gibbs PCA. jmv 20:38 Pt greeted and oriented to ED. Patient advised of names of staff involved in care, [facility] location of call nam, wait times and NPO status. Patient has correct armband on for positive identification. Placed in gown. Bed in low position. Call light in reach. Side rails up X2. 20:39 Patient visited by Wilson Gibbs PCA. jmv 20:49 Haroldo Shirley DO is Attending Physician. mm11 20:49 Patient visited by Haroldo Shirley DO. mm11 21:04 Patient visited by Haroldo Shirley DO. mm11 21:05 Patient moved to OBSERVATION mm11 21:06 Patient moved to 4 mm11 21:37 Patient moved to OBSERVATION mm11 21:39 Patient visited by Judit Rivera RN. sls1 21:51 Patient visited by Tsering Bowen,ANTONIO. tm5 21:52 Osmolality, Serum Sent. tm5 21:52 Venous Blood Gas (large pea green tube on ice) Sent. tm5 21:52 Amylase Sent. tm5 21:52 Basic Metabolic Profile Sent. tm5 21:52 CBC with Diff Sent. tm5 21:52 Cardiac Injury Profile Sent. tm5 21:52 Lipase Sent. tm5 21:53 Liver Profile Sent. tm5 21:53 Troponin Sent. tm5 22:32 Patient visited by Tsering Bowen,ANTONIO. tm5 22:57 Primary Nurse role handed off by Hiral Sauceda,ANTONIO ms18 22:58 Patient visited by Tsering Bowen,ANTONIO. tm5 11/24 00:17 Patient visited by Tsering Bowen,ANTONIO. tm5 00:55 Patient visited by Tsering Bowen,ANTONIO. tm5 00:[address] tm5 01:01 PENDING SALE TO [facility] Payment Agreement was scanned into [employer] and attached to record. ks16 01:14 Patient moved back from [address]. tm5 02:47 CT ABD & PELVIS: IV Contrast Only Returned. EDMS 05:31 Patient visited by Tsering Bowen RN. tm5 05:31 Discontinued lock intact, bleeding controlled, pressure dressing applied, No tm5 redness/swelling at site. No procedures done that require assistance. 16:03 EKG-ADULT Returned. EDMS 18:35 T-Sheet-- Draft Copy was scanned into [employer] and attached to record. klr 19:27 Radiology Report was scanned into [employer] and attached to record. kf3 19:27 ECG/EKG was scanned into [employer] and attached to record. kf3 11/25 11:19 Chest, 1 view Returned. EDMS Administered Medications: 11/23 21:30 Drug: NS 0.9% 1000 ml [sodium chloride 0.9 % intravenous solution] Route: IV; Rate: sls1 bolus; Site: left forearm; 22:59 Follow up: IV Status: Completed infusion; IV Intake: 1000ml tm5 21:31 Drug: Ondansetron 4 mg [ondansetron HCl 2 mg/mL intravenous solution (2 mL)] Route: sls1 IVP; Site: left forearm; 22:00 Follow up: Response: Nausea is decreased; No Adverse Reaction tm5 21:45 Drug: morphine 4 mg [morphine 4 mg/mL intravenous cartridge (1 mL)] Route: IVP; Site: tm5 left forearm; 22:15 Follow up: Response: No Adverse Reaction; Pain is decreased tm5 22:59 Drug: morphine 4 mg [morphine 4 mg/mL intravenous cartridge (1 mL)] Route: IVP; Site: tm5 left forearm; 23:30 Follow up: Response: No Adverse Reaction; Pain is decreased tm5 11/24 01:14 Drug: GI Cocktail - (Alum-Mag Hydroxide-Simeth Suspension 225 mg-200 mg-25 mg/5 mL 30 tm5 ml, Lidocaine Liquid 2 % 10 ml, Hyoscyamine Liquid 10 ml) Route: PO; 04:07 Follow up: Response: No Adverse Reaction; Pain is decreased tm5 Intake: 11/23 22:59 IV: 1000.00ml; Total: 1000.00ml. tm5 Order Results: Lab Order: Amylase; SPEC'M 11/23/16 21:50 Test: AMYLASE; Value: 42; Range: 25-115; Units: U/L; Status: F Lab Order: Basic Metabolic Profile; [facility] 11/23/16 21:50 Test: GLUCOSE, FASTING; Value: 127; Range: 70-105; Abnormal: Above high normal; Units: MG/DL; Status: F Test: BLOOD UREA NITROGEN; Value: 14; Range: 7-18; Units: MG/DL; Status: F Test: CREATININE FOR GFR; Value: 1.10; Range: 0.70-1.30; Units: MG/DL; Status: F Test: SODIUM LEVEL; Range: 136-145; Units: MEQ/L; Status: I Test: POTASSIUM SERUM; Range: 3.5-5.1; Units: MEQ/L; Status: I Test: CHLORIDE LEVEL; Range: 98-107; Units: MEQ/L; Status: I Test: CARBON DIOXIDE LEVEL; Range: 21-32; Units: MEQ/L; Status: I Test: ANION GAP; Range: 8-16; Units: MEQ/L; Status: I Test: CALCIUM LEVEL; Range: 8.5-10.1; Units: MG/DL; Status: I Test: GLOMERULAR FILTRATION RATE; Value: > 60.0; Range: >60; Status: F Test: SODIUM LEVEL; Value: 139; Range: 136-145; Units: MEQ/L; Status: F Test: POTASSIUM SERUM; Value: 3.3; Range: 3.5-5.1; Abnormal: Below low normal; Units: MEQ/L; Status: F Test: CHLORIDE LEVEL; Value: 101; Range: 98-107; Units: MEQ/L; Status: F Test: CARBON DIOXIDE LEVEL; Value: 28; Range: 21-32; Units: MEQ/L; Status: F Test: ANION GAP; Value: 10; Range: 8-16; Units: MEQ/L; Status: F Test: CALCIUM LEVEL; Value: 8.0; Range: 8.5-10.1; Abnormal: Below low normal; Units: MG/DL; Status: F Test Note: ; Units are mL/min/1.73 m2 Chronic Kidney Disease Staging per NKF: Stage I & II GFR >=60 Normal to Mildly Decreased Stage III GFR 30-59 Moderately Decreased Stage IV GFR 15-29 Severely Decreased Stage V GFR <15 Very Little GFR Left ESRD GFR <15 on [employer]CIAL [employer] SALES REPRESENTATIVE Lab Order: CBC with Diff; SPEC'M 11/23/16 21:50 Test: WHITE BLOOD COUNT; Value: 8.1; Range: 4.0-10.0; Units: K/mm3; Status: F Test: RED BLOOD COUNT; Value: 4.20; Range: 4.30-6.10; Abnormal: Below low normal; Units: M/mm3; Status: F Test: HEMOGLOBIN; Value: 11.7; Range: 14.0-18.0; Abnormal: Below low normal; Units: g/dl; Status: F Test: HEMATOCRIT; Value: 34.9; Range: 42.0-52.0; Abnormal: Below low normal; Units: %; Status: F Test: MEAN CORPUSCULAR VOLUME; Value: 82.9; Range: 80.0-96.0; Units: fl; Status: F Test: MEAN CORPUSCULAR HEMOGLOBIN; Value: 27.9; Range: 27.0-33.0; Units: pg; Status: F Test: MEAN CORPUSCULAR HGB CONC; Value: 33.7; Range: 32.0-36.5; Units: g/dl; Status: F Test: RED CELL DISTRIBUTION WIDTH; Value: 12.7; Range: 11.5-14.5; Units: %; Status: F Test: PLATELET COUNT, AUTOMATED; Value: 118; Range: 150-450; Abnormal: Below low normal; Units: k/mm3; Status: F Test: NEUTROPHILS %; Value: 81.8; Range: 36.0-66.0; Abnormal: Above high normal; Units: %; Status: F Test: LYMPH %; Value: 10.4; Range: 24.0-44.0; Abnormal: Below low normal; Units: %; Status: F Test: MONO %; Value: 5.7; Range: 0.0-5.0; Abnormal: Above high normal; Units: %; Status: F Test: EOS %; Value: 0.3; Range: 0.0-3.0; Units: %; Status: F Test: BASO %; Value: 0.7; Range: 0.0-1.0; Units: %; Status: F Test: LARGE UNSTAINED CELL %; Value: 1.0; Range: 0.0-4.0; Units: %; Status: F Test: NEUTROPHILS #; Value: 6.6; Range: 1.8-7.7; Units: K/mm3; Status: F Test: LYMPH #; Value: 0.9; Range: 1.5-4.5; Abnormal: Below low normal; Units: K/mm3; Status: F Test: MONO #; Value: 0.5; Range: 0.0-0.8; Units: K/mm3; Status: F Test: EOS #; Value: 0.0; Range: 0.0-0.50; Units: K/mm3; Status: F Test: BASO #; Value: 0.1; Range: 0.0-0.2; Units: K/mm3; Status: F Test: LARGE UNSTAINED CELL #; Value: 0.1; Range: 0.0-0.4; Units: K/mm3; Status: F Lab Order: Cardiac Injury Profile; [facility] 11/23/16 21:50 Test: CPK CREATINE PHOSPHOKINASE; Value: 318; Range: 39-308; Abnormal: Above high normal; Units: U/L; Status: F Test: CK-MB VALUE MASS; Value: 1.0; Range: 0.0-3.6; Units: NG/ML; Status: F Test: MB/CK RELATIVE INDEX; Value: 0.31; Range: < OR =4; Status: F Test Note: ; DIAGNOSIS CRITERIA MMB ng/ml Relative Index (RI) NON-AMI < or = 5 N/A [place] > 5 < or = 4 AMI > 5 > 4 Lab Order: Lipase; [facility] 11/23/16 21:50 Test: LIPASE; Value: 72; Range: 73-393; Abnormal: Below low normal; Units: U/L; Status: F Lab Order: Liver Profile; [facility] 11/23/16 21:50 Test: AST/SGOT; Value: 48; Range: 15-37; Abnormal: Above high normal; Units: U/L; Status: F Test: ALT/SGPT; Value: 37; Range: 12-78; Units: U/L; Status: F Test: ALKALINE PHOSPHATASE; Value: 126; Range: 45-117; Abnormal: Above high normal; Units: U/L; Status: F Test: BILIRUBIN,TOTAL; Value: 1.5; Range: 0.2-1.0; Abnormal: Above high normal; Units: MG/DL; Status: F Test: BILIRUBIN,DIRECT; Value: 0.4; Range: 0.0-0.2; Abnormal: Above high normal; Units: MG/DL; Status: F Test: TOTAL PROTEIN; Value: 7.5; Range: 6.4-8.2; Units: GM/DL; Status: F Test: ALBUMIN; Value: 3.4; Range: 3.2-5.2; Units: GM/DL; Status: F Test: ALBUMIN/GLOBULIN RATIO; Value: 0.83; Range: 1.00-1.93; Abnormal: Below low normal; Status: F Lab Order: Troponin; SPEC'M 11/23/16 21:50 Test: TROPONIN I; Value: 0.07; Range: < 0.10; Units: NG/ML; Status: F Test Note: ; Troponin I Reference Interval for [employer] LOCI: 99th Percentile= 0.00-0.045 ng/ml Risk Stratification: <= 0.10 ng/ml Decreased Risk for Adverse Clinical Events. 0.10-1.50 ng/ml Increased Risk for Adverse Clinical Events. Evaluation of additional criterion and/or repeat testing in 2-6 hours is suggested to rule out myocardial damage. >= 1.50 ng/ml Indicative of Myocardial Injury. Lab Order: Venous Blood Gas (large pea green tube on ice); SPEC'M 11/23/16 21:50 Test: VENOUS PH; Value: 7.394; Range: 7.330-7.430; Units: UNITS; Status: F Test: VENOUS PARTIAL PRESSURE CO2; Value: 39.6; Range: 38.0-50.0; Units: mmHg; Status: F Test: VENOUS PARTIAL PRESSURE O2; Value: 42.3; Range: 30.0-50.0; Units: mmHg; Status: F Test: VENOUS TOTAL CO2; Value: 24.9; Range: 24.0-28.0; Units: MEQ/L; Status: F Test: VENOUS HCO3; Value: 23.7; Range: 23.0-27.0; Units: MEQ/L; Status: F Test: VENOUS BASE EXCESS; Value: -1.1; Range: -2.0-2.0; Status: F Test: VENOUS STANDARD HCO3; Value: 23.2; Units: MEQ/L; Status: F Test: VENOUS O2 SATURATION; Value: 78.0; Range: 60.0-80.0; Units: %; Status: F Lab Order: Osmolality, Serum; SPEC'M 11/23/16 21:50 Test: OSMOLALITY SERUM; Value: 293; Range: 275-295; Units: MOSM/KG; Status: F Radiology Order: EKG-ADULT Test: EKG-ADULT REASON FOR EXAMINATION: Chest Pain; Stationary ECG Study; [facility] ED; ; Test Date: 2016-11-23; Pat Name: VITA PAULA Department:; Room: -; Gender: M Train Crew Member: katya; : 1970 Requested By: HAROLDO Sy; Order Number: [id number] Reading MD: Jelly Anderson; Measurements; Intervals [place]; Rate: 120 P: 87; NC: 158 QRS: 70; QRSD: 80 T: 91; QT: 297; QTc: 421; Interpretive Statements; SINUS TACHYCARDIA; NONSPECIFIC T-WAVE ABNORMALITY; ABNORMAL RHYTHM ECG; INCREASED RATE 11/05/16; Electronically Signed On 11-24-2016 15:46:34 EST by Jelly Anderson; Radiology Order: Chest, 1 view Test: Chest, 1 view REASON FOR EXAMINATION: Chest Pain; Portable chest, single AP view, patient sitting:; ; Comparison is 11/03/2016.; ; The lung chapa are clear. Cardiac size is normal. The casie, mediastinum, bony; thorax unremarkable.; ; The faintly visible rim calcified pancreatic tail cyst noted in the left upper; quadrant beneath the left hemidiaphragm on the comparison study excluded at the; inferior film margin on the current study.; ; Impression:; ; Negative portable chest.; ; ; Signed by; Talat Dixon MD 11/24/2016 09:09 A; Radiology Order: CT ABD & PELVIS: IV Contrast Only Test: CT ABD & PELVIS: IV Contrast Only REASON FOR EXAMINATION: LUQ pain; ; CLINICAL HISTORY: Abdominal pain.; TECHNIQUE: Multiple axial, sagittal and coronal CT images were obtained through the abdomen and pelvi; s after administration of intravenous contrast material.; COMMENTS:; The liver is of uniform attenuation without mass or defect. There is no intra or extrahepatic biliary; ductal dilatation. Well defined hypodense lesion of the spleen. The gallbladder contains gallstones.; 6 x 4.5 cm peripherally calcified pancreatic tail cyst.; There is no evidence of adrenal mass. Both kidneys demonstrate prompt and equal nephrograms. There is; no evidence of renal or ureteral mass. No renal or ureteral calculi are identified. There is no hydr; oureter or hydronephrosis. 2.3 cm cyst of the right kidney.; No evidence for appendicitis. There is no bowel wall thickening. No evidence for small or large bowel; obstruction. There is no evidence of abdominal ascites or lymphadenopathy. Fluid-filled mildly thick; -walled small bowel compatible with mild enteritis versus ileus.; There is no evidence of intrinsic or extrinsic bladder mass. There is no pelvic ascites or lymphadeno; pita.; Images of the lung bases show no evidence of pleural or parenchymal mass. There are no pleural effusi; ons.; The bony structures are free of lytic or blastic lesions. Multilevel degenerative changes are seen in; volving the thoracolumbar spine. Scattered calcifications are seen involving the aorta and major bran; ches compatible with atherosclerosis.; Impression:; Cholelithiasis.; 6 x 4.5 cm peripherally calcified pancreatic tail cyst.; Fluid-filled mildly thick-walled small bowel compatible with mild enteritis versus ileus.; ; ; Outcome: 11/24 05:16 Discharge ordered by Provider. mm11 05:31 Discharge Assessment: Patient awake, alert and oriented x 3. No cognitive and/or tm5 functional deficits noted. Patient verbalized understanding of disposition instructions. patient administered narcotics - yes. Pt provided with safe discharge. The following High Risk Discharge criteria are identified: None. Discharged to home ambulatory. Condition: good Condition: stable Condition: improved. Discharge instructions given to patient, Instructed on discharge instructions, follow up and referral plans. medication usage, Demonstrated understanding of instructions, medications, Pt was receptive of discharge instructions/ teaching. Prescriptions given X 1. CT Study completed. Property :Personal belongings accompany Pt. 05:33 Patient left the ED. tm5 Signatures: Dispatcher [employer] EDMS Haroldo Shirley, DO DO mm11 Tate Le, Reg Reg kf3 Judit Rivera, RN RN sls1 Gregoria Rider, Electrical Instrument Technician Unit krystynam Hiral Sauceda,RN RN ms18 Sarahi Kwok, Reg Reg ks16 Flor Zavala Jose, DRUM PRINTER DRUM PRINTER jmv Tsering Bowen,ANTONIO RN tm5 Chart Complete MTDD
--- NOTE | 2016-11-26 06:34 | EDDOCDS ---
Physician Documentation [facility] Name: Poppy Baptiste Age: 45 yrs Sex: Male : 1970 Arrival Date: 11/23/2016 Time: 20:21 Bed OBSERVATION Private MD: NO PRIMARY PHYSICIAN, . Disposition: 11/24/16 05:16 Discharged to Home/Self Care. Impression: Noninfective gastroenteritis and colitis, unspecified. - Condition is Stable. - Discharge Instructions: Viral Gastroenteritis, Viral Gastroenteritis, [id number]. - Prescriptions for Zofran 4 mg Oral Tablet - take 1 tablet by ORAL route 4 times per day As needed; 10 tablet. - Medication Reconciliation, Local Pharmacy Hours form. - Follow up: Private Physician; When: Call to arrange an appointment; Reason: Continuance of care. - Problem is an acute exacerbation. - Symptoms have improved. - Notes: YOUR CT SHOWS MILD INFLAMMATION OF YOUR INTESTINES THAT INDICATES THAT YOU HAVE A VIRAL INFECTION OF THE INTESTINES. DRINK PLENTY OF FLUIDS [facility] Historical: - Allergies: Aspirinhives; tylenolhives; - Home Meds: 1. Lantus 100 unit/mL Sub-Q soln 30 unit nightly 2. Humalog 100 unit/mL Sub-Q soln 22 unit three times a day 3. Lisinopril Oral 4. metformin 500 mg Oral tab 2 times per day 5. omeprazole 40 mg Oral cpDR 1 cap once daily 6. Reglan 5 mg Oral tab 1 tab once daily 7. Creon 12,000-38,000 -60,000 unit oral cpDR 1 caps 3 times per day 8. nortriptyline 25 mg Oral cap nightly - PMHx: Diabetes - IDDM: controlled; gall stones; Hypertension; Pancreatitis; pseudocyst on pancreas; - PSHx: Pseudo cyst removed; toes amputated; - Social history: Smoking status: Patient uses tobacco products, current every day smoker. No barriers to communication noted. - Family history: Not pertinent. - : The pt / caregiver states he / she is not on anticoagulants. Home medication list is obtained from pill bottles. - Exposure Risk Screening:: None identified. Vital Signs: 11/23 20:32 BP 118 / 79; Pulse 119; Resp 20; Temp 100.8(O); Pulse Ox 96% on R/A; Weight 87.09 kg / tm5 192 lbs; Height 5 ft. 11 in. (180.34 cm); Pain 8/10; 21:35 BP 118 / 78 (auto/); tm5 21:35 Pulse 122 MON; Pulse Ox 100% ; tm5 21:43 BP 127 / 83 (auto/); tm5 21:43 Pulse 116 MON; Resp 20 S; Pulse Ox 100% on R/A; tm5 21:43 BP 129 / 87 (auto/); tm5 21:44 Pulse 118 MON; Pulse Ox 100% ; tm5 11/24 00:18 BP 122 / 58; Pulse 112; Resp 18; Temp 99.6(O); Pulse Ox 98% on R/A; tm5 01:06 BP 129 / 80 (auto/); tm5 01:06 Pulse 116 MON; Resp 18 S; Pulse Ox 95% on R/A; tm5 05:31 BP 122 / 78; Pulse 74; Resp 20; Temp 99.0(O); Pulse Ox 99% on R/A; Pain 0/10; tm5 11/23 20:32 Body Mass Index 26.78 (87.09 kg, 180.34 cm) tm5 MDM: 11/23 20:26 ECG WITH READING ER PHYS+CARDIAG ordered. EDMS 21:05 NS 0.9% 1000 ml IV at bolus once ordered. mm11 21:05 Ondansetron 4 mg IVP once ordered. mm11 21:05 Undress patient appropriately for examination ordered. mm11 21:07 Amylase Ordered. EDMS 21:07 Basic Metabolic Profile Ordered. EDMS 21:07 CBC with Diff Ordered. EDMS 21:07 Cardiac Injury Profile Ordered. EDMS 21:07 Lipase Ordered. EDMS 21:07 Liver Profile Ordered. EDMS 21:07 Troponin Ordered. EDMS 21:07 Venous Blood Gas (large pea green tube on ice) Ordered. EDMS 21:07 Osmolality, Serum Ordered. EDMS 21:07 NOTHING BY MOUTH+DIET ordered. EDMS 21:30 morphine 4 mg IVP every 30 minutes; Document pain score/vitals after each dose (Hold if mm11 SBP < 90mmHg) x2 ordered. 21:39 Chest, 1 view Ordered. EDMS 21:40 The patient was assigned to Observation Status due to uncertainty of mm11 diagnosis/disposition, and remained under my care. Initial Observation Assessment: The working diagnosis being considered, that nessecitates further diagnostic evaluation and/or treatment, includes Pancreatitis, SBO, PNA, ACS The diagnostic and treatment plan, to secure diagnosis and/or to stabilize condition to procure safe disposition, includes BW, CT, Reval for pain. 22:19 CBC with Diff Reviewed. mm11 22:19 Venous Blood Gas (large pea green tube on ice) Reviewed. mm11 22:39 Basic Metabolic Profile Reviewed. mm11 22:39 Cardiac Injury Profile Reviewed. mm11 22:39 Lipase Reviewed. mm11 22:39 Liver Profile Reviewed. mm11 22:39 Amylase Reviewed. mm11 22:39 Troponin Reviewed. mm11 22:39 Osmolality, Serum Reviewed. mm11 23:56 CT ABD & PELVIS: IV Contrast Only Ordered. EDMS 11/24 00:55 Financial registration complete. [email or web address] 01:01 [facility] Payment Agreement was scanned into eH[employer] and attached to record. [email or web address] 01:13 GI Cocktail - (Alum-Mag Hydroxide-Simeth 30 ml, Lidocaine 10 ml, Hyoscyamine 10 ml) PO mm11 once; Pre-mixed 50mL unit dose ordered. 04:05 Fluid Challenge ordered. tm5 18:35 T-Sheet-- Draft Copy was scanned into eH[employer]ony and attached to record. klr 19:27 Radiology Report was scanned into eH[employer] and attached to record. kf3 19:27 ECG/EKG was scanned into [employer] and attached to record. kf3 11/25 00:28 ED course: certified letter sent to pt re formal read of ct abd/p for fu. no pcp ml listed. mlg. Administered Medications: 11/23 21:30 Drug: NS 0.9% 1000 ml [sodium chloride 0.9 % intravenous solution] Route: IV; Rate: sls1 bolus; Site: left forearm; 22:59 Follow up: IV Status: Completed infusion; IV Intake: 1000ml tm5 21:31 Drug: Ondansetron 4 mg [ondansetron HCl 2 mg/mL intravenous solution (2 mL)] Route: sls1 IVP; Site: left forearm; 22:00 Follow up: Response: Nausea is decreased; No Adverse Reaction tm5 21:45 Drug: morphine 4 mg [morphine 4 mg/mL intravenous cartridge (1 mL)] Route: IVP; Site: tm5 left forearm; 22:15 Follow up: Response: No Adverse Reaction; Pain is decreased tm5 22:59 Drug: morphine 4 mg [morphine 4 mg/mL intravenous cartridge (1 mL)] Route: IVP; Site: tm5 left forearm; 23:30 Follow up: Response: No Adverse Reaction; Pain is decreased tm5 11/24 01:14 Drug: GI Cocktail - (Alum-Mag Hydroxide-Simeth Suspension 225 mg-200 mg-25 mg/5 mL 30 tm5 ml, Lidocaine Liquid 2 % 10 ml, Hyoscyamine Liquid 10 ml) Route: PO; 04:07 Follow up: Response: No Adverse Reaction; Pain is decreased tm5 Signatures: Dispatcher [employer] EDMS Viry-Margy Mcdonnell MD MD Man Shirley, DO mm11 Tate Le, Reg Reg kf3 Sarahi Kwok, Reg Reg ks16 Flor Zavala Tonya, RN RN tm5 Judit Rivera RN sls1 The chart was reviewed and I authenticate all verbal orders and agree with the evaluation and treatment provided.Corrections: (The following items were deleted from the chart) 11/23 21:39 21:07 Chest, 2 view (PA\E\Lat)+XR ordered. EDMS EDMS Attachments: 11/24 01:01 [facility] Payment Agreement [email or web address] 18:35 T-Sheet-- Draft Copy klr 19:27 ECG/EKG kf3 Chart Complete MTDD
== END 2016-11-24 05:33 | disposition home or self-care (01) ==
LOC: M ED 20:21
DX: K52.9 Noninfective gastroenteritis and colitis, unspecified (principal); E11.9 Type 2 diabetes mellitus without complications; I10 Essential (primary) hypertension; Z87.19 Personal history of other diseases of the digestive system; Z79.899 Other long term (current) drug therapy; Z79.4 Long term (current) use of insulin; Z79.84 Long term (current) use of oral hypoglycemic drugs; Z88.6 Allergy status to analgesic agent; F17.210 Nicotine dependence, cigarettes, uncomplicated
CPT/HCPCS: 71010; 74177; 80048; 80076; 82150; 82550; 82553; 82803; 83690; 83930; 85025; 93005; 96361; 96374; 96375; 96376; 99285; J2405; Q9967

== ENCOUNTER 2016-12-12 19:03 | Emergency (ER) | payer BC ==
[2016-12-12] MEDS ORDERED: MORPHINE 4 MG/ML 1ML SYRINGE As Ordered ONE (20:43)
[2016-12-12] MEDS ORDERED: ONDANSETRON 4MG/2ML VIAL (J2405) As Ordered ONE (20:43)
[2016-12-12 21:01] LABS: BASO % 0.9 % (0.0-1.0); EOS # 0.1 K/mm3 (0.0-0.50); EOS % 1.4 % (0.0-3.0); LARGE UNSTAINED CELL # 0.1 K/mm3 (0.0-0.4); LARGE UNSTAINED CELL % 2.3 % (0.0-4.0); LYMPH # 1.8 K/mm3 (1.5-4.5); LYMPH % 41.6 % (24.0-44.0); MEAN CORPUSCULAR HEMOGLOBIN 29.4 pg (27.0-33.0); MEAN CORPUSCULAR HGB CONC 35.2 g/dl (32.0-36.5); MEAN CORPUSCULAR VOLUME 83.7 fl (80.0-96.0); MONO # 0.2 K/mm3 (0.0-0.8); MONO % 5.1 % (0.0-5.0); NEUTROPHILS % 48.7 % (36.0-66.0); PLATELET COUNT, AUTOMATED 250 k/mm3 (150-450); RED CELL DISTRIBUTION WIDTH 12.7 % (11.5-14.5); WHITE BLOOD COUNT 4.2 K/mm3 (4.0-10.0)
[2016-12-12 21:28] LABS: ALBUMIN 4.2 GM/DL (3.2-5.2); ALBUMIN/GLOBULIN RATIO 1.05 (1.00-1.93); ALKALINE PHOSPHATASE 116 U/L (45-117); ALT/SGPT 29 U/L (12-78); AMYLASE 39 U/L (25-115); ANION GAP 6 MEQ/L (8-16); AST/SGOT 21 U/L (15-37); BILIRUBIN,DIRECT 0.2 MG/DL (0.0-0.2); BILIRUBIN,TOTAL 0.7 MG/DL (0.2-1.0); BLOOD UREA NITROGEN 7 MG/DL (7-18); CALCIUM LEVEL 9.4 MG/DL (8.5-10.1); CARBON DIOXIDE LEVEL 33 MEQ/L (21-32); CHLORIDE LEVEL 100 MEQ/L (98-107); GLOMERULAR FILTRATION RATE > 60.0 (>60); GLUCOSE, FASTING 389 MG/DL (70-105); POTASSIUM SERUM 3.6 MEQ/L (3.5-5.1); SODIUM LEVEL 139 MEQ/L (136-145); TOTAL PROTEIN 8.2 GM/DL (6.4-8.2)
[2016-12-12] MEDS ORDERED: HumuLIN R (REGULAR) INSULIN (NovoLIN R) **100U/ML** PER UNIT As Ordered ONE (21:39)
[2016-12-12 21:51] LABS: VENOUS BASE EXCESS 5.7 (-2.0-2.0); VENOUS O2 SATURATION 38.8 % (60.0-80.0); VENOUS PARTIAL PRESSURE CO2 62.8 mmHg (38.0-50.0); VENOUS PARTIAL PRESSURE O2 22.2 mmHg (30.0-50.0); VENOUS STANDARD HCO3 28.2 MEQ/L; VENOUS TOTAL CO2 35.2 MEQ/L (24.0-28.0)
[2016-12-12] MEDS ORDERED: ISOVUE-370 76% 100ML VIAL (Q9967) As Ordered ONE (22:29)
--- NOTE | 2016-12-12 23:10 | REPUSA ---
CT of the abdomen and pelvis with contrast Clinical statement: Pain. Technique: Multiple axial CT images were obtained from the base of the lungs through the floor of the pelvis utilizing 5 mm axial slices after administration of nonionic intravenous contrast. Coronal an d sagittal reconstructions were also obtained. Comparison: 11/24 2016. Findings: Chest: The visualized lung bases are clear. Abdomen: The liver, spleen, kidneys, and adrenal glands are unremarkable. There is a stable simple cy st in the posterior right kidney. There is a 2 mm stone within the gallbladder. No pericholecystic in flammatory changes are appreciated however. The 4.6 x 6.4 cm calcified cystic lesion adjacent to the tail the pancreas is stable. The pancreas is otherwise unremarkable. The aorta is within normal limit s. There is no evidence of abdominal lymphadenopathy or ascites. Pelvis: The bowel is unremarkable, with no obstructive or inflammatory changes. The urinary bladder i s within normal limits. The other pelvic structures appear grossly intact. There is no evidence of pe lvic lymphadenopathy or ascites. Bones: There are no suspicious osseous abnormalities seen. Impression: 1. No acute findings to explain the patient's pain. 2. Stable partially calcified cystic lesion adjacent to the pancreas. 3. Cholelithiasis, without evidence of acute cholecystitis. 4. No evidence of hydronephrosis or nephrolithiasis. Simple right renal cyst. 5. No obstructive or inflammatory bowel changes.
[2016-12-13] MEDS ORDERED: DICYCLOMINE 10 MG CAP As Ordered ONE (01:12)
--- NOTE | 2016-12-13 01:25 | EDDOCDS ---
Physician Documentation [facility] Name: Poppy Baptiste Age: 46 yrs Sex: Male : 1970 Arrival Date: 12/12/2016 Time: 19:03 Bed TR7 Private MD: NO PRIMARY PHYSICIAN, . Disposition: 12/13/16 01:17 Discharged to Home/Self Care. Impression: Generalized abdominal pain, Type 2 diabetes mellitus with hyperglycemia. - Condition is Stable. - Discharge Instructions: Abdominal Pain, Adult, Type 2 Diabetes Mellitus, Adult. - Prescriptions for Bentyl 20 mg Oral Tablet - take 1 tablet by ORAL route every 6 hours As needed; 20 tablet. - Medication Reconciliation, Local Pharmacy Hours form. - Follow up: [facility] ; When: 1 - 2 days; Reason: Recheck today's complaints, Continuance of care. - Problem is new. - Symptoms have improved. - Notes: FOLLOW UP WITH THE GRADUATE MEDICAL PROGRAM, RETURN TO THE ER IF THE SYMPTOMS WORSEN OR BECOME CONCERNING Historical: - Allergies: Aspirinhives; tylenolhives; - Home Meds: 1. Creon 12,000-38,000 -60,000 unit oral cpDR 1 caps 3 times per day 2. Humalog 100 unit/mL Sub-Q soln 22 unit three times a day 3. Lantus 100 unit/mL Sub-Q soln 30 unit nightly 4. metformin 500 mg Oral tab 2 times per day 5. nortriptyline 25 mg Oral cap nightly 6. omeprazole 40 mg Oral cpDR 1 cap once daily 7. Reglan 5 mg Oral tab 1 tab once daily 8. carvedilol oral oral 1 tab 2 times per day - PMHx: Diabetes - IDDM: controlled; gall stones; Hypertension; Pancreatitis; pseudocyst on pancreas; - PSHx: Pseudo cyst removed; toes amputated; - Social history: Smoking status: Patient uses tobacco products, light tobacco smoker. No barriers to communication noted, The patient speaks fluent Brazilian. - Family history: No immediate family members are acutely ill. - : The pt / caregiver states he / she is not on anticoagulants. Home medication list is obtained from the patient. - Exposure Risk Screening:: None identified. Vital Signs: 12/12 19:06 BP 131 / 86; Pulse 99; Resp 18; Temp 97.6(O); Pulse Ox 100% on R/A; Weight 87.09 kg / bnb 192 lbs (R); Height 5 ft. 11 in. (180.34 cm) (R); Pain 10/10; 21:30 BP 128 / 71; Pulse 80; Resp 16; Pulse Ox 100% ; Pain 4/10; ld5 12/13 01:20 BP 140 / 87; Pulse 87; Resp 18; Temp 96.4; Pulse Ox 97% ; ajs 12/12 19:06 Body Mass Index 26.78 (87.09 kg, 180.34 cm) bnb MDM: 12/12 20:22 Accucheck ordered. ck7 20:34 Undress patient appropriately for examination ordered. ck7 20:34 IV Saline Lock ordered. ck7 20:34 NS 0.9% 1000 ml IV at bolus once ordered. ck7 20:35 morphine 4 mg IVP once ordered. ck7 20:35 Ondansetron 4 mg IVP once ordered. ck7 20:36 Amylase Ordered. EDMS 20:36 Basic Metabolic Profile Ordered. EDMS 20:36 CBC with Diff Ordered. EDMS 20:36 Lipase Ordered. EDMS 20:36 Liver Profile Ordered. EDMS 20:36 Urinalysis Ordered. EDMS 20:36 Urine Culture Ordered. EDMS 20:36 NOTHING BY MOUTH+DIET ordered. EDMS 20:38 Fingerstick Blood Sugar Ordered. EDMS 21:21 CBC with Diff Reviewed. ck7 21:21 Urinalysis Reviewed. ck7 21:21 Fingerstick Blood Sugar Reviewed. ck7 21:23 Financial registration complete. zo 21:33 Basic Metabolic Profile Reviewed. ck7 21:33 Amylase Reviewed. ck7 21:33 Lipase Reviewed. ck7 21:33 Liver Profile Reviewed. ck7 21:35 Insulin Regular Human 10 units IVP once ordered. ck7 21:35 NS 0.9% 1000 ml IV at bolus once ordered. ck7 21:36 Venous Blood Gas (large pea green tube on ice) Ordered. EDMS 21:36 CT ABD & PELVIS: IV Contrast Only Ordered. EDMS 21:42 [facility] Payment Agreement was scanned into [employer] and attached to record. zo 22:03 Venous Blood Gas (large pea green tube on ice) Reviewed. ck7 22:11 Accucheck hourly ordered. ck7 22:58 Fingerstick Blood Sugar Ordered. EDMS 23:41 Fingerstick Blood Sugar Reviewed. ck7 23:41 CT ABD & PELVIS: IV Contrast Only Reviewed. ck7 23:54 Fingerstick Blood Sugar Reviewed. ck7 12/13 00:42 Fingerstick Blood Sugar Ordered. EDMS 01:03 Fingerstick Blood Sugar Reviewed. ck7 01:07 Dicyclomine 20 mg PO once ordered. ck7 01:10 Fingerstick Blood Sugar Ordered. EDMS Point of Care Testing: Blood Glucose: 12/12 20:42 Blood Glucose: 392 mg/dL; ck1 22:52 Blood Glucose: 90 mg/dL; lf1 23:38 Blood Glucose: 73 mg/dL; ld5 12/13 00:34 Blood Glucose: 142 mg/dL; ld5 01:03 Blood Glucose: 246 mg/dL; ld5 Ranges: Administered Medications: 12/12 20:51 Drug: NS 0.9% 1000 ml [sodium chloride 0.9 % intravenous solution] Route: IV; Rate: lf1 bolus; Site: right antecubital; 21:48 Follow up: IV Status: Completed infusion; IV Intake: 1000ml ld5 20:52 Drug: morphine 4 mg [morphine 4 mg/mL intravenous cartridge (1 mL)] Route: IVP; Site: lf1 right antecubital; 21:30 Follow up: BP 128 / 71; Pulse 80 bpm; Resp 16 bpm; Pulse Ox 100% ; Pain 4/10 Adult; ld5 Response: Confirmed pt not driving.; Pain is decreased 20:52 Drug: Ondansetron 4 mg [ondansetron HCl 2 mg/mL intravenous solution (2 mL)] Route: lf1 IVP; Site: right antecubital; 21:48 Follow up: Response: Nausea is decreased ld5 21:48 Drug: Insulin Regular Human 10 units [insulin regular human 100 unit/mL injection ld5 solution (0.1 mL)] {Co-Signature: lf1 (Charlotte Gibson RN).} Route: IVP; Site: right forearm; 21:48 Drug: NS 0.9% 1000 ml [sodium chloride 0.9 % intravenous solution] Route: IV; Rate: ld5 bolus; Site: right forearm; 23:03 Follow up: IV Status: Completed infusion; IV Intake: 1000ml ld5 12/13 01:16 Drug: Dicyclomine 20 mg [dicyclomine 10 mg capsule (2 caps)] Route: PO; ld5 01:21 Follow up: Response: Pt left department before re-evaluation is appropriate ld5 Signatures: Dispatcher [employer] Margie Arevalo Rosemary,RN RN rs3 Batsheva Zabala RN RN ld5 Finn Bangura, RPA-C [id number] Charlotte Gibson RN lf1 Charlotte Gibson RN lf1 The chart was reviewed and I authenticate all verbal orders and agree with the evaluation and treatment provided.Attachments: 12/12 21:42 [facility] Payment Agreement zo MTDD
--- NOTE | 2016-12-13 01:25 | EDDOCDS ---
Nurse's Notes [facility] Name: Poppy Baptiste Age: 46 yrs Sex: Male : 1970 Arrival Date: 12/12/2016 Time: 19:03 Bed TR7 Private MD: NO PRIMARY PHYSICIAN, . Diagnosis: Generalized abdominal pain;Type 2 diabetes mellitus with hyperglycemia Presentation: 12/12 19:17 Presenting complaint: Patient states: abdominal pain and right flank pain for few days. rs3 nausea/vomiting /diarrhea for few days. Was seen here chronic pancreatitis two weeks ago. Acute neurological deficits are not present. Mechanism of Injury: No Mechanism of Injury. Adult Sepsis Screening: The patient does not have new or worsening altered mentation. Patient's respiratory rate is less than 22. Systolic blood pressure is greater than 100. Patient has a qSOFA score of 0- Negative Sepsis Screen. Suicide/Homicide risk assessment- the patient denies having any suicidal and/or homicidal ideations and does not present with any other emotional, behavioral or mental health complaints. Status: Patient is not a volunteer services manager or dependent. Transition of care: patient was not received from another setting of care. 19:17 Acuity: FRANCESCO Level 3 rs3 19:17 Method Of Arrival: Walkin/Carried/Asstd rs3 Triage Assessment: 19:21 General: Appears in no apparent distress. Pain: Location: abdomen. HIV screening NA for rs3 this visit Offered previously. Musculoskeletal: Reports abdominal pain. Historical: - Allergies: Aspirinhives; tylenolhives; - Home Meds: 1. Creon 12,000-38,000 -60,000 unit oral cpDR 1 caps 3 times per day 2. Humalog 100 unit/mL Sub-Q soln 22 unit three times a day 3. Lantus 100 unit/mL Sub-Q soln 30 unit nightly 4. metformin 500 mg Oral tab 2 times per day 5. nortriptyline 25 mg Oral cap nightly 6. omeprazole 40 mg Oral cpDR 1 cap once daily 7. Reglan 5 mg Oral tab 1 tab once daily 8. carvedilol oral oral 1 tab 2 times per day - PMHx: Diabetes - IDDM: controlled; gall stones; Hypertension; Pancreatitis; pseudocyst on pancreas; - PSHx: Pseudo cyst removed; toes amputated; - Social history: Smoking status: Patient uses tobacco products, light tobacco smoker. No barriers to communication noted, The patient speaks fluent Taiwanese. - Family history: No immediate family members are acutely ill. - : The pt / caregiver states he / she is not on anticoagulants. Home medication list is obtained from the patient. - Exposure Risk Screening:: None identified. Screenin:01 Screening information is obtained from the patient. Fall risk: No risks identified. ld5 Assistance ADL's: requires no assistance with activities of daily living. Abuse/DV Screen: The patient / caregiver reports he/she is: not in a situation that causes fear, pain or injury. Nutritional screening: No deficits noted. Advance Directives: There is no active DNR order. home support is adequate. Assessment: 21:01 General: Appears in no apparent distress, Behavior is cooperative. Pain: Location: ld5 abdomen Pain currently is 8 out of 10 on a pain scale. Quality of pain is described as sharp, stabbing, throbbing. Neurological: Level of Consciousness is awake, alert. Respiratory: Airway is patent Respiratory effort is even, unlabored, Breath sounds are clear bilaterally. GI: Abdomen is non- distended Bowel sounds present X 4 quads. Abd is soft and non tender X 4 quads. Reports diarrhea, nausea, vomiting. : Denies burning with urination, pain with urination. Derm: Skin is intact, Skin is dry. 21:49 General: Pt resting comfortably in bed watching TV. No apparent distress. Medicated per ld5 orders. Pt reports pain has started to increase. Provider to be made aware. Will continue to monitor. 22:52 Adult Sepsis Screening: The patient does not have new or worsening altered mentation. lf1 Patient's respiratory rate is less than 22. Systolic blood pressure is greater than 100. Patient has a qSOFA score of 0- Negative Sepsis Screen. General: Appears uncomfortable, Behavior is cooperative. Pain: Location: abdomen Pain currently is 8 out of 10 on a pain scale. Neurological: Level of Consciousness is awake, alert. EENT: No deficits noted. Respiratory: Airway Respiratory effort is even, unlabored. GI: Reports. Derm: Skin is normal. 23:41 General: Pt provided with boxed lunch. Will monitor. ld5 12/13 00:35 General: Pt laying quietly in bed watching TV. No apparent distress. Will continue to ld5 monitor. 01:04 General: Pt laying in bed. Fingerstick taken. Pt requesting pain meds. Will continue to ld5 monitor. 01:21 General: Appears in no apparent distress, Behavior is cooperative. Neurological: Level ld5 of Consciousness is awake, alert. Respiratory: Airway is patent Respiratory effort is even, unlabored. Vital Signs: 12/12 19:06 BP 131 / 86; Pulse 99; Resp 18; Temp 97.6(O); Pulse Ox 100% on R/A; Weight 87.09 kg bnb (R); Height 5 ft. 11 in. (180.34 cm) (R); Pain 10/10; 21:30 BP 128 / 71; Pulse 80; Resp 16; Pulse Ox 100% ; Pain 4/10; ld5 12/13 01:20 BP 140 / 87; Pulse 87; Resp 18; Temp 96.4; Pulse Ox 97% ; ajs 12/12 19:06 Body Mass Index 26.78 (87.09 kg, 180.34 cm) [facility] Vitals: 12/12 19:06 Log In Time: December 12, 2016 at 19:03. [facility] ED Course: 19:05 Patient visited by Little Avalos PCA. bnb 19:05 Patient moved to Waiting bnb 19:06 NO PRIMARY PHYSICIAN, . is Private Physician. bnb 19:07 Patient moved to Pre RCE bnb 19:19 Triage Initiated rs3 19:54 Patient moved to Triage 3 mdr 20:06 Patient visited by Mariah Merino,ANTONIO. ck1 20:21 Finn Bangura RPA-C is PHCP. ck7 20:21 Enoch Forte DO is Attending Physician. ck7 20:21 Patient visited by Finn Bangura RPA-C. ck7 20:39 Patient moved to I2 / M2 mdr 20:41 Urinalysis Sent. ck1 20:41 Urine Culture Sent. ck1 20:55 Patient visited by Finn Bangura RPA-C. ck7 21:01 The patient / caregiver is instructed regarding the plan of care and ED course. Patient ld5 has correct armband on for positive identification. Placed in gown. Bed in low position. Call light in reach. 21:01 Inserted saline lock: 20 gauge in right forearm and blood collected. The patient ld5 tolerated the procedure well. Labs drawn. (by ED staff). Sent per order to lab. 21:03 Patient visited by Batsheva Zabala RN. ld5 21:42 [facility] Payment Agreement was scanned into [employer] and attached to record. zo 21:46 Patient visited by Finn Bangura RPA-C. ck7 21:48 Venous Blood Gas (large pea green tube on ice) Sent. ld5 21:50 Patient visited by Batsheva Zabala RN. ld5 22:50 Patient visited by Finn Bangura RPA-C. ck7 22:54 Patient visited by Charlotte Gibson RN. lf1 23:03 Patient visited by Batsheva Zabala RN. ld5 23:35 Patient visited by Finn Bangura RPA-C. ck7 23:38 Patient visited by Batsheva Zabala RN. ld5 23:39 CT ABD & PELVIS: IV Contrast Only Returned. EDMS 23:41 Patient visited by Batsheva Zabala RN. ld5 02 00:15 Patient visited by Finn Bangura RPA-C. ck7 00:35 Patient visited by Batsheva Zabala RN. ld5 01:04 Patient visited by Batsheva Zabala RN. ld5 01:17 [facility] is Referral Physician. ck7 01:20 Patient visited by Rosemary Thomas. ajs 01:21 Patient moved to [facility] ld5 01:23 Discontinued lock intact, bleeding controlled, pressure dressing applied, No ld5 redness/swelling at site. No procedures done that require assistance. 01:24 Patient visited by Batsheva Zabala RN. ld5 Administered Medications: 12/12 20:51 Drug: NS 0.9% 1000 ml [sodium chloride 0.9 % intravenous solution] Route: IV; Rate: lf1 bolus; Site: right antecubital; 21:48 Follow up: IV Status: Completed infusion; IV Intake: 1000ml ld5 20:52 Drug: morphine 4 mg [morphine 4 mg/mL intravenous cartridge (1 mL)] Route: IVP; Site: lf1 right antecubital; 21:30 Follow up: BP 128 / 71; Pulse 80 bpm; Resp 16 bpm; Pulse Ox 100% ; Pain 4/10 Adult; ld5 Response: Confirmed pt not driving.; Pain is decreased 20:52 Drug: Ondansetron 4 mg [ondansetron HCl 2 mg/mL intravenous solution (2 mL)] Route: lf1 IVP; Site: right antecubital; 21:48 Follow up: Response: Nausea is decreased ld5 21:48 Drug: Insulin Regular Human 10 units [insulin regular human 100 unit/mL injection ld5 solution (0.1 mL)] {Co-Signature: lf1 (Charlotte Gibson RN).} Route: IVP; Site: right forearm; 21:48 Drug: NS 0.9% 1000 ml [sodium chloride 0.9 % intravenous solution] Route: IV; Rate: ld5 bolus; Site: right forearm; 23:03 Follow up: IV Status: Completed infusion; IV Intake: 1000ml ld5 12/13 01:16 Drug: Dicyclomine 20 mg [dicyclomine 10 mg capsule (2 caps)] Route: PO; ld5 01:21 Follow up: Response: Pt left department before re-evaluation is appropriate ld5 Point of Care Testing: Blood Glucose: 12/12 20:42 Blood Glucose: 392 mg/dL; ck1 22:52 Blood Glucose: 90 mg/dL; lf1 23:38 Blood Glucose: 73 mg/dL; ld5 02 00:34 Blood Glucose: 142 mg/dL; ld5 01:03 Blood Glucose: 246 mg/dL; ld5 Ranges: Intake: 02 21:48 IV: 1000.00ml; Total: 1000.00ml. ld5 23:03 IV: 1000.00ml; Total: 2000.00ml. ld5 Order Results: Lab Order: Amylase; SPEC'M 12/12/16 20:48 Test: AMYLASE; Value: 39; Range: 25-115; Units: U/L; Status: F Lab Order: Basic Metabolic Profile; SPEC'M 12/12/16 20:48 Test: GLUCOSE, FASTING; Value: 389; Range: 70-105; Abnormal: Above high normal; Units: MG/DL; Status: F Test: BLOOD UREA NITROGEN; Value: 7; Range: 7-18; Units: MG/DL; Status: F Test: CREATININE FOR GFR; Value: 1.20; Range: 0.70-1.30; Units: MG/DL; Status: F Test: GLOMERULAR FILTRATION RATE; Value: > 60.0; Range: >60; Status: F Test: SODIUM LEVEL; Value: 139; Range: 136-145; Units: MEQ/L; Status: F Test: POTASSIUM SERUM; Value: 3.6; Range: 3.5-5.1; Units: MEQ/L; Status: F Test: CHLORIDE LEVEL; Value: 100; Range: 98-107; Units: MEQ/L; Status: F Test: CARBON DIOXIDE LEVEL; Value: 33; Range: 21-32; Abnormal: Above high normal; Units: MEQ/L; Status: F Test: ANION GAP; Value: 6; Range: 8-16; Abnormal: Below low normal; Units: MEQ/L; Status: F Test: CALCIUM LEVEL; Value: 9.4; Range: 8.5-10.1; Units: MG/DL; Status: F Test Note: ; Units are mL/min/1.73 m2 Chronic Kidney Disease Staging per NKF: Stage I & II GFR >=60 Normal to Mildly Decreased Stage III GFR 30-59 Moderately Decreased Stage IV GFR 15-29 Severely Decreased Stage V GFR <15 Very Little GFR Left ESRD GFR <15 on ELECTRICAL APPLIANCE SERVICER Lab Order: CBC with Diff; SPEC'M 12/12/16 20:48 Test: WHITE BLOOD COUNT; Value: 4.2; Range: 4.0-10.0; Units: K/mm3; Status: F Test: RED BLOOD COUNT; Value: 4.89; Range: 4.30-6.10; Units: M/mm3; Status: F Test: HEMOGLOBIN; Value: 14.4; Range: 14.0-18.0; Units: g/dl; Status: F Test: HEMATOCRIT; Value: 40.9; Range: 42.0-52.0; Abnormal: Below low normal; Units: %; Status: F Test: MEAN CORPUSCULAR VOLUME; Value: 83.7; Range: 80.0-96.0; Units: fl; Status: F Test: MEAN CORPUSCULAR HEMOGLOBIN; Value: 29.4; Range: 27.0-33.0; Units: pg; Status: F Test: MEAN CORPUSCULAR HGB CONC; Value: 35.2; Range: 32.0-36.5; Units: g/dl; Status: F Test: RED CELL DISTRIBUTION WIDTH; Value: 12.7; Range: 11.5-14.5; Units: %; Status: F Test: PLATELET COUNT, AUTOMATED; Value: 250; Range: 150-450; Units: k/mm3; Status: F Test: NEUTROPHILS %; Value: 48.7; Range: 36.0-66.0; Units: %; Status: F Test: LYMPH %; Value: 41.6; Range: 24.0-44.0; Units: %; Status: F Test: MONO %; Value: 5.1; Range: 0.0-5.0; Abnormal: Above high normal; Units: %; Status: F Test: EOS %; Value: 1.4; Range: 0.0-3.0; Units: %; Status: F Test: BASO %; Value: 0.9; Range: 0.0-1.0; Units: %; Status: F Test: LARGE UNSTAINED CELL %; Value: 2.3; Range: 0.0-4.0; Units: %; Status: F Test: NEUTROPHILS #; Value: 2.0; Range: 1.8-7.7; Units: K/mm3; Status: F Test: LYMPH #; Value: 1.8; Range: 1.5-4.5; Units: K/mm3; Status: F Test: MONO #; Value: 0.2; Range: 0.0-0.8; Units: K/mm3; Status: F Test: EOS #; Value: 0.1; Range: 0.0-0.50; Units: K/mm3; Status: F Test: BASO #; Value: 0.0; Range: 0.0-0.2; Units: K/mm3; Status: F Test: LARGE UNSTAINED CELL #; Value: 0.1; Range: 0.0-0.4; Units: K/mm3; Status: F Lab Order: Lipase; SPEC' 12/12/16 20:48 Test: LIPASE; Value: 129; Range: 73-393; Units: U/L; Status: F Lab Order: Liver Profile; SPEC' 12/12/16 20:48 Test: AST/SGOT; Value: 21; Range: 15-37; Units: U/L; Status: F Test: ALT/SGPT; Value: 29; Range: 12-78; Units: U/L; Status: F Test: ALKALINE PHOSPHATASE; Value: 116; Range: 45-117; Units: U/L; Status: F Test: BILIRUBIN,TOTAL; Value: 0.7; Range: 0.2-1.0; Units: MG/DL; Status: F Test: BILIRUBIN,DIRECT; Value: 0.2; Range: 0.0-0.2; Units: MG/DL; Status: F Test: TOTAL PROTEIN; Value: 8.2; Range: 6.4-8.2; Units: GM/DL; Status: F Test: ALBUMIN; Value: 4.2; Range: 3.2-5.2; Units: GM/DL; Status: F Test: ALBUMIN/GLOBULIN RATIO; Value: 1.05; Range: 1.00-1.93; Status: F Lab Order: Urinalysis; SPEC'M 12/12/16 20:39 Test: APPEARANCE, URINE; Value: CLEAR; Range: CLEAR; Status: F Test: COLOR, URINE; Value: YELLOW; Range: YELLOW; Status: F Test: PH,URINE; Value: 6.0; Range: 5.0-9.0; Units: UNITS; Status: F Test: SPECIFIC GRAVITY URINE AUTO; Value: 1.035; Range: 1.002-1.035; Status: F Test: PROTEIN, URINE AUTO; Value: NEGATIVE; Range: NEGATIVE; Units: mg/dL; Status: F Test: GLUCOSE, URINE (UA) AUTO; Value: 3+; Range: NEGATIVE; Abnormal: Above high normal; Units: mg/dL; Status: F Test: KETONE, URINE AUTO; Value: NEGATIVE; Range: NEGATIVE; Units: mg/dL; Status: F Test: UROBILINOGEN, URINE AUTO; Value: 0.2; Range: 0.0-2.0; Units: mg/dL; Status: F Test: BILIRUBIN, URINE AUTO; Value: NEGATIVE; Range: NEGATIVE; Status: F Test: NITRITE, URINE AUTO; Value: NEGATIVE; Range: NEGATIVE; Status: F Test: LEUKOCYTE ESTERASE, URINE AUTO; Value: NEGATIVE; Range: NEGATIVE; Status: F Test: BLOOD, URINE BLOOD; Value: NEGATIVE; Range: NEGATIVE; Status: F Test: WBC, URINE AUTO; Value: 2; Range: 0-3; Units: /HPF; Status: F Test: RBC, URINE AUTO; Value: 2; Range: 0-3; Units: /HPF; Status: F Test: BACTERIA, URINE AUTO; Value: NEGATIVE; Range: NEGATIVE; Status: F Test: SQUAMOUS EPITHELIAL CELL UR AU; Value: 2; Range: 0-6; Units: /HPF; Status: F Test: HYALINE CAST, URINE AUTO; Value: 0; Range: 0-1; Units: /LPF; Status: F Lab Order: Fingerstick Blood Sugar; [facility]' 12/12/16 20:30 Test: BEDSIDE GLUCOSE; Value: 392; Range: 70-105; Abnormal: Above high normal; Units: MG/DL; Status: F Lab Order: Venous Blood Gas (large pea green tube on ice); [facility]' 12/12/16 21:46 Test: VENOUS PH; Value: 7.342; Range: 7.330-7.430; Units: UNITS; Status: F Test: VENOUS PARTIAL PRESSURE CO2; Value: 62.8; Range: 38.0-50.0; Abnormal: Above high normal; Units: mmHg; Status: F Test: VENOUS PARTIAL PRESSURE O2; Value: 22.2; Range: 30.0-50.0; Abnormal: Below low normal; Units: mmHg; Status: F Test: VENOUS TOTAL CO2; Value: 35.2; Range: 24.0-28.0; Abnormal: Above high normal; Units: MEQ/L; Status: F Test: VENOUS HCO3; Value: 33.3; Range: 23.0-27.0; Abnormal: Above high normal; Units: MEQ/L; Status: F Test: VENOUS BASE EXCESS; Value: 5.7; Range: -2.0-2.0; Abnormal: Above high normal; Status: F Test: VENOUS STANDARD HCO3; Value: 28.2; Units: MEQ/L; Status: F Test: VENOUS O2 SATURATION; Value: 38.8; Range: 60.0-80.0; Abnormal: Below low normal; Units: %; Status: F Lab Order: Fingerstick Blood Sugar; [facility] 12/12/16 22:49 Test: BEDSIDE GLUCOSE; Value: 90; Range: 70-105; Units: MG/DL; Status: F Lab Order: Fingerstick Blood Sugar; SPEC'M 12/12/16 23:37 Test: BEDSIDE GLUCOSE; Value: 73; Range: 70-105; Units: MG/DL; Status: F Lab Order: Fingerstick Blood Sugar; SPEC'M 12/13/16 00:34 Test: BEDSIDE GLUCOSE; Value: 142; Range: 70-105; Abnormal: Above high normal; Units: MG/DL; Status: F Lab Order: Fingerstick Blood Sugar; SPEC'M 12/13/16 01:02 Test: BEDSIDE GLUCOSE; Value: 246; Range: 70-105; Abnormal: Above high normal; Units: MG/DL; Status: F Radiology Order: CT ABD & PELVIS: IV Contrast Only Test: CT ABD & PELVIS: IV Contrast Only REASON FOR EXAMINATION: Abdomen Pain; ; CT of the abdomen and pelvis with contrast; Clinical statement: Pain.; Technique: Multiple axial CT images were obtained from the base of the lungs through the floor of the; pelvis utilizing 5 mm axial slices after administration of nonionic intravenous contrast. Coronal an; d sagittal reconstructions were also obtained.; Comparison: 11/24 2016.; Findings:; Chest: The visualized lung bases are clear.; Abdomen: The liver, spleen, kidneys, and adrenal glands are unremarkable. There is a stable simple cy; st in the posterior right kidney. There is a 2 mm stone within the gallbladder. No pericholecystic in; flammatory changes are appreciated however. The 4.6 x 6.4 cm calcified cystic lesion adjacent to the; tail the pancreas is stable. The pancreas is otherwise unremarkable. The aorta is within normal limit; s. There is no evidence of abdominal lymphadenopathy or ascites.; Pelvis: The bowel is unremarkable, with no obstructive or inflammatory changes. The urinary bladder i; s within normal limits. The other pelvic structures appear grossly intact. There is no evidence of pe; lvic lymphadenopathy or ascites.; Bones: There are no suspicious osseous abnormalities seen.; Impression:; 1. No acute findings to explain the patient's pain.; 2. Stable partially calcified cystic lesion adjacent to the pancreas.; 3. Cholelithiasis, without evidence of acute cholecystitis.; 4. No evidence of hydronephrosis or nephrolithiasis. Simple right renal cyst.; 5. No obstructive or inflammatory bowel changes.; ; Outcome: 12/13 01:17 Discharge ordered by Provider. ck7 01:23 Discharge Assessment: Patient awake, alert and oriented x 3. No cognitive and/or ld5 functional deficits noted. Patient verbalized understanding of disposition instructions. patient administered narcotics - yes. Pt provided with safe discharge. The following High Risk Discharge criteria are identified: None. Discharged to home ambulatory. Condition: stable. Discharge instructions given to patient, Instructed on discharge instructions, follow up and referral plans. medication usage, Demonstrated understanding of instructions, medications, Pt was receptive of discharge instructions/ teaching. Prescriptions given X 1. CT Study completed. Property :Personal belongings accompany Pt. 01:24 Patient left the ED. ld5 Signatures: Dispatcher [employer] EDMS Mariah Merino,RN RN ck1 Margie Fiore LisaRN RN lf1 Ria BenoitRN RN rs3 Batsheva ZabalaRN RN ld5 Rosemary Thomas Christopher, RPA-C RPA-Cck7 Tereso Mcconnell, AUDIOVISUAL LEAD TECHNICIAN AUDIOVISUAL LEAD TECHNICIAN mdr Little Avalos, AUDIOVISUAL LEAD TECHNICIAN AUDIOVISUAL LEAD TECHNICIAN bnb Charlotte Gibson RN lf1 MTDD
--- NOTE | 2016-12-15 02:25 | EDDOCDS ---
Nurse's Notes [facility] Name: Poppy Baptiste Age: 46 yrs Sex: Male : 1970 Arrival Date: 12/12/2016 Time: 19:03 Bed TR7 Private MD: NO PRIMARY PHYSICIAN, . Diagnosis: Generalized abdominal pain;Type 2 diabetes mellitus with hyperglycemia Presentation: 12/12 19:17 Presenting complaint: Patient states: abdominal pain and right flank pain for few days. rs3 nausea/vomiting /diarrhea for few days. Was seen here chronic pancreatitis two weeks ago. Acute neurological deficits are not present. Mechanism of Injury: No Mechanism of Injury. Adult Sepsis Screening: The patient does not have new or worsening altered mentation. Patient's respiratory rate is less than 22. Systolic blood pressure is greater than 100. Patient has a qSOFA score of 0- Negative Sepsis Screen. Suicide/Homicide risk assessment- the patient denies having any suicidal and/or homicidal ideations and does not present with any other emotional, behavioral or mental health complaints. Status: Patient is not a child and family services worker or dependent. Transition of care: patient was not received from another setting of care. 19:17 Acuity: FRANCESCO Level 3 rs3 19:17 Method Of Arrival: Walkin/Carried/Asstd rs3 Triage Assessment: 19:21 General: Appears in no apparent distress. Pain: Location: abdomen. HIV screening NA for rs3 this visit Offered previously. Musculoskeletal: Reports abdominal pain. Historical: - Allergies: Aspirinhives; tylenolhives; - Home Meds: 1. Creon 12,000-38,000 -60,000 unit oral cpDR 1 caps 3 times per day 2. Humalog 100 unit/mL Sub-Q soln 22 unit three times a day 3. Lantus 100 unit/mL Sub-Q soln 30 unit nightly 4. metformin 500 mg Oral tab 2 times per day 5. nortriptyline 25 mg Oral cap nightly 6. omeprazole 40 mg Oral cpDR 1 cap once daily 7. Reglan 5 mg Oral tab 1 tab once daily 8. carvedilol oral oral 1 tab 2 times per day - PMHx: Diabetes - IDDM: controlled; gall stones; Hypertension; Pancreatitis; pseudocyst on pancreas; - PSHx: Pseudo cyst removed; toes amputated; - Social history: Smoking status: Patient uses tobacco products, light tobacco smoker. No barriers to communication noted, The patient speaks fluent Ukrainian. - Family history: No immediate family members are acutely ill. - : The pt / caregiver states he / she is not on anticoagulants. Home medication list is obtained from the patient. - Exposure Risk Screening:: None identified. Screenin:01 Screening information is obtained from the patient. Fall risk: No risks identified. ld5 Assistance ADL's: requires no assistance with activities of daily living. Abuse/DV Screen: The patient / caregiver reports he/she is: not in a situation that causes fear, pain or injury. Nutritional screening: No deficits noted. Advance Directives: There is no active DNR order. home support is adequate. Assessment: 21:01 General: Appears in no apparent distress, Behavior is cooperative. Pain: Location: ld5 abdomen Pain currently is 8 out of 10 on a pain scale. Quality of pain is described as sharp, stabbing, throbbing. Neurological: Level of Consciousness is awake, alert. Respiratory: Airway is patent Respiratory effort is even, unlabored, Breath sounds are clear bilaterally. GI: Abdomen is non- distended Bowel sounds present X 4 quads. Abd is soft and non tender X 4 quads. Reports diarrhea, nausea, vomiting. : Denies burning with urination, pain with urination. Derm: Skin is intact, Skin is dry. 21:49 General: Pt resting comfortably in bed watching TV. No apparent distress. Medicated per ld5 orders. Pt reports pain has started to increase. Provider to be made aware. Will continue to monitor. 22:52 Adult Sepsis Screening: The patient does not have new or worsening altered mentation. lf1 Patient's respiratory rate is less than 22. Systolic blood pressure is greater than 100. Patient has a qSOFA score of 0- Negative Sepsis Screen. General: Appears uncomfortable, Behavior is cooperative. Pain: Location: abdomen Pain currently is 8 out of 10 on a pain scale. Neurological: Level of Consciousness is awake, alert. EENT: No deficits noted. Respiratory: Airway Respiratory effort is even, unlabored. GI: Reports. Derm: Skin is normal. 23:41 General: Pt provided with boxed lunch. Will monitor. ld5 12/13 00:35 General: Pt laying quietly in bed watching TV. No apparent distress. Will continue to ld5 monitor. 01:04 General: Pt laying in bed. Fingerstick taken. Pt requesting pain meds. Will continue to ld5 monitor. 01:21 General: Appears in no apparent distress, Behavior is cooperative. Neurological: Level ld5 of Consciousness is awake, alert. Respiratory: Airway is patent Respiratory effort is even, unlabored. Vital Signs: 12/12 19:06 BP 131 / 86; Pulse 99; Resp 18; Temp 97.6(O); Pulse Ox 100% on R/A; Weight 87.09 kg bnb (R); Height 5 ft. 11 in. (180.34 cm) (R); Pain 10/10; 21:30 BP 128 / 71; Pulse 80; Resp 16; Pulse Ox 100% ; Pain 4/10; ld5 12/13 01:20 BP 140 / 87; Pulse 87; Resp 18; Temp 96.4; Pulse Ox 97% ; ajs 12/12 19:06 Body Mass Index 26.78 (87.09 kg, 180.34 cm) [facility] Vitals: 12/12 19:06 Log In Time: December 12, 2016 at 19:03. [facility] ED Course: 19:05 Patient visited by [place] PCA. bnb 19:05 Patient moved to Waiting bnb 19:06 NO PRIMARY PHYSICIAN, . is Private Physician. bnb 19:07 Patient moved to Pre RCE bnb 19:19 Triage Initiated rs3 19:54 Patient moved to Triage 3 mdr 20:06 Patient visited by Mariah Merino,ANTONIO. ck1 20:21 Finn Bangura RPA-C is PHCP. ck7 20:21 Enoch Forte DO is Attending Physician. ck7 20:21 Patient visited by Finn Bangura RPA-C. ck7 20:39 Patient moved to I2 / M2 mdr 20:41 Urinalysis Sent. ck1 20:41 Urine Culture Sent. ck1 20:55 Patient visited by Finn Bangura RPA-C. ck7 21:01 The patient / caregiver is instructed regarding the plan of care and ED course. Patient ld5 has correct armband on for positive identification. Placed in gown. Bed in low position. Call light in reach. 21:01 Inserted saline lock: 20 gauge in right forearm and blood collected. The patient ld5 tolerated the procedure well. Labs drawn. (by ED staff). Sent per order to lab. 21:03 Patient visited by Batsheva Zabala RN. ld5 21:42 [facility] Payment Agreement was scanned into [employer] and attached to record. zo 21:46 Patient visited by Finn Bangura RPA-C. ck7 21:48 Venous Blood Gas (large pea green tube on ice) Sent. ld5 21:50 Patient visited by Batsheva Zabala RN. ld5 22:50 Patient visited by Finn Bangura RPA-C. ck7 22:54 Patient visited by Charlotte Gibson RN. lf1 23:03 Patient visited by Batsheva Zabala RN. ld5 23:35 Patient visited by Finn Bangura RPA-C. ck7 23:38 Patient visited by Batsheva Zabala RN. ld5 23:39 CT ABD & PELVIS: IV Contrast Only Returned. EDMS 23:41 Patient visited by Batsheva Zabala RN. ld5 02 00:15 Patient visited by Finn Bangura RPA-C. ck7 00:35 Patient visited by Batsheva Zabala RN. ld5 01:04 Patient visited by Batsheva Zabala RN. ld5 01:17 [facility] is Referral Physician. ck7 01:20 Patient visited by Rosemary Thomas. ajs 01:21 Patient moved to [facility] ld5 01:23 Discontinued lock intact, bleeding controlled, pressure dressing applied, No ld5 redness/swelling at site. No procedures done that require assistance. 01:24 Patient visited by Batsheva Zabala RN. ld5 10:15 T-Sheet-- Draft Copy was scanned into [employer] and attached to record. gb 10:15 Radiology Report was scanned into [employer] and attached to record. gb Administered Medications: 12/12 20:51 Drug: NS 0.9% 1000 ml [sodium chloride 0.9 % intravenous solution] Route: IV; Rate: lf1 bolus; Site: right antecubital; 21:48 Follow up: IV Status: Completed infusion; IV Intake: 1000ml ld5 20:52 Drug: morphine 4 mg [morphine 4 mg/mL intravenous cartridge (1 mL)] Route: IVP; Site: lf1 right antecubital; 21:30 Follow up: BP 128 / 71; Pulse 80 bpm; Resp 16 bpm; Pulse Ox 100% ; Pain 4/10 Adult; ld5 Response: Confirmed pt not driving.; Pain is decreased 20:52 Drug: Ondansetron 4 mg [ondansetron HCl 2 mg/mL intravenous solution (2 mL)] Route: lf1 IVP; Site: right antecubital; 21:48 Follow up: Response: Nausea is decreased ld5 21:48 Drug: Insulin Regular Human 10 units [insulin regular human 100 unit/mL injection ld5 solution (0.1 mL)] {Co-Signature: lf1 (Charlotte Gibson RN).} Route: IVP; Site: right forearm; 21:48 Drug: NS 0.9% 1000 ml [sodium chloride 0.9 % intravenous solution] Route: IV; Rate: ld5 bolus; Site: right forearm; 23:03 Follow up: IV Status: Completed infusion; IV Intake: 1000ml ld5 12/13 01:16 Drug: Dicyclomine 20 mg [dicyclomine 10 mg capsule (2 caps)] Route: PO; ld5 01:21 Follow up: Response: Pt left department before re-evaluation is appropriate ld5 Point of Care Testing: Blood Glucose: 12/12 20:42 Blood Glucose: 392 mg/dL; ck1 22:52 Blood Glucose: 90 mg/dL; lf1 23:38 Blood Glucose: 73 mg/dL; ld5 02 00:34 Blood Glucose: 142 mg/dL; ld5 01:03 Blood Glucose: 246 mg/dL; ld5 Ranges: Intake: 12/12 21:48 IV: 1000.00ml; Total: 1000.00ml. ld5 23:03 IV: 1000.00ml; Total: 2000.00ml. ld5 Order Results: Lab Order: Amylase; SPEC'M 12/12/16 20:48 Test: AMYLASE; Value: 39; Range: 25-115; Units: U/L; Status: F Lab Order: Basic Metabolic Profile; SPEC'M 12/12/16 20:48 Test: GLUCOSE, FASTING; Value: 389; Range: 70-105; Abnormal: Above high normal; Units: MG/DL; Status: F Test: BLOOD UREA NITROGEN; Value: 7; Range: 7-18; Units: MG/DL; Status: F Test: CREATININE FOR GFR; Value: 1.20; Range: 0.70-1.30; Units: MG/DL; Status: F Test: GLOMERULAR FILTRATION RATE; Value: > 60.0; Range: >60; Status: F Test: SODIUM LEVEL; Value: 139; Range: 136-145; Units: MEQ/L; Status: F Test: POTASSIUM SERUM; Value: 3.6; Range: 3.5-5.1; Units: MEQ/L; Status: F Test: CHLORIDE LEVEL; Value: 100; Range: 98-107; Units: MEQ/L; Status: F Test: CARBON DIOXIDE LEVEL; Value: 33; Range: 21-32; Abnormal: Above high normal; Units: MEQ/L; Status: F Test: ANION GAP; Value: 6; Range: 8-16; Abnormal: Below low normal; Units: MEQ/L; Status: F Test: CALCIUM LEVEL; Value: 9.4; Range: 8.5-10.1; Units: MG/DL; Status: F Test Note: ; Units are mL/min/1.73 m2 Chronic Kidney Disease Staging per NKF: Stage I & II GFR >=60 Normal to Mildly Decreased Stage III GFR 30-59 Moderately Decreased Stage IV GFR 15-29 Severely Decreased Stage V GFR <15 Very Little GFR Left ESRD GFR <15 on BIG DATA ENGINEER Lab Order: CBC with Diff; SPEC'M 12/12/16 20:48 Test: WHITE BLOOD COUNT; Value: 4.2; Range: 4.0-10.0; Units: K/mm3; Status: F Test: RED BLOOD COUNT; Value: 4.89; Range: 4.30-6.10; Units: M/mm3; Status: F Test: HEMOGLOBIN; Value: 14.4; Range: 14.0-18.0; Units: g/dl; Status: F Test: HEMATOCRIT; Value: 40.9; Range: 42.0-52.0; Abnormal: Below low normal; Units: %; Status: F Test: MEAN CORPUSCULAR VOLUME; Value: 83.7; Range: 80.0-96.0; Units: fl; Status: F Test: MEAN CORPUSCULAR HEMOGLOBIN; Value: 29.4; Range: 27.0-33.0; Units: pg; Status: F Test: MEAN CORPUSCULAR HGB CONC; Value: 35.2; Range: 32.0-36.5; Units: g/dl; Status: F Test: RED CELL DISTRIBUTION WIDTH; Value: 12.7; Range: 11.5-14.5; Units: %; Status: F Test: PLATELET COUNT, AUTOMATED; Value: 250; Range: 150-450; Units: k/mm3; Status: F Test: NEUTROPHILS %; Value: 48.7; Range: 36.0-66.0; Units: %; Status: F Test: LYMPH %; Value: 41.6; Range: 24.0-44.0; Units: %; Status: F Test: MONO %; Value: 5.1; Range: 0.0-5.0; Abnormal: Above high normal; Units: %; Status: F Test: EOS %; Value: 1.4; Range: 0.0-3.0; Units: %; Status: F Test: BASO %; Value: 0.9; Range: 0.0-1.0; Units: %; Status: F Test: LARGE UNSTAINED CELL %; Value: 2.3; Range: 0.0-4.0; Units: %; Status: F Test: NEUTROPHILS #; Value: 2.0; Range: 1.8-7.7; Units: K/mm3; Status: F Test: LYMPH #; Value: 1.8; Range: 1.5-4.5; Units: K/mm3; Status: F Test: MONO #; Value: 0.2; Range: 0.0-0.8; Units: K/mm3; Status: F Test: EOS #; Value: 0.1; Range: 0.0-0.50; Units: K/mm3; Status: F Test: BASO #; Value: 0.0; Range: 0.0-0.2; Units: K/mm3; Status: F Test: LARGE UNSTAINED CELL #; Value: 0.1; Range: 0.0-0.4; Units: K/mm3; Status: F Lab Order: Lipase; SPEC'M 12/12/16 20:48 Test: LIPASE; Value: 129; Range: 73-393; Units: U/L; Status: F Lab Order: Liver Profile; [facility] 12/12/16 20:48 Test: AST/SGOT; Value: 21; Range: 15-37; Units: U/L; Status: F Test: ALT/SGPT; Value: 29; Range: 12-78; Units: U/L; Status: F Test: ALKALINE PHOSPHATASE; Value: 116; Range: 45-117; Units: U/L; Status: F Test: BILIRUBIN,TOTAL; Value: 0.7; Range: 0.2-1.0; Units: MG/DL; Status: F Test: BILIRUBIN,DIRECT; Value: 0.2; Range: 0.0-0.2; Units: MG/DL; Status: F Test: TOTAL PROTEIN; Value: 8.2; Range: 6.4-8.2; Units: GM/DL; Status: F Test: ALBUMIN; Value: 4.2; Range: 3.2-5.2; Units: GM/DL; Status: F Test: ALBUMIN/GLOBULIN RATIO; Value: 1.05; Range: 1.00-1.93; Status: F Lab Order: Urinalysis; [facility] 12/12/16 20:39 Test: APPEARANCE, URINE; Value: CLEAR; Range: CLEAR; Status: F Test: COLOR, URINE; Value: YELLOW; Range: YELLOW; Status: F Test: PH,URINE; Value: 6.0; Range: 5.0-9.0; Units: UNITS; Status: F Test: SPECIFIC GRAVITY URINE AUTO; Value: 1.035; Range: 1.002-1.035; Status: F Test: PROTEIN, URINE AUTO; Value: NEGATIVE; Range: NEGATIVE; Units: mg/dL; Status: F Test: GLUCOSE, URINE (UA) AUTO; Value: 3+; Range: NEGATIVE; Abnormal: Above high normal; Units: mg/dL; Status: F Test: KETONE, URINE AUTO; Value: NEGATIVE; Range: NEGATIVE; Units: mg/dL; Status: F Test: UROBILINOGEN, URINE AUTO; Value: 0.2; Range: 0.0-2.0; Units: mg/dL; Status: F Test: BILIRUBIN, URINE AUTO; Value: NEGATIVE; Range: NEGATIVE; Status: F Test: NITRITE, URINE AUTO; Value: NEGATIVE; Range: NEGATIVE; Status: F Test: LEUKOCYTE ESTERASE, URINE AUTO; Value: NEGATIVE; Range: NEGATIVE; Status: F Test: BLOOD, URINE BLOOD; Value: NEGATIVE; Range: NEGATIVE; Status: F Test: WBC, URINE AUTO; Value: 2; Range: 0-3; Units: /HPF; Status: F Test: RBC, URINE AUTO; Value: 2; Range: 0-3; Units: /HPF; Status: F Test: BACTERIA, URINE AUTO; Value: NEGATIVE; Range: NEGATIVE; Status: F Test: SQUAMOUS EPITHELIAL CELL UR AU; Value: 2; Range: 0-6; Units: /HPF; Status: F Test: HYALINE CAST, URINE AUTO; Value: 0; Range: 0-1; Units: /LPF; Status: F Lab Order: Urine Culture; [facility] 12/12/16 20:39 Test: URINE CULTURE; Value: <EXTERNAL COMMENT eCWMed> FULL REPORT IN LAB NOTES (eCW and Medent).; Status: F Test: URINE CULTURE; Value: URINE CULTURE RESULT NO GROWTH; Status: F Lab Order: Fingerstick Blood Sugar; [facility] 12/12/16 20:30 Test: BEDSIDE GLUCOSE; Value: 392; Range: 70-105; Abnormal: Above high normal; Units: MG/DL; Status: F Lab Order: Venous Blood Gas (large pea green tube on ice); [facility] 12/12/16 21:46 Test: VENOUS PH; Value: 7.342; Range: 7.330-7.430; Units: UNITS; Status: F Test: VENOUS PARTIAL PRESSURE CO2; Value: 62.8; Range: 38.0-50.0; Abnormal: Above high normal; Units: mmHg; Status: F Test: VENOUS PARTIAL PRESSURE O2; Value: 22.2; Range: 30.0-50.0; Abnormal: Below low normal; Units: mmHg; Status: F Test: VENOUS TOTAL CO2; Value: 35.2; Range: 24.0-28.0; Abnormal: Above high normal; Units: MEQ/L; Status: F Test: VENOUS HCO3; Value: 33.3; Range: 23.0-27.0; Abnormal: Above high normal; Units: MEQ/L; Status: F Test: VENOUS BASE EXCESS; Value: 5.7; Range: -2.0-2.0; Abnormal: Above high normal; Status: F Test: VENOUS STANDARD HCO3; Value: 28.2; Units: MEQ/L; Status: F Test: VENOUS O2 SATURATION; Value: 38.8; Range: 60.0-80.0; Abnormal: Below low normal; Units: %; Status: F Lab Order: Fingerstick Blood Sugar; [facility] 12/12/16 22:49 Test: BEDSIDE GLUCOSE; Value: 90; Range: 70-105; Units: MG/DL; Status: F Lab Order: Fingerstick Blood Sugar; [facility] 12/12/16 23:37 Test: BEDSIDE GLUCOSE; Value: 73; Range: 70-105; Units: MG/DL; Status: F Lab Order: Fingerstick Blood Sugar; [facility] 12/13/16 00:34 Test: BEDSIDE GLUCOSE; Value: 142; Range: 70-105; Abnormal: Above high normal; Units: MG/DL; Status: F Lab Order: Fingerstick Blood Sugar; [facility] 12/13/16 01:02 Test: BEDSIDE GLUCOSE; Value: 246; Range: 70-105; Abnormal: Above high normal; Units: MG/DL; Status: F Radiology Order: CT ABD & PELVIS: IV Contrast Only Test: CT ABD & PELVIS: IV Contrast Only REASON FOR EXAMINATION: Abdomen Pain; ; CT of the abdomen and pelvis with contrast; Clinical statement: Pain.; Technique: Multiple axial CT images were obtained from the base of the lungs through the floor of the; pelvis utilizing 5 mm axial slices after administration of nonionic intravenous contrast. Coronal an; d sagittal reconstructions were also obtained.; Comparison: 11/24 2016.; Findings:; Chest: The visualized lung bases are clear.; Abdomen: The liver, spleen, kidneys, and adrenal glands are unremarkable. There is a stable simple cy; st in the posterior right kidney. There is a 2 mm stone within the gallbladder. No pericholecystic in; flammatory changes are appreciated however. The 4.6 x 6.4 cm calcified cystic lesion adjacent to the; tail the pancreas is stable. The pancreas is otherwise unremarkable. The aorta is within normal limit; s. There is no evidence of abdominal lymphadenopathy or ascites.; Pelvis: The bowel is unremarkable, with no obstructive or inflammatory changes. The urinary bladder i; s within normal limits. The other pelvic structures appear grossly intact. There is no evidence of pe; lvic lymphadenopathy or ascites.; Bones: There are no suspicious osseous abnormalities seen.; Impression:; 1. No acute findings to explain the patient's pain.; 2. Stable partially calcified cystic lesion adjacent to the pancreas.; 3. Cholelithiasis, without evidence of acute cholecystitis.; 4. No evidence of hydronephrosis or nephrolithiasis. Simple right renal cyst.; 5. No obstructive or inflammatory bowel changes.; ; Outcome: 12/13 01:17 Discharge ordered by Provider. ck7 01:23 Discharge Assessment: Patient awake, alert and oriented x 3. No cognitive and/or ld5 functional deficits noted. Patient verbalized understanding of disposition instructions. patient administered narcotics - yes. Pt provided with safe discharge. The following High Risk Discharge criteria are identified: None. Discharged to home ambulatory. Condition: stable. Discharge instructions given to patient, Instructed on discharge instructions, follow up and referral plans. medication usage, Demonstrated understanding of instructions, medications, Pt was receptive of discharge instructions/ teaching. Prescriptions given X 1. CT Study completed. Property :Personal belongings accompany Pt. 01:24 Patient left the ED. ld5 Signatures: Dispatcher [employer] EDMS Betty Frost, Reg Reg gb Mariah Merino,RN RN ck1 Margie Fiore LisaRN RN lf1 Ria BenoitRN RN rs3 Batsheva ZabalaRN RN ld5 Rosemary Thomas Christopher, RPA-C RPA-Cck7 Tereso Mcconnell, FLYER BUILDER FLYER BUILDER Little Goss, FLYER BUILDER FLYER BUILDER bnb Charlotte Gibson RN lf1 Chart Complete MTDD
--- NOTE | 2016-12-15 02:25 | EDDOCDS ---
Physician Documentation [facility] Name: Poppy Baptiste Age: 46 yrs Sex: Male : 1970 Arrival Date: 12/12/2016 Time: 19:03 Bed TR7 Private MD: NO PRIMARY PHYSICIAN, . Disposition: 12/13/16 01:17 Discharged to Home/Self Care. Impression: Generalized abdominal pain, Type 2 diabetes mellitus with hyperglycemia. - Condition is Stable. - Discharge Instructions: Abdominal Pain, Adult, Type 2 Diabetes Mellitus, Adult. - Prescriptions for Bentyl 20 mg Oral Tablet - take 1 tablet by ORAL route every 6 hours As needed; 20 tablet. - Medication Reconciliation, Local Pharmacy Hours form. - [facility]: [facility] ; When: 1 - 2 days; Reason: Recheck today's complaints, Continuance of care. - Problem is new. - Symptoms have improved. - Notes: FOLLOW UP WITH THE GRADUATE MEDICAL PROGRAM, RETURN TO THE ER IF THE SYMPTOMS WORSEN OR BECOME CONCERNING Historical: - Allergies: Aspirinhives; tylenolhives; - Home Meds: 1. Creon 12,000-38,000 -60,000 unit oral cpDR 1 caps 3 times per day 2. Humalog 100 unit/mL Sub-Q soln 22 unit three times a day 3. Lantus 100 unit/mL Sub-Q soln 30 unit nightly 4. metformin 500 mg Oral tab 2 times per day 5. nortriptyline 25 mg Oral cap nightly 6. omeprazole 40 mg Oral cpDR 1 cap once daily 7. Reglan 5 mg Oral tab 1 tab once daily 8. carvedilol oral oral 1 tab 2 times per day - PMHx: Diabetes - IDDM: controlled; gall stones; Hypertension; Pancreatitis; pseudocyst on pancreas; - PSHx: Pseudo cyst removed; toes amputated; - Social history: Smoking status: Patient uses tobacco products, light tobacco smoker. No barriers to communication noted, The patient speaks fluent Burkinan. - Family history: No immediate family members are acutely ill. - : The pt / caregiver states he / she is not on anticoagulants. Home medication list is obtained from the patient. - Exposure Risk Screening:: None identified. Vital Signs: 12/12 19:06 BP 131 / 86; Pulse 99; Resp 18; Temp 97.6(O); Pulse Ox 100% on R/A; Weight 87.09 kg / bnb 192 lbs (R); Height 5 ft. 11 in. (180.34 cm) (R); Pain 10/10; 21:30 BP 128 / 71; Pulse 80; Resp 16; Pulse Ox 100% ; Pain 4/10; ld5 12/13 01:20 BP 140 / 87; Pulse 87; Resp 18; Temp 96.4; Pulse Ox 97% ; ajs 12/12 19:06 Body Mass Index 26.78 (87.09 kg, 180.34 cm) bnb MDM: 12/12 20:22 Accucheck ordered. ck7 20:34 Undress patient appropriately for examination ordered. ck7 20:34 IV Saline Lock ordered. ck7 20:34 NS 0.9% 1000 ml IV at bolus once ordered. ck7 20:35 morphine 4 mg IVP once ordered. ck7 20:35 Ondansetron 4 mg IVP once ordered. ck7 20:36 Amylase Ordered. EDMS 20:36 Basic Metabolic Profile Ordered. EDMS 20:36 CBC with Diff Ordered. EDMS 20:36 Lipase Ordered. EDMS 20:36 Liver Profile Ordered. EDMS 20:36 Urinalysis Ordered. EDMS 20:36 Urine Culture Ordered. EDMS 20:36 NOTHING BY MOUTH+DIET ordered. EDMS 20:38 Fingerstick Blood Sugar Ordered. EDMS 21:21 CBC with Diff Reviewed. ck7 21:21 Urinalysis Reviewed. ck7 21:21 Fingerstick Blood Sugar Reviewed. ck7 21:23 Financial registration complete. zo 21:33 Basic Metabolic Profile Reviewed. ck7 21:33 Amylase Reviewed. ck7 21:33 Lipase Reviewed. ck7 21:33 Liver Profile Reviewed. ck7 21:35 Insulin Regular Human 10 units IVP once ordered. ck7 21:35 NS 0.9% 1000 ml IV at bolus once ordered. ck7 21:36 Venous Blood Gas (large pea green tube on ice) Ordered. EDMS 21:36 CT ABD & PELVIS: IV Contrast Only Ordered. EDMS 21:42 [facility] [place] Agreement was scanned into [employer] and attached to record. zo 22:03 Venous Blood Gas (large pea green tube on ice) Reviewed. ck7 22:11 Accucheck hourly ordered. ck7 22:58 Fingerstick Blood Sugar Ordered. EDMS 23:41 Fingerstick Blood Sugar Reviewed. ck7 23:41 CT ABD & PELVIS: IV Contrast Only Reviewed. ck7 23:54 Fingerstick Blood Sugar Reviewed. ck7 12/13 00:42 Fingerstick Blood Sugar Ordered. EDMS 01:03 Fingerstick Blood Sugar Reviewed. ck7 01:07 Dicyclomine 20 mg PO once ordered. ck7 01:10 Fingerstick Blood Sugar Ordered. EDMS 10:15 T-Sheet-- Draft Copy was scanned into [employer] and attached to record. gb 10:15 Radiology Report was scanned into [employer] and attached to record. gb Point of Care Testing: Blood Glucose: 12/12 20:42 Blood Glucose: 392 mg/dL; ck1 22:52 Blood Glucose: 90 mg/dL; lf1 23:38 Blood Glucose: 73 mg/dL; ld5 12/13 00:34 Blood Glucose: 142 mg/dL; ld5 01:03 Blood Glucose: 246 mg/dL; ld5 Ranges: Administered Medications: 12/12 20:51 Drug: NS 0.9% 1000 ml [sodium chloride 0.9 % intravenous solution] Route: IV; Rate: lf1 bolus; Site: right antecubital; 21:48 Follow up: IV Status: Completed infusion; IV Intake: 1000ml ld5 20:52 Drug: morphine 4 mg [morphine 4 mg/mL intravenous cartridge (1 mL)] Route: IVP; Site: lf1 right antecubital; 21:30 Follow up: BP 128 / 71; Pulse 80 bpm; Resp 16 bpm; Pulse Ox 100% ; Pain 4/10 Adult; ld5 Response: Confirmed pt not driving.; Pain is decreased 20:52 Drug: Ondansetron 4 mg [ondansetron HCl 2 mg/mL intravenous solution (2 mL)] Route: lf1 IVP; Site: right antecubital; 21:48 Follow up: Response: Nausea is decreased ld5 21:48 Drug: Insulin Regular Human 10 units [insulin regular human 100 unit/mL injection ld5 solution (0.1 mL)] {Co-Signature: lf1 (Charlotte Gibson RN).} Route: IVP; Site: right forearm; 21:48 Drug: NS 0.9% 1000 ml [sodium chloride 0.9 % intravenous solution] Route: IV; Rate: ld5 bolus; Site: right forearm; 23:03 Follow up: IV Status: Completed infusion; IV Intake: 1000ml ld5 12/13 01:16 Drug: Dicyclomine 20 mg [dicyclomine 10 mg capsule (2 caps)] Route: PO; ld5 01:21 Follow up: Response: Pt left department before re-evaluation is appropriate ld5 Signatures: Dispatcher [employer] EDMS Betty Frost, Ken Reg gb Adebayo, Ria Jesus RN RN rs3 Batsheva Zabala RN RN ld5 Finn Bangura, RPA-C RPA-[id number] Charlotte Gibson RN lf1 Charlotte Gibson RN lf1 The chart was reviewed and I authenticate all verbal orders and agree with the evaluation and treatment provided.Attachments: 12/12 21:42 [facility] [place] Payment Agreement zo 12/13 10:15 T-Sheet-- Draft Copy gb Chart Complete MTDD
--- NOTE | 2016-12-15 02:25 | EDDOCDS ---
Physician Documentation [facility] Name: Poppy Baptiste Age: 46 yrs Sex: Male : 1970 Arrival Date: 12/12/2016 Time: 19:03 Bed TR7 Private MD: NO PRIMARY PHYSICIAN, . Disposition: 12/13/16 01:17 Discharged to Home/Self Care. Impression: Generalized abdominal pain, Type 2 diabetes mellitus with hyperglycemia. - Condition is Stable. - Discharge Instructions: Abdominal Pain, Adult, Type 2 Diabetes Mellitus, Adult. - Prescriptions for Bentyl 20 mg Oral Tablet - take 1 tablet by ORAL route every 6 hours As needed; 20 tablet. - Medication Reconciliation, Local Pharmacy Hours form. - [facility] ; When: 1 - 2 days; Reason: Recheck today's complaints, Continuance of care. - Problem is new. - Symptoms have improved. - Notes: FOLLOW UP WITH THE GRADUATE MEDICAL PROGRAM, RETURN TO THE ER IF THE SYMPTOMS WORSEN OR BECOME CONCERNING Historical: - Allergies: Aspirinhives; tylenolhives; - Home Meds: 1. Creon 12,000-38,000 -60,000 unit oral cpDR 1 caps 3 times per day 2. Humalog 100 unit/mL Sub-Q soln 22 unit three times a day 3. Lantus 100 unit/mL Sub-Q soln 30 unit nightly 4. metformin 500 mg Oral tab 2 times per day 5. nortriptyline 25 mg Oral cap nightly 6. omeprazole 40 mg Oral cpDR 1 cap once daily 7. Reglan 5 mg Oral tab 1 tab once daily 8. carvedilol oral oral 1 tab 2 times per day - PMHx: Diabetes - IDDM: controlled; gall stones; Hypertension; Pancreatitis; pseudocyst on pancreas; - PSHx: Pseudo cyst removed; toes amputated; - Social history: Smoking status: Patient uses tobacco products, light tobacco smoker. No barriers to communication noted, The patient speaks fluent Belgian. - Family history: No immediate family members are acutely ill. - : The pt / caregiver states he / she is not on anticoagulants. Home medication list is obtained from the patient. - Exposure Risk Screening:: None identified. Vital Signs: 12/12 19:06 BP 131 / 86; Pulse 99; Resp 18; Temp 97.6(O); Pulse Ox 100% on R/A; Weight 87.09 kg / bnb 192 lbs (R); Height 5 ft. 11 in. (180.34 cm) (R); Pain 10/10; 21:30 BP 128 / 71; Pulse 80; Resp 16; Pulse Ox 100% ; Pain 4/10; ld5 12/13 01:20 BP 140 / 87; Pulse 87; Resp 18; Temp 96.4; Pulse Ox 97% ; ajs 12/12 19:06 Body Mass Index 26.78 (87.09 kg, 180.34 cm) bnb MDM: 12/12 20:22 Accucheck ordered. ck7 20:34 Undress patient appropriately for examination ordered. ck7 20:34 IV Saline Lock ordered. ck7 20:34 NS 0.9% 1000 ml IV at bolus once ordered. ck7 20:35 morphine 4 mg IVP once ordered. ck7 20:35 Ondansetron 4 mg IVP once ordered. ck7 20:36 Amylase Ordered. EDMS 20:36 Basic Metabolic Profile Ordered. EDMS 20:36 CBC with Diff Ordered. EDMS 20:36 Lipase Ordered. EDMS 20:36 Liver Profile Ordered. EDMS 20:36 Urinalysis Ordered. EDMS 20:36 Urine Culture Ordered. EDMS 20:36 NOTHING BY MOUTH+DIET ordered. EDMS 20:38 Fingerstick Blood Sugar Ordered. EDMS 21:21 CBC with Diff Reviewed. ck7 21:21 Urinalysis Reviewed. ck7 21:21 Fingerstick Blood Sugar Reviewed. ck7 21:23 Financial registration complete. zo 21:33 Basic Metabolic Profile Reviewed. ck7 21:33 Amylase Reviewed. ck7 21:33 Lipase Reviewed. ck7 21:33 Liver Profile Reviewed. ck7 21:35 Insulin Regular Human 10 units IVP once ordered. ck7 21:35 NS 0.9% 1000 ml IV at bolus once ordered. ck7 21:36 Venous Blood Gas (large pea green tube on ice) Ordered. EDMS 21:36 CT ABD & PELVIS: IV Contrast Only Ordered. EDMS 21:42 [facility] [place] Payment Agreement was scanned into [employer] and attached to record. zo 22:03 Venous Blood Gas (large pea green tube on ice) Reviewed. ck7 22:11 Accucheck hourly ordered. ck7 22:58 Fingerstick Blood Sugar Ordered. EDMS 23:41 Fingerstick Blood Sugar Reviewed. ck7 23:41 CT ABD & PELVIS: IV Contrast Only Reviewed. ck7 23:54 Fingerstick Blood Sugar Reviewed. ck7 12/13 00:42 Fingerstick Blood Sugar Ordered. EDMS 01:03 Fingerstick Blood Sugar Reviewed. ck7 01:07 Dicyclomine 20 mg PO once ordered. ck7 01:10 Fingerstick Blood Sugar Ordered. EDMS 10:15 T-Sheet-- Draft Copy was scanned into [employer] and attached to record. gb 10:15 Radiology Report was scanned into [employer] and attached to record. gb Point of Care Testing: Blood Glucose: 12/12 20:42 Blood Glucose: 392 mg/dL; ck1 22:52 Blood Glucose: 90 mg/dL; lf1 23:38 Blood Glucose: 73 mg/dL; ld5 12/13 00:34 Blood Glucose: 142 mg/dL; ld5 01:03 Blood Glucose: 246 mg/dL; ld5 Ranges: Administered Medications: 12/12 20:51 Drug: NS 0.9% 1000 ml [sodium chloride 0.9 % intravenous solution] Route: IV; Rate: lf1 bolus; Site: right antecubital; 21:48 Follow up: IV Status: Completed infusion; IV Intake: 1000ml ld5 20:52 Drug: morphine 4 mg [morphine 4 mg/mL intravenous cartridge (1 mL)] Route: IVP; Site: lf1 right antecubital; 21:30 Follow up: BP 128 / 71; Pulse 80 bpm; Resp 16 bpm; Pulse Ox 100% ; Pain 4/10 Adult; ld5 Response: Confirmed pt not driving.; Pain is decreased 20:52 Drug: Ondansetron 4 mg [ondansetron HCl 2 mg/mL intravenous solution (2 mL)] Route: lf1 IVP; Site: right antecubital; 21:48 Follow up: Response: Nausea is decreased ld5 21:48 Drug: Insulin Regular Human 10 units [insulin regular human 100 unit/mL injection ld5 solution (0.1 mL)] {Co-Signature: lf1 (Charlotte Gibson RN).} Route: IVP; Site: right forearm; 21:48 Drug: NS 0.9% 1000 ml [sodium chloride 0.9 % intravenous solution] Route: IV; Rate: ld5 bolus; Site: right forearm; 23:03 Follow up: IV Status: Completed infusion; IV Intake: 1000ml ld5 12/13 01:16 Drug: Dicyclomine 20 mg [dicyclomine 10 mg capsule (2 caps)] Route: PO; ld5 01:21 Follow up: Response: Pt left department before re-evaluation is appropriate ld5 Signatures: Dispatcher [employer] EDMS Betty Frost, Ken Reg gb Adebayo, Ria Jesus RN RN rs3 Batsheva Zabala RN RN ld5 Finn Bangura, RPA-C RPA-[id number] Charlotte Gibson RN lf1 Charlotte Gibson RN lf1 The chart was reviewed and I authenticate all verbal orders and agree with the evaluation and treatment provided.Attachments: 12/12 21:42 [facility] [place] Payment Agreement zo 12/13 10:15 T-Sheet-- Draft Copy gb Chart Complete MTDD
== END 2016-12-13 01:24 | disposition home or self-care (01) ==
LOC: M ED 19:03
DX: R10.9 Unspecified abdominal pain (principal); E11.65 Type 2 diabetes mellitus with hyperglycemia; I10 Essential (primary) hypertension; K86.1 Other chronic pancreatitis; K86.3 Pseudocyst of pancreas; K80.20 Calculus of gallbladder without cholecystitis without obstruction; F17.210 Nicotine dependence, cigarettes, uncomplicated; Z79.4 Long term (current) use of insulin; Z79.899 Other long term (current) drug therapy; Z88.6 Allergy status to analgesic agent
CPT/HCPCS: 36415; 74177; 80048; 80076; 81001; 82150; 82803; 83690; 85025; 87086; 99284; J2405; Q9967

== ENCOUNTER 2018-05-14 10:52 | Emergency (ER) | payer OTHER, BC ==
[2018-05-14] MEDS: MORPHINE 4 MG/ML 1ML VIAL/SYRINGE (J2270) IV ×2 (11:27→13:07)
[2018-05-14] MEDS: NS 1,000 ML IV (11:27)
[2018-05-14] MEDS: ONDANSETRON 4MG/2ML VIAL (J2405) IV (11:27)
[2018-05-14 11:29] LABS: BASO % 0.5 % (0.0-1.0); EOS # 0.1 10^3/uL (0.0-0.50); HEMATOCRIT 41.6 % (42.0-52.0); IMMATURE GRANULOCYTE % 0.3 % (0-3.0); LYMPH # 1.6 10^3/uL (1.5-4.5); LYMPH % 27.2 % (24.0-44.0); MEAN CORPUSCULAR HEMOGLOBIN 28.3 pg (27.0-33.0); MEAN CORPUSCULAR HGB CONC 33.7 g/dl (32.0-36.5); MEAN CORPUSCULAR VOLUME 84.2 fl (80.0-96.0); MONO # 0.3 10^3/uL (0.0-0.8); MONO % 4.9 % (0.0-5.0); NEUTROPHILS # 3.9 10^3/uL (1.8-7.7); NEUTROPHILS % 66.1 % (36.0-66.0); PLATELET COUNT, AUTOMATED 208 10^3/uL (150-450); RED BLOOD COUNT 4.94 10^6/uL (4.30-6.10); RED CELL DISTRIBUTION WIDTH 11.2 % (11.5-14.5); WHITE BLOOD COUNT 5.9 10^3/uL (4.0-10.0)
[2018-05-14 11:59] LABS: ALBUMIN 3.5 GM/DL (3.2-5.2); ALBUMIN/GLOBULIN RATIO 0.78 (1.00-1.93); ALKALINE PHOSPHATASE 117 U/L (45-117); ALT/SGPT 19 U/L (12-78); AMYLASE 42 U/L (25-115); ANION GAP 7 MEQ/L (8-16); AST/SGOT 11 U/L (7-37); BILIRUBIN,DIRECT 0.3 MG/DL (0.0-0.2); BLOOD UREA NITROGEN 15 MG/DL (7-18); CALCIUM LEVEL 9.3 MG/DL (8.5-10.1); CARBON DIOXIDE LEVEL 31 MEQ/L (21-32); CHLORIDE LEVEL 104 MEQ/L (98-107); CREATININE FOR GFR 1.13 MG/DL (0.70-1.30); GLOMERULAR FILTRATION RATE > 60.0 (>60); GLUCOSE, FASTING 247 MG/DL (70-100); LIPASE 111 U/L (73-393); POTASSIUM SERUM 3.6 MEQ/L (3.5-5.1); SODIUM LEVEL 142 MEQ/L (136-145)
[2018-05-14] MEDS ORDERED: ISOVUE-370 76% 100ML VIAL (Q9967) As Ordered (12:28)
== END 2018-05-14 14:26 | disposition home or self-care (01) ==
LOC: M ED 10:52
DX: K52.9 Noninfective gastroenteritis and colitis, unspecified (principal); E11.9 Type 2 diabetes mellitus without complications; I10 Essential (primary) hypertension; Z87.19 Personal history of other diseases of the digestive system; Z79.899 Other long term (current) drug therapy; Z79.4 Long term (current) use of insulin; Z88.8 Allergy status to other drugs, medicaments and biological substances; F17.210 Nicotine dependence, cigarettes, uncomplicated
CPT/HCPCS: J2270